=== PATIENT | female | born 1940 | race African-American/Black ===

== ENCOUNTER 2016-09-08 15:11 | Inpatient (IN) ==
[2016-09-08 15:35] LABS: Bilirubin,Urine Negative (Negative); Blood,Urine Moderate (Negative); Clarity,Urine Turbid (Clear); Color,Urine Yellow (Yellow); Glucose,Urine (UA) Normal (Normal); Ketones,Urine Negative (Negative); Leukocyte Esterase,Urine Large (Negative); Nitrite,Urine Positive (Negative); PH,Urine 7.5 pH Units (5.0-8.0); Protein,Urine 100 mg/dL (Neg-Trace); Specific Gravity,Urine 1.013 (1.010-1.025); Urobilinogen,Urine Normal (Normal)
[2016-09-08 15:37] LABS: Bacteria,Urine Many per hpf (None-Few); Hyaline Casts,Urine None Seen per lpf (None-Few); RBC,Urine 15-30 per hpf (0-3); Squamous Epithelial Cell,Urine Many per lpf (None-Few); WBC,Urine TNTC per hpf (0-3)
--- NOTE | 2016-09-08 16:00 | Emergency Department Note ---
Disposition Clinical Impression: Renal failure Disposition: Admitted As Inpatient Condition: Good Referrals: NO,PCP [Primary Care Provider] - Forms: ED Satisfaction Letter SOB HPI - General Chief Complaint: ED Shortness of Breath/Dyspnea Stated Complaint: SOB / Edema Time Seen by Provider: 09/08/16 15:25 Source: EMS Limitations: no limitations Nursing Notes Reviewed: Yes Vital Signs Reviewed: Yes - History of Present Illness Patient presents with shortness of breath, profuse days. Family notes the patient is developing fluid over past month she is a 26 pounds. Patient denies chest pain. EMS reports the patient is alert to person but not to place to time. Unsure if this is patient's baseline. Patient denies any bowel bladder dysfunction. One of her family members relates that the patient was supposedly on dialysis last month but refused at that time. - Related Data Home Medications Medication Instructions Recorded Confirmed Acetaminophen [Tylenol] 500 mg PO Q6HR 09/08/16 09/08/16 Amlodipine Besylate 10 mg PO DAILY 09/08/16 09/08/16 Aspirin 81 mg PO DAILY 09/08/16 09/08/16 Cholecalciferol (Vitamin D3) 1,000 unit PO DAILY 09/08/16 09/08/16 [Vitamin D] Cyanocobalamin (Vitamin B-12) 1,000 mcg SL DAILY 09/08/16 09/08/16 [Vitamin B-12] Furosemide [Lasix] 40 mg PO DAILY 09/08/16 09/08/16 Glucagon,Human Recombinant 1 mg IJ ONCE PRN 09/08/16 09/08/16 [Glucagon Emergency Kit] Insulin Glargine,Hum.rec.anlog 5 unit SQ HS 09/08/16 09/08/16 [Lantus Solostar] Labetalol HCl 200 mg PO BID 09/08/16 09/08/16 Lactulose 60 ml PO BID PRN 09/08/16 09/08/16 Lidocaine [Anecream5] 1 appl TP TID 09/08/16 09/08/16 Pravastatin Sodium [Pravachol] 20 mg PO DAILY 09/08/16 09/08/16 Spironolactone [Aldactone] 25 mg PO DAILY 09/08/16 09/08/16 Allergies Allergy/AdvReac Type Severity Reaction Status Date / Time iodine Allergy Rash Verified 01/24/15 18:30 Penicillins [PCN] Allergy Redness of Verified 01/24/15 18:30 Skin All systems ED: reviewed and negative except as stated. Past Medical History - Past Medical History Source: patient, obtained from family Medical history: Reports: dementia, diabetes, hyperlipidemia, hypertension, renal disease Surgical history: Reports: coronary bypass (CABG), other (daughter thinks maybe patient has had CHF but unsure; patient has no PCP) - Social History Smoking Status: Never smoker Smokeless Tobacco Status: No Alcohol use: Reports: none Drug use: Reports: none Physical Exam - General Limitations: no limitations General appearance: alert - Head Head exam: atraumatic, normocephalic, normal inspection - Eye Eye exam: Present: normal appearance, PERRL, EOMI - ENT ENT exam: normal exam, normal oropharynx, mucous membranes moist - Neck Neck exam: Present: normal inspection, full ROM, trachea midline - Chest Chest inspection: Present: normal inspection, symmetric chest wall rise - Respiratory Respiratory exam: Present: normal lung sounds bilaterally - Cardiovascular Cardiovascular exam: Present: regular rate, normal rhythm, normal heart sounds - Abdominal Exam Abdominal exam: Present: soft, Non-Tender. Absent: tenderness, distention, guarding, rebound, rigidity - Extremities Exam Extremities exam: Present: pedal edema. Absent: tenderness, calf tenderness - Back Exam Back exam: Present: normal inspection, full ROM. Absent: tenderness - Neurological Exam Neurological exam: Present: alert - Psychiatric Psychiatric exam: Present: normal affect. Absent: agitated, anxious - Skin Skin exam: Present: warm, dry, intact, normal color Course Vital Signs Temperature 98.7 F 09/08/16 15:13 Pulse Rate 102 09/08/16 15:13 Respiratory Rate 20 09/08/16 15:13 Blood Pressure 161/87 09/08/16 15:13 O2 Sat by Pulse Oximetry 98 09/08/16 15:13 Temperature 98.7 F 09/08/16 15:13 Pulse Rate 102 09/08/16 15:13 Respiratory Rate 20 09/08/16 15:13 Blood Pressure 161/87 09/08/16 15:13 O2 Sat by Pulse Oximetry 98 09/08/16 15:20 Oxygen Delivery Oxygen Delivery Room Air Shortness of Breath/Dyspnea - MDM Narrative Medical decision making narrative: Patient appears to have worsening renal failure. Patient does have an elevated BNP but I feel this secondary to fluid retention secondary to the kidney dysfunction. Discussed this patient with the hospitalist service who will admit patient to their service for further care work. Discussed dialysis with the patient, she is amenable to having dialysis at this time. - Differential Diagnosis Likely: congestive heart failure, pneumonia, pulmonary embolism - Lab Data Lab results reviewed: Yes I reviewed the patient's lab results. Result diagrams: 09/08/16 16:37 09/08/16 16:37 Lab Results 09/08/16 09/08/16 09/08/16 Range/Units 15:27 16:37 16:37 WBC 6.4 (4.3-11.1) K/mcL RBC 2.32 L (3.82-4.97) M/mcL Hgb 6.7 L (11.5-15.4) g/dL Hct 21.4 L (35.3-44.9) % MCV 92.2 (83.0-100.0) fL MCH 28.9 (28.0-33.3) pg MCHC 31.3 L (31.6-35.5) g/dL RDW 14.7 H (11.5-14.5) % Plt Count 226 (140-400) K/mcL MPV 8.6 L (9.4-12.4) fL Immature Gran % 0.2 (0-4) % Seg Neutrophils % 69.8 % Lymphocytes % 15.7 % Monocytes % 9.4 % Eosinophils % 4.6 % Basophils % 0.3 % Neutrophils # 4.4 (1.6-8.9) K/mcL Lymphocytes # 1.0 (0.6-4.6) K/mcL Monocytes # 0.6 (0.0-1.3) K/mcL Eosinophils # 0.3 (0.0-0.6) K/mcL Basophils # 0.0 (0.0-0.2) K/mcL PT (9.4-12.1) Seconds INR APTT (26.0-36.0) Seconds Sodium 133 L (136-145) mEq/L Potassium 5.7 H (3.5-4.5) mEq/L Chloride 107 (98-109) mEq/L Carbon Dioxide 19 (19-29) mEq/L BUN 59 H (7-20) mg/dL Creatinine 5.15 H (0.57-1.11) mg/dL Est GFR ( Amer) 10 L (> 60) Est GFR (Non-Af Amer) 8 L (> 60) BUN/Creatinine Ratio 11 (6-26) Glucose 149 H (70-99) mg/dL Calculated Osmolality 295 (280-300) Lactic Acid (0.5-2.2) mmol/L Calcium 8.8 (8.6-10.8) mg/dL Total Bilirubin 0.4 (0.2-1.2) mg/dL Direct Bilirubin 0.2 (0.0-0.5) mg/dL Indirect Bilirubin 0.2 (0.0-1.2) mg/dL AST 12 (5-34) Units/L ALT 13 (0-55) Units/L Alkaline Phosphatase 83 (38-126) Units/L Troponin I (0-0.03) ng/mL B-Natriuretic Peptide (0-100) pg/mL Serum Total Protein 6.6 (6.0-8.3) g/dL Albumin 3.3 L (3.5-5.0) g/dL Globulin 3.3 (2.4-3.5) g/dL Albumin/Globulin Ratio 1.0 L (1.1-2.2) Urine Color Yellow (Yellow) Urine Clarity Turbid A (Clear) Urine pH 7.5 (5.0-8.0) pH Units Ur Specific [place] 1.013 (1.010-1.025) Urine Protein 100 H (Neg-Trace) mg/dL Urine Glucose (UA) Normal (Normal) mg/dL Urine Ketones Negative (Negative) mg/dL Urine Blood Moderate H (Negative) Urine Nitrite Positive A (Negative) Urine Bilirubin Negative (Negative) Urine Urobilinogen Normal (Normal) mg/dL Ur Leukocyte Esterase Large H (Negative) Urine Microscopic RBC 15-30 H (0-3) per hpf Urine Microscopic WBC TNTC H (0-3) per hpf Ur Squamous Epith Cells Many H (None-Few) per lpf Urine Bacteria Many H (None-Few) per hpf Hyaline Casts None Seen (None-Few) per lpf Ur Culture Indicated? YES A (NO) 09/08/16 09/08/16 09/08/16 Range/Units 16:37 16:37 16:37 WBC (4.3-11.1) K/mcL RBC (3.82-4.97) M/mcL Hgb (11.5-15.4) g/dL Hct (35.3-44.9) % MCV (83.0-100.0) fL MCH (28.0-33.3) pg MCHC (31.6-35.5) g/dL RDW (11.5-14.5) % Plt Count (140-400) K/mcL MPV (9.4-12.4) fL Immature Gran % (0-4) % Seg Neutrophils % % Lymphocytes % % Monocytes % % Eosinophils % % Basophils % % Neutrophils # (1.6-8.9) K/mcL Lymphocytes # (0.6-4.6) K/mcL Monocytes # (0.0-1.3) K/mcL Eosinophils # (0.0-0.6) K/mcL Basophils # (0.0-0.2) K/mcL PT (9.4-12.1) Seconds INR APTT (26.0-36.0) Seconds Sodium (136-145) mEq/L Potassium (3.5-4.5) mEq/L Chloride (98-109) mEq/L Carbon Dioxide (19-29) mEq/L BUN (7-20) mg/dL Creatinine (0.57-1.11) mg/dL Est GFR ( Amer) (> 60) Est GFR (Non-Af Amer) (> 60) BUN/Creatinine Ratio (6-26) Glucose (70-99) mg/dL Calculated Osmolality (280-300) Lactic Acid 0.5 (0.5-2.2) mmol/L Calcium (8.6-10.8) mg/dL Total Bilirubin (0.2-1.2) mg/dL Direct Bilirubin (0.0-0.5) mg/dL Indirect Bilirubin (0.0-1.2) mg/dL AST (5-34) Units/L ALT (0-55) Units/L Alkaline Phosphatase (38-126) Units/L Troponin I 0.03 (0-0.03) ng/mL B-Natriuretic Peptide 836 H (0-100) pg/mL Serum Total Protein (6.0-8.3) g/dL Albumin (3.5-5.0) g/dL Globulin (2.4-3.5) g/dL Albumin/Globulin Ratio (1.1-2.2) Urine Color (Yellow) Urine Clarity (Clear) Urine pH (5.0-8.0) pH Units Ur Specific [place] (1.010-1.025) Urine Protein (Neg-Trace) mg/dL Urine Glucose (UA) (Normal) mg/dL Urine Ketones (Negative) mg/dL Urine Blood (Negative) Urine Nitrite (Negative) Urine Bilirubin (Negative) Urine Urobilinogen (Normal) mg/dL Ur Leukocyte Esterase (Negative) Urine Microscopic RBC (0-3) per hpf Urine Microscopic WBC (0-3) per hpf Ur Squamous Epith Cells (None-Few) per lpf Urine Bacteria (None-Few) per hpf Hyaline Casts (None-Few) per lpf Ur Culture Indicated? (NO) 09/08/16 Range/Units 16:37 WBC (4.3-11.1) K/mcL RBC (3.82-4.97) M/mcL Hgb (11.5-15.4) g/dL Hct (35.3-44.9) % MCV (83.0-100.0) fL MCH (28.0-33.3) pg MCHC (31.6-35.5) g/dL RDW (11.5-14.5) % Plt Count (140-400) K/mcL MPV (9.4-12.4) fL Immature Gran % (0-4) % Seg Neutrophils % % Lymphocytes % % Monocytes % % Eosinophils % % Basophils % % Neutrophils # (1.6-8.9) K/mcL Lymphocytes # (0.6-4.6) K/mcL Monocytes # (0.0-1.3) K/mcL Eosinophils # (0.0-0.6) K/mcL Basophils # (0.0-0.2) K/mcL PT 11.9 (9.4-12.1) Seconds INR 1.1 APTT 30.1 (26.0-36.0) Seconds Sodium (136-145) mEq/L Potassium (3.5-4.5) mEq/L Chloride (98-109) mEq/L Carbon Dioxide (19-29) mEq/L BUN (7-20) mg/dL Creatinine (0.57-1.11) mg/dL Est GFR ( Amer) (> 60) Est GFR (Non-Af Amer) (> 60) BUN/Creatinine Ratio (6-26) Glucose (70-99) mg/dL Calculated Osmolality (280-300) Lactic Acid (0.5-2.2) mmol/L Calcium (8.6-10.8) mg/dL Total Bilirubin (0.2-1.2) mg/dL Direct Bilirubin (0.0-0.5) mg/dL Indirect Bilirubin (0.0-1.2) mg/dL AST (5-34) Units/L ALT (0-55) Units/L Alkaline Phosphatase (38-126) Units/L Troponin I (0-0.03) ng/mL B-Natriuretic Peptide (0-100) pg/mL Serum Total Protein (6.0-8.3) g/dL Albumin (3.5-5.0) g/dL Globulin (2.4-3.5) g/dL Albumin/Globulin Ratio (1.1-2.2) Urine Color (Yellow) Urine Clarity (Clear) Urine pH (5.0-8.0) pH Units Ur Specific [place] (1.010-1.025) Urine Protein (Neg-Trace) mg/dL Urine Glucose (UA) (Normal) mg/dL Urine Ketones (Negative) mg/dL Urine Blood (Negative) Urine Nitrite (Negative) Urine Bilirubin (Negative) Urine Urobilinogen (Normal) mg/dL Ur Leukocyte Esterase (Negative) Urine Microscopic RBC (0-3) per hpf Urine Microscopic WBC (0-3) per hpf Ur Squamous Epith Cells (None-Few) per lpf Urine Bacteria (None-Few) per hpf Hyaline Casts (None-Few) per lpf Ur Culture Indicated? (NO) - Radiology Data Radiology results reviewed: Yes I reviewed the patient's radiology results. Chest X-Ray 09/08/16 15:26 IMPRESSION: No acute abnormality. Mild cardiomegaly. D/ / All Higuera MD / All Higuera MD Interpreting Provider: All Higuera MD - EKG Data EKG attestation: Yes I reviewed and interpreted this EKG. EKG results narrative: T-wave inversion in lateral leads may indicate lateral ischemia when compared to previous EKG EKG shows normal: Reports: sinus rhythm Rate: Reports: normal Rhythm: Reports: NSR Critical Care Time Total Critical Care Time: 60 Attestation: Critical care performed: Time is exclusive of separately billable procedures. Time includes: direct patient care, patient reassessment, coordination of patient care, interpretation of data (laboratory data, radiology data, and respiratory data), review of patient's medical records, medical consultation and documentation of patient care. Procedures included in critical care time: Procedures excluded from critical care time:
[2016-09-08 16:48] LABS: Basophils % 0.3 %; Eosinophils # 0.3 K/mcL (0.0-0.6); Eosinophils % 4.6 %; Hematocrit 21.4 % (35.3-44.9); Hemoglobin 6.7 g/dL (11.5-15.4); Immature Granulocytes % 0.2 % (0-4); Lymphocytes % 15.7 %; Mean Corpuscular HGB Conc 31.3 g/dL (31.6-35.5); Mean Corpuscular Hemoglobin 28.9 pg (28.0-33.3); Mean Corpuscular Volume 92.2 fL (83.0-100.0); Mean Platelet Volume 8.6 fL (9.4-12.4); Monocytes # 0.6 K/mcL (0.0-1.3); Monocytes % 9.4 %; Neutrophils # 4.4 K/mcL (1.6-8.9); Platelet Count 226 K/mcL (140-400); Red Blood Count 2.32 M/mcL (3.82-4.97); Red Cell Distribution Width 14.7 % (11.5-14.5); Segmented Neutrophils % 69.8 %
[2016-09-08 16:55] LABS: INR 1.1; Prothrombin Time 11.9 Seconds (9.4-12.1)
[2016-09-08 16:57] LABS: Activated Partial Thrombo Time 30.1 Seconds (26.0-36.0)
[2016-09-08 17:03] LABS: Albumin 3.3 g/dL (3.5-5.0); Bilirubin,Direct 0.2 mg/dL (0.0-0.5); Bilirubin,Indirect 0.2 mg/dL (0.0-1.2); Bilirubin,Total 0.4 mg/dL (0.2-1.2); Calcium 8.8 mg/dL (8.6-10.8); Globulin 3.3 g/dL (2.4-3.5); Potassium 5.7 mEq/L (3.5-4.5); Total Protein 6.6 g/dL (6.0-8.3)
[2016-09-08] MEDS ORDERED: *HR* OxyCODONE Immed Rel 5 MG TABLET PO PRN (22:01)
[2016-09-08] MEDS ORDERED: *HR* Morphine 2 MG/ML SYRINGE IVP PRN (22:01)
[2016-09-08] MEDS ORDERED: Naloxone 0.4 MG/ML INJ IVP PRN (22:01)
[2016-09-08] MEDS ORDERED: Pantoprazole 40 MG VIAL IVP STA (22:01)
[2016-09-08] MEDS ORDERED: Ondansetron 4 MG/2 ML VIAL IVP PRN (22:01)
[2016-09-08] MEDS ORDERED: Acetaminophen 325 MG TABLET PO PRN (22:01)
[2016-09-08] MEDS ORDERED: *HR* Dextrose 50 % in Water (Syg) 50 ML SYRINGE IVP PRN (22:14)
[2016-09-08] MEDS ORDERED: Dextrose Gel 15 GM PO PRN ×2 (22:14)
[2016-09-08] MEDS ORDERED: D5% in Water 1,000 ML IVC PRN (22:14)
[2016-09-08] MEDS ORDERED: Bumetanide 1 MG/4 ML VIAL IVP STA (22:17)
[2016-09-08] MEDS ORDERED: metOLazone 2.5 MG TABLET PO STA (22:17)
[2016-09-08] MEDS ORDERED: Ipratropium/Albuterol Neb 3 ML IH PRN (22:21)
[2016-09-08] MEDS ORDERED: Benzonatate 100 MG CAPSULE PO PRN (22:21)
[2016-09-08] MEDS ORDERED: Lactulose Oral Soln 20 GM/30 ML UDC PO ONE (22:21)
[2016-09-08] MEDS ORDERED: Lactulose Oral Soln 20 GM/30 ML UDC PO PRN (22:35)
--- NOTE | 2016-09-08 22:48 | Internal Med History&Physical ---
Date of Encounter: 09/08/16 Time of Encounter: 22:00 Assessment and Plan (1) CKD (chronic kidney disease) stage 5, GFR less than 15 ml/min Current visit: Yes Status: Chronic . (2) BERNADETTE (acute kidney injury) Current visit: Yes Status: Acute . (3) Acute respiratory failure, unspecified whether with hypoxia or hypercapnia Current visit: Yes Status: Acute . Qualifiers: Respiratory failure complication: unspecified whether with hypoxia or hypercapnia Qualified Code(s): J96.00 - Acute respiratory failure, unspecified whether with hypoxia or hypercapnia (4) Dementia arising in the senium and presenium Current visit: Yes Status: Chronic . (5) Type 2 diabetes mellitus Current visit: Yes Status: Chronic . Qualifiers: Diabetes mellitus complication status: with unspecified complications Diabetes mellitus intermodal customer service insulin use: unspecified intermodal customer service insulin use status Qualified Code(s): E11.8 - Type 2 diabetes mellitus with unspecified complications (6) HTN (hypertension) Current visit: Yes Status: Chronic . Qualifiers: Hypertension type: unspecified secondary hypertension Qualified Code(s): I15.9 - Secondary hypertension, unspecified; I15 - Secondary hypertension (7) HLD (hyperlipidemia) Current visit: Yes Status: Chronic . Qualifiers: Hyperlipidemia type: mixed hyperlipidemia Qualified Code(s): E78.2 - Mixed hyperlipidemia (8) CAD (coronary artery disease), [place] coronary artery Current visit: Yes Status: Chronic . Qualifiers: [place] vs. transplanted heart: [place] heart Associated angina: without angina Qualified Code(s): I25.10 - Atherosclerotic heart disease of [place] coronary artery without angina pectoris (9) Hx of CABG Current visit: Yes Status: Chronic . (10) UTI (urinary tract infection) Current visit: Yes Status: Acute . Qualifiers: Urinary tract infection type: acute cystitis Hematuria presence: without hematuria Qualified Code(s): N30.00 - Acute cystitis without hematuria (11) Anasarca associated with disorder of kidney Current visit: Yes Status: Acute . (12) Nephrotic range proteinuria Current visit: Yes Status: Acute . Internal Medicine - H&P: HPI Chief complaint: Difficulty breathing. Peripheral edema. Confusion. Admitted From: Emergency Dept Plans for Post Hospital Care: Home History of present illness: Ms. Montoya is a 75 year old female significant medical history type II DM, CAD /CABG/AMI, osteoarthritis, osteoporosis/vitamin D deficiency, nonoliguric CKD stage V, dementia unspecified, hypertension, dyslipidemia, urinary retention/ rec UTIs, nephrolithiasis, obesity, nonsmoker. The patient is admitted to [facility] through the emergency department when she presented company of family via EMS services from home to evaluate progressive shortness of breath. Patient acknowledges via family validated history gradual fluid retention/weight gain of approximately 26 pounds in the last month. As a consequence acknowledges some dyspnea at rest and with exertion, peripheral edema, and general malaise. There is no associated chest pain perceived. There is no upper or lower respiratory complaints of productive cough and chest congestion audible wheezing. She acknowledges some PND and mild orthopnea. There is no reported fevers chills sweats nausea vomiting abdominal pain. The patient had been evaluated within the year for possible initiation of hemodialysis due to progressive renal function decline. Patient however declined enrollment. Trending of the creatinines and found them to be essentially stable at the 4.0-4.9 range for 2017. This month's creatinine is stuck the highest recorded at 5.15 with BUN of 59 and a GFR of 8. Additional findings noted stable vital signs. Pulse rate however elevated at 102 sinus rhythm. Respiratory rate 20. Afebrile. Pulse oximetry 98% on room air. Blood pressure 161/87 without orthostasis. WBC 6.4 hemoglobin 6.7 platelets 226 ,000. RDW 14.7. Differential normal. Comprehensive metabolic panel sodium 133 potassium 5.7. BUN 59 creatinine 5.15 GFR 8. Glucose 149, osmolality 295. Hepatic function normal. Albumin 3.3 with a total protein 6.6. Urinalysis demonstrated large protein and moderate blood and positive nitrite. Large leukocyte esterase. 30 RBC. WBC were too numerous to count. Many squamous epithelial cells. Many bacteria. Lactic acid 0.5. Troponin 0.0. BNP 836. PT 11.9 INR 1.1 PTT 30.1. Chest x-ray demonstrated no acute abnormality. Patient is status post CABG. No focal infiltrate or consolidations seen. No evidence of pneumothorax or measurable pleural effusion. Mild cardiomegaly noted. EKG demonstrates normal sinus rhythm. No acute ischemic changes. Preliminary impression suggest worsening chronic kidney disease stage V. Patient is yet to initiate preparation for end-stage renal disease hemodialysis. Impressive diffuse edema consistent with anasarca due to end- stage renal disease is apparent. Metabolic and electrolyte derangements also insisted with progressive end-stage disease. Suspect associated nephrotic syndrome given the degree of proteinuria evident in urinalysis and significant peripheral edema born by the patient. Urinalysis suggests a concomitant infection. Patient is nonoliguric. SIRS/sepsis criteria not fulfilled at the time of admission. Although the patient had reportedly declined enrollment hemodialysis in the past so she seems amenable to it at this time. However due to her degree of dementia is hard to validate She is however at increased risk for further acute clinical decline, morbidility and mortality given her presentation and comorbid conditions. Workup and treatments will proceed comprehensively. The patient was visited and interviewed and examined. She presents mildly encephalopathic but appropriate. Response to direct questions were appropriate and direct in response. She accepted at least in principal the need for further evaluation of her kidney function and intervention. We discussed consulting a specialist in nephrology. She accepted this. We discussed providing her intravenous diuretic therapy to offload the volume excess. She accepted this. At no time did she demand release from continuing appropriate medical care or potential surgical intervention. Again further investigation of her complete understanding of her current health situation and commitment is required. Cumulative laboratory and radiographic database was reviewed and considered. Consultative opinions will be sought as clinical circumstances justify. Initial consultative opinion has been requested of nephrology. Consultation of psychiatry will be considered for assessment of competency at the discretion of the attending team. Plan of care has been discussed with the patient. Questions were addressed. Hospital course will be dependent upon clinical findings, treatment response and potential consultative interventions. Given the patient's presenting concerns, past medical history, clinical findings and symptoms, she is admitted at this time to undergo further evaluation and disposition. Orders were written as per the computerized physician time recorder system. Condition is serious. Very high risk presentation for poor outcome. Evolving multiorgan derangements apparent. Prognosis is highly guarded. CODE STATUS is DNR comfort care arrest Past Med Surg Social Fam HX - Past Medical History Source: old records reviewed Medical history: arthritis, coronary artery disease, dementia, diabetes, hyperlipidemia, hypertension, kidney stones, myocardial infarction, osteoporosis (Vitamin D deficiency.), renal disease, other Psychiatric history: other - Past Surgical History Surgical History: coronary bypass (CABG), other - Social History Smoking Status: Never smoker Smokeless Tobacco Status: No Alcohol use: none Drug use: none Occupational status: retired Current living situation: Home, With Family Activity Level: Independent ambulation, Mostly sedentary Recent Out of Country Travel Within the Last 8 Weeks: No Exposure or Possible Exposure to Illness During Travel: No - Family History Mother History Unknown: Yes Internal Medicine - H&P: Meds Acetaminophen [Tylenol] 500 mg PO Q6HR 09/08/16 [History] Amlodipine Besylate 10 mg PO DAILY 09/08/16 [History] Aspirin 81 mg PO DAILY 09/08/16 [History] Cholecalciferol (Vitamin D3) [Vitamin D] 1,000 unit PO DAILY 09/08/16 [History] Cyanocobalamin (Vitamin B-12) [Vitamin B-12] 1,000 mcg SL DAILY 09/08/16 [ History] Furosemide [Lasix] 40 mg PO DAILY 09/08/16 [History] Glucagon,Human Recombinant [Glucagon Emergency Kit] 1 mg IJ ONCE PRN 09/08/16 [ History] Insulin Glargine,Hum.rec.anlog [Lantus Solostar] 5 unit SQ HS 09/08/16 [History] Labetalol HCl 200 mg PO BID 09/08/16 [History] Lactulose 60 ml PO BID PRN 09/08/16 [History] Lidocaine [Anecream5] 1 appl TP TID 09/08/16 [History] Pravastatin Sodium [Pravachol] 20 mg PO DAILY 09/08/16 [History] Spironolactone [Aldactone] 25 mg PO DAILY 09/08/16 [History] Allergies iodine Allergy (Verified 01/24/15 18:30) Rash Penicillins [PCN] Allergy (Verified 01/24/15 18:30) Redness of Skin ROS unobtainable: due to mental status All Systems PM: A 10-system review of systems was performed and is negative for pertinent findings except as documented above in the HPI. The patient presents with underlying history of dementia and is a limited historian of the current circumstances and events. Details are collected from EMS and ED triage by attending staff, review of available medical records and family members at the bedside. - Constitutional Constitutional: as per HPI - EENT Eyes: as per HPI Ears: as per HPI Nose, mouth and throat: as per HPI - Cardiovascular Cardiovascular ROS IM: as per HPI - Respiratory Respiratory: as per HPI - Gastrointestinal Gastrointestinal: as per HPI - Genitourinary Genitourinary: as per HPI - Musculoskeletal Musculoskeletal ROS IM: as per HPI - Integumentary Integumentary IM: as per HPI - Neurological Neurological ROS: as per HPI - Psychiatric Psychiatric: as per HPI - Endocrine Endocrine IM: as per HPI - Hematologic/Lymphatic Hematologic/Lymphatic: as per HPI - Allergic/Immunologic Allergic/Immunologic: as per HPI - Constitutional Vitals: Temp Pulse Resp BP Pulse Ox 98.7 F 68 16 214/68 96 09/08/16 19:37 09/08/16 20:19 09/08/16 20:19 09/08/16 20:19 09/08/16 20:19 Vital Signs Temp Pulse Resp BP Pulse Ox 09/08/16 20:19 68 16 214/68 96 09/08/16 19:37 98.7 F 81 16 168/84 97 09/08/16 18:03 18 169/90 09/08/16 15:20 98 09/08/16 15:13 98.7 F 102 20 161/87 98 Intake and Output 09/08/16 09/08/16 09/08/16 07:59 15:59 23:59 Other: Weight 92.986 kg 94.2 kg Blood Glucose* 263 Patient Weight 09/08/16 23:59 Weight 94.2 kg General appearance: Present: cooperative, A&O X 1, mild distress, morbidly obese , answers questions appropriately - Head Head exam: Present: atraumatic, normocephalic - Eye Eye exam: Present: EOMI, PERRL, conjuntiva pink, sclera anicteric Pupils: Present: normal accommodation, PERRL - ENT ENT exam: Present: mucous membranes moist, normal oropharynx - Neck Neck exam general surgery: Present: supple, trachea midline. Absent: lymphadenopathy, nuchal rigidity - Respiratory Respiratory exam: Present: decreased breath sounds, rales. Absent: accessory muscle use, CTAB, respiratory distress, rhonchi, stridor, wheezes - Cardiovascular Cardiovascular exam: Present: distant heart sounds, RRR, +S1, +S2. Absent: diastolic murmur, gallop, rubs, systolic murmur - GI/Abdominal GI/Abdominal exam: Present: diminished bowel sounds, distended, soft, no peritoneal signs. Absent: guarding, rebound, tenderness - Extremities Exam Extremities exam: Present: pedal edema, warm, radial pulses palpable and symetrical. Absent: calf tenderness, cyanotic, normal inspection, tenderness - Neurological Exam Neurological exam: Present: alert, altered, CN II-XII intact, no focal deficits. Absent: oriented X3, pronater drift, facial droop, speech deficit - Expanded Neurological Exam Neurological exam expanded: Present: protecting the airway. Absent: expressive aphasia, receptive aphasia Patient oriented to: Present: person. Absent: place, time Speech: Present: garbled. Absent: expressive aphasia, receptive aphasia Coma Scale Eye Opening: Spontaneous Coma Scale Motor Response: Obeys Commands Coma Scale Verbal Response: Confused Coma Scale Total: 14 - Psychiatric Psychiatric exam: Present: normal affect, normal mood - Skin Skin exam: Present: dry, intact, warm. Absent: petechiae, rash, urticaria, vesicles Internal Med - H&P Results - Labs CBC & Chem 7: 09/08/16 16:37 09/08/16 16:37 Labs: Short CBC 09/08/16 Range/Units 16:37 WBC 6.4 (4.3-11.1) K/mcL Hgb 6.7 L (11.5-15.4) g/dL Hct 21.4 L (35.3-44.9) % Plt Count 226 (140-400) K/mcL Neutrophils # 4.4 (1.6-8.9) K/mcL BMP 09/08/16 Range/Units 16:37 Sodium 133 L (136-145) mEq/L Potassium 5.7 H (3.5-4.5) mEq/L Chloride 107 (98-109) mEq/L Carbon Dioxide 19 (19-29) mEq/L BUN 59 H (7-20) mg/dL Creatinine 5.15 H (0.57-1.11) mg/dL Glucose 149 H (70-99) mg/dL Calcium 8.8 (8.6-10.8) mg/dL Cardiac Enzymes 09/08/16 Range/Units 16:37 Troponin I 0.03 (0-0.03) ng/mL Liver Function 09/08/16 Range/Units 16:37 Total Bilirubin 0.4 (0.2-1.2) mg/dL Direct Bilirubin 0.2 (0.0-0.5) mg/dL AST 12 (5-34) Units/L ALT 13 (0-55) Units/L Alkaline Phosphatase 83 (38-126) Units/L Albumin 3.3 L (3.5-5.0) g/dL Urine 09/08/16 Range/Units 15:27 Urine Color Yellow (Yellow) Urine Clarity Turbid A (Clear) Urine pH 7.5 (5.0-8.0) pH Units Ur Specific [place] 1.013 (1.010-1.025) Urine Protein 100 H (Neg-Trace) mg/dL Urine Glucose (UA) Normal (Normal) mg/dL Abnormal lab results RBC 2.32 M/mcL (3.82-4.97) L 09/08/16 16:37 Hgb 6.7 g/dL (11.5-15.4) L 09/08/16 16:37 Hct 21.4 % (35.3-44.9) L 09/08/16 16:37 MCHC 31.3 g/dL (31.6-35.5) L 09/08/16 16:37 RDW 14.7 % (11.5-14.5) H 09/08/16 16:37 MPV 8.6 fL (9.4-12.4) L 09/08/16 16:37 Sodium 133 mEq/L (136-145) L 09/08/16 16:37 Potassium 5.7 mEq/L (3.5-4.5) H 09/08/16 16:37 BUN 59 mg/dL (7-20) H 09/08/16 16:37 Creatinine 5.15 mg/dL (0.57-1.11) H 09/08/16 16:37 Est GFR ( Amer) 10 (> 60) L 09/08/16 16:37 Est GFR (Non-Af Amer) 8 (> 60) L 09/08/16 16:37 Glucose 149 mg/dL (70-99) H 09/08/16 16:37 B-Natriuretic Peptide 836 pg/mL (0-100) H 09/08/16 16:37 Albumin 3.3 g/dL (3.5-5.0) L 09/08/16 16:37 Albumin/Globulin Ratio 1.0 (1.1-2.2) L 09/08/16 16:37 Urine Clarity Turbid (Clear) A 09/08/16 15:27 Urine Protein 100 mg/dL (Neg-Trace) H 09/08/16 15:27 Urine Blood Moderate (Negative) H 09/08/16 15:27 Urine Nitrite Positive (Negative) A 09/08/16 15:27 Ur Leukocyte Esterase Large (Negative) H 09/08/16 15:27 Urine Microscopic RBC 15-30 per hpf (0-3) H 09/08/16 15:27 Urine Microscopic WBC TNTC per hpf (0-3) H 09/08/16 15:27 Ur Squamous Epith Cells Many per lpf (None-Few) H 09/08/16 15:27 Urine Bacteria Many per hpf (None-Few) H 09/08/16 15:27 Ur Culture Indicated? YES (NO) A 09/08/16 15:27 Laboratory Results WBC 6.4 K/mcL (4.3-11.1) 09/08/16 16:37 RBC 2.32 M/mcL (3.82-4.97) L 09/08/16 16:37 Hgb 6.7 g/dL (11.5-15.4) L 09/08/16 16:37 Hct 21.4 % (35.3-44.9) L 09/08/16 16:37 MCV 92.2 fL (83.0-100.0) 09/08/16 16:37 MCH 28.9 pg (28.0-33.3) 09/08/16 16:37 MCHC 31.3 g/dL (31.6-35.5) L 09/08/16 16:37 RDW 14.7 % (11.5-14.5) H 09/08/16 16:37 Plt Count 226 K/mcL (140-400) 09/08/16 16:37 MPV 8.6 fL (9.4-12.4) L 09/08/16 16:37 Immature Gran % 0.2 % (0-4) 09/08/16 16:37 Seg Neutrophils % 69.8 % 09/08/16 16:37 Lymphocytes % 15.7 % 09/08/16 16:37 Monocytes % 9.4 % 09/08/16 16:37 Eosinophils % 4.6 % 09/08/16 16:37 Basophils % 0.3 % 09/08/16 16:37 Neutrophils # 4.4 K/mcL (1.6-8.9) 09/08/16 16:37 Lymphocytes # 1.0 K/mcL (0.6-4.6) 09/08/16 16:37 Monocytes # 0.6 K/mcL (0.0-1.3) 09/08/16 16:37 Eosinophils # 0.3 K/mcL (0.0-0.6) 09/08/16 16:37 Basophils # 0.0 K/mcL (0.0-0.2) 09/08/16 16:37 PT 11.9 Seconds (9.4-12.1) 09/08/16 16:37 INR 1.1 09/08/16 16:37 APTT 30.1 Seconds (26.0-36.0) 09/08/16 16:37 Sodium 133 mEq/L (136-145) L 09/08/16 16:37 Potassium 5.7 mEq/L (3.5-4.5) H 09/08/16 16:37 Chloride 107 mEq/L (98-109) 09/08/16 16:37 Carbon Dioxide 19 mEq/L (19-29) 09/08/16 16:37 BUN 59 mg/dL (7-20) H 09/08/16 16:37 Creatinine 5.15 mg/dL (0.57-1.11) H 09/08/16 16:37 Est GFR ( Amer) 10 (> 60) L 09/08/16 16:37 Est GFR (Non-Af Amer) 8 (> 60) L 09/08/16 16:37 BUN/Creatinine Ratio 11 (6-26) 09/08/16 16:37 Glucose 149 mg/dL (70-99) H 09/08/16 16:37 Calculated Osmolality 295 (280-300) 09/08/16 16:37 Lactic Acid 0.5 mmol/L (0.5-2.2) 09/08/16 16:37 Calcium 8.8 mg/dL (8.6-10.8) 09/08/16 16:37 Total Bilirubin 0.4 mg/dL (0.2-1.2) 09/08/16 16:37 Direct Bilirubin 0.2 mg/dL (0.0-0.5) 09/08/16 16:37 Indirect Bilirubin 0.2 mg/dL (0.0-1.2) 09/08/16 16:37 AST 12 Units/L (5-34) 09/08/16 16:37 ALT 13 Units/L (0-55) 09/08/16 16:37 Alkaline Phosphatase 83 Units/L (38-126) 09/08/16 16:37 Troponin I 0.03 ng/mL (0-0.03) 09/08/16 16:37 B-Natriuretic Peptide 836 pg/mL (0-100) H 09/08/16 16:37 Serum Total Protein 6.6 g/dL (6.0-8.3) 09/08/16 16:37 Albumin 3.3 g/dL (3.5-5.0) L 09/08/16 16:37 Globulin 3.3 g/dL (2.4-3.5) 09/08/16 16:37 Albumin/Globulin Ratio 1.0 (1.1-2.2) L 09/08/16 16:37 Urine Color Yellow (Yellow) 09/08/16 15: Urine Clarity Turbid (Clear) A 09/08/16 15: Urine pH 7.5 pH Units (5.0-8.0) 09/08/16 15: Ur Specific [place] 1.013 (1.010-1.025) 09/08/16 15: Urine Protein 100 mg/dL (Neg-Trace) H 09/08/16 15:27 Urine Glucose (UA) Normal mg/dL (Normal) 09/08/16 15: Urine Ketones Negative mg/dL (Negative) 09/08/16 15: Urine Blood Moderate (Negative) H 09/08/16 15:27 Urine Nitrite Positive (Negative) A 09/08/16 15: Urine Bilirubin Negative (Negative) 09/08/16 15: Urine Urobilinogen Normal mg/dL (Normal) 09/08/16 15:27 Ur Leukocyte Esterase Large (Negative) H 09/08/16 15:27 Urine Microscopic RBC 15-30 per hpf (0-3) H 09/08/16 15:27 Urine Microscopic WBC TNTC per hpf (0-3) H 09/08/16 15:27 Ur Squamous Epith Cells Many per lpf (None-Few) H 09/08/16 15:27 Urine Bacteria Many per hpf (None-Few) H 09/08/16 15:27 Hyaline Casts None Seen per lpf (None-Few) 09/08/16 15:27 Ur Culture Indicated? YES (NO) A 09/08/16 15:27 Impressions Chest X-Ray 09/08/16 15:26 IMPRESSION: No acute abnormality. Mild cardiomegaly. D/ / All Higuera MD / All Higuera MD Interpreting Provider: All Higuera MD Head CT 09/08/16 19:42 IMPRESSION: No acute intracranial abnormality. D/ / Carlito Roa MD / Carlito Roa MD Interpreting Provider: Carlito Roa MD - Impressions ITS Impressions Head CT 09/08/16 19:42
[2016-09-08 23:05] LABS: VBG HCO3 20.6 mEq/L (21-27); VBG PH 7.33 pH Units (7.32-7.42)
[2016-09-08] MEDS ORDERED: 0.9 % Sodium Chloride 1,000 ML ONE (23:06)
[2016-09-08 23:14] LABS: Hemoglobin A1C 4.8 %
[2016-09-08] MEDS: Bumetanide 12 MG in D5% in Water 48 ML IVC SCH (23:39)
[2016-09-09 03:41] LABS: Protein/Creatinine Ratio,Urine 5.23 mg/mg (0-0.20)
[2016-09-09] MEDS: *HR* Heparin 5,000 UNIT/ML VIAL SQ SCH ×2 (06:10→16:54)
[2016-09-09 06:13] LABS: Basophils % 0.4 %; Eosinophils # 0.3 K/mcL (0.0-0.6); Eosinophils % 3.6 %; Hematocrit 20.2 % (35.3-44.9); Hemoglobin 6.5 g/dL (11.5-15.4); Immature Granulocytes % 0.3 % (0-4); Lymphocytes # 1.3 K/mcL (0.6-4.6); Lymphocytes % 17.5 %; Mean Corpuscular HGB Conc 32.2 g/dL (31.6-35.5); Mean Corpuscular Hemoglobin 29.4 pg (28.0-33.3); Mean Corpuscular Volume 91.4 fL (83.0-100.0); Mean Platelet Volume 8.8 fL (9.4-12.4); Monocytes # 0.9 K/mcL (0.0-1.3); Monocytes % 11.5 %; Platelet Count 211 K/mcL (140-400); Red Blood Count 2.21 M/mcL (3.82-4.97); Red Cell Distribution Width 14.8 % (11.5-14.5); Segmented Neutrophils % 66.7 %
[2016-09-09 06:17] LABS: Ionized Calcium 1.15 mmol/L (1.15-1.35)
[2016-09-09 06:30] LABS: Calcium 9.1 mg/dL (8.6-10.8); Chol/HDL Ratio 2.7 (0-4.9); Magnesium 1.7 mg/dL (1.6-2.6); Phosphorous 5.5 mg/dL (2.3-4.7); Potassium 5.3 mEq/L (3.5-4.5)
[2016-09-09] MEDS: Insulin LISPRO 300 UNITS/3 ML VIAL SQ SCH ×4 (07:29→20:44)
[2016-09-09] MEDS: Aspirin 81 MG TAB.CHEW PO SCH (09:16)
[2016-09-09] MEDS: Cyanocobalamin (B-12) 1,000 MCG TABLET PO SCH (09:17)
[2016-09-09] MEDS: amLODIPine 5 MG TABLET PO SCH (09:17)
[2016-09-09] MEDS: Cholecalciferol (D-3) 1,000 UNIT TABLET PO SCH (09:17)
--- NOTE | 2016-09-09 09:20 | Nephrology Consult Note ---
Date of Encounter: 10/08/16 Time of Encounter: 09:17 Assessment and Plan (1) CKD (chronic kidney disease) stage 5, GFR less than 15 ml/min Status: Chronic I would like this note to be deleted. O Patient with progressive stage 5 CKD likely secondary to hypertension and diabetes. From looking at eCW it appears that the patient has poor follow-up with physicians. She recalls having a conversation with a doctor about dialysis, but can't recall the name of the physician or when she had the conversation. (2) Anemia Status: Acute Likely related to CKD. Evaluate for a source of bleeding. Will check iron stores, vitamin b12 and folate. Likely contributed to sensation of dyspnea. Transfuse as needed. Will likely need RUBIN. Qualifiers: Anemia type: unspecified type Qualified Code(s): D64.9 - Anemia, unspecified (3) Hyperphosphatemia Status: Chronic Start phosphate binder. (4) Type 2 diabetes mellitus Status: Chronic Per primary team. Qualifiers: Diabetes mellitus complication status: with unspecified complications Diabetes mellitus half-way insulin use: unspecified bed bug exterminator insulin use status Qualified Code(s): E11.8 - Type 2 diabetes mellitus with unspecified complications (5) HTN (hypertension) Status: Chronic Patient with uncontrolled hypertension. Goal blood pressure <130/80 if tolerated. Qualifiers: Hypertension type: unspecified secondary hypertension Qualified Code(s): I15.9 - Secondary hypertension, unspecified; I15 - Secondary hypertension History of Present Illness - Reason for Consult Consult date: 09/09/16 Chronic Kidney Disease - Chief Complaint CKD - History of Present Illness I would like this note deleted. Past Med Surg Social Fam HX - Past Medical History Medical history: arthritis, coronary artery disease, dementia, diabetes, hyperlipidemia, hypertension, kidney stones, myocardial infarction, osteoporosis (Vitamin D deficiency.), renal disease, other Psychiatric history: other - Past Surgical History Surgical History: coronary bypass (CABG), other - Social History Smoking Status: Never smoker Smokeless Tobacco Status: No Alcohol use: none Drug use: none - Family History Mother History Unknown: Yes Medications and Allergies Acetaminophen [Tylenol] 500 mg PO Q6HR 09/08/16 [History] Amlodipine Besylate 10 mg PO DAILY 09/08/16 [History] Aspirin 81 mg PO DAILY 09/08/16 [History] Cholecalciferol (Vitamin D3) [Vitamin D3] 1,000 unit PO DAILY 09/08/16 [History] Cyanocobalamin (Vitamin B-12) [Vitamin B-12] 1,000 mcg SL DAILY 09/08/16 [ History] Glucagon,Human Recombinant [Glucagon Emergency Kit] 1 mg IJ ONCE PRN 09/08/16 [ History] Lactulose 60 ml PO BID PRN 09/08/16 [History] Lidocaine [Anecream5] 1 appl TP TID 09/08/16 [History] Pravastatin Sodium [Pravachol] 20 mg PO DAILY 09/08/16 [History] Darbepoetin [Aranesp] 100 mcg SQ QWEEK syringe 09/20/16 [Rx] Donepezil [Aricept] 5 mg PO HS tablet 09/20/16 [Rx] Folic Acid 5 mg PO DAILY tablet 09/20/16 [Rx] Insulin DETEMIR [Levemir] 5 unit SQ HS [id number] 09/20/16 [Rx] Labetalol [Trandate] 300 mg PO TID tablet 09/20/16 [Rx] hydrALAZINE [HydrALAZINE] 50 mg PO TID #0 tablet 09/20/16 [Rx] Allergies iodine Allergy (Verified 01/24/15 18:30) Rash Penicillins [PCN] Allergy (Verified 01/24/15 18:30) Redness of Skin Exam - Vital Signs Vital signs: Initial Vital Signs Temp Pulse Resp BP Pulse Ox 98.7 F 102 20 161/87 98 09/08/16 15:13 09/08/16 15:13 09/08/16 15:13 09/08/16 15:13 09/08/16 15:13 Vital Signs - Last 8 Hours Temp Pulse Resp BP Pulse Ox 09/09/16 06:42 98.8 F 79 16 169/84 100 09/09/16 04:32 98.3 F 81 16 170/73 97 Intake and Output 09/08/16 09/09/16 09/09/16 23:59 07:59 15:59 Output Total 725 / 725 750 / 750 Balance -725 / -725 -750 / -750 Output: Catheter 725 / 725 750 / 750 Other: Stool Size Copious Stool Consistency loose soft Stool Color Brown # Bowel Movements 1 Weight 94.2 kg Blood Glucose* 263 99 Results - Lab Results 09/19/16 06:25 09/20/16 06:40 Most recent lab results Calcium 9.1 mg/dL (8.6-10.8) 09/09/16 05:58 Phosphorus 5.5 mg/dL (2.3-4.7) H 09/09/16 05:58 Magnesium 1.7 mg/dL (1.6-2.6) 09/09/16 05:58 Urine Creatinine 22 mg/dL 09/09/16 03:15 Urine Total Protein 115 mg/dL (1-14) H 09/09/16 03:15 Consult Discharge Plan - Plan Referrals: NO,PCP [Primary Care Provider] - (Patient will follow up with PCP at [facility])
--- NOTE | 2016-09-09 10:13 | Internal Med Progress Note ---
Date of Encounter: 09/09/16 Time of Encounter: 10:11 - Assessment and plan (1) CKD (chronic kidney disease) stage 5, GFR less than 15 ml/min Current Visit: Yes Status: Chronic Assessment and plan: Patient with underlying chronic kidney disease, GFR less than 15. Patient states that it is okay with dialysis if needed. We will obtain a consultation with nephrology for further recommendations. Initially, a consultation with nephrology was placed, however erroneously it was placed to the wrong nephrology group. The patient has been seen in the past by Dr. Turner's group. We will follow recommendations. In the meantime, we will continue with diuretic therapy. (2) HTN (hypertension) Current Visit: Yes Status: Chronic Qualifiers: Hypertension type: unspecified secondary hypertension Qualified Code(s): I15.9 - Secondary hypertension, unspecified; I15 - Secondary hypertension (3) Anemia Current Visit: Yes Status: Acute Assessment and plan: Likely secondary to chronic kidney disease. Essentially unchanged since last month. Qualifiers: Anemia type: unspecified type Qualified Code(s): D64.9 - Anemia, unspecified - Time Spent With Patient 25 - 35 minutes - Subjective Interval history: 1st encounter with the patient. The patient states that she would be okay with dialysis if she needs to have it. She is alert, awake, oriented in person and place, not oriented in time. - Constitutional Vitals: Temp Pulse Resp BP Pulse Ox 98.8 F 79 16 169/84 100 09/09/16 06:42 09/09/16 06:42 09/09/16 06:42 09/09/16 06:42 09/09/16 06:42 General appearance: Present: cooperative, A&O X 2, mild distress, morbidly obese , answers questions appropriately Exam: herrera bag with clear urine. - Head Head exam: Present: atraumatic, normocephalic - Eye Eye exam: Present: PERRL, conjuntiva pink, sclera anicteric Pupils: Present: PERRL - Neck Neck exam general surgery: Present: supple, trachea midline. Absent: lymphadenopathy - Respiratory Respiratory exam: Present: CTAB. Absent: accessory muscle use, rales, rhonchi, wheezes - Cardiovascular Cardiovascular exam: Present: RRR, +S1, +S2. Absent: diastolic murmur, gallop, rubs, systolic murmur - GI/Abdominal GI/Abdominal exam: Present: normal bowel sounds, soft, no peritoneal signs. Absent: distended, tenderness - Extremities Exam Extremities exam: Present: warm, radial pulses palpable and symetrical. Absent : calf tenderness, cyanotic, pedal edema - Neurological Exam Neurological exam: Present: CN II-XII intact, oriented X3, no focal deficits. Absent: pronater drift, facial droop, speech deficit - Skin Skin exam: Present: dry, intact Internal Medicine: Result - Labs CBC & Chem 7: 09/09/16 05:58 09/09/16 05:58 Labs: Short CBC 09/09/16 Range/Units 05:58 WBC 7.5 (4.3-11.1) K/mcL Hgb 6.5 L (11.5-15.4) g/dL Hct 20.2 L (35.3-44.9) % Plt Count 211 (140-400) K/mcL Neutrophils # 5.0 (1.6-8.9) K/mcL BMP 09/09/16 05:58 Sodium 137 Potassium 5.3 H Chloride 110 H Carbon Dioxide 20 BUN 59 H Creatinine 5.15 H Glucose 74 Calcium 9.1 Cardiac Enzymes 09/09/16 Range/Units 05:58 Troponin I 0.05 H* (0-0.03) ng/mL - ABG Interpretation ABG results: PT/INR, D-dimer PT 11.9 Seconds (9.4-12.1) 09/08/16 16:37 - Impressions Impressions Head CT 09/08/16 19:42 IMPRESSION: No acute intracranial abnormality. D/ / Carlito Roa MD / Carlito Roa MD Interpreting Provider: Carlito Roa MD - VTE Documentation of Mechanical Device: Graduated compression elastic hosiery Consult Discharge Plan - Plan Referrals: NO,PCP [Primary Care Provider] -
[2016-09-09] MEDS: Insulin DETEMIR 100 UNIT/ML X5UNITS SQ SCH (20:44)
[2016-09-09] MEDS ORDERED: INSULIN GLARGINE HUM REC ANLOG U SQ SCH (21:00)
[2016-09-09] MEDS ORDERED: [UNRECOGNIZED DRUG - OTHER] SQ SCH (21:00)
[2016-09-09] MEDS: Bumetanide 12 MG in D5% in Water 48 ML IVC SCH (21:57)
[2016-09-10 04:04] LABS: Basophils % 0.3 %; Eosinophils # 0.4 K/mcL (0.0-0.6); Eosinophils % 4.7 %; Hematocrit 19.4 % (35.3-44.9); Hemoglobin 6.2 g/dL (11.5-15.4); Immature Granulocytes % 0.4 % (0-4); Lymphocytes # 1.3 K/mcL (0.6-4.6); Lymphocytes % 17.7 %; Mean Corpuscular Hemoglobin 29.1 pg (28.0-33.3); Mean Corpuscular Volume 91.1 fL (83.0-100.0); Mean Platelet Volume 9.4 fL (9.4-12.4); Monocytes # 0.8 K/mcL (0.0-1.3); Monocytes % 10.3 %; Platelet Count 224 K/mcL (140-400); Red Blood Count 2.13 M/mcL (3.82-4.97); Red Cell Distribution Width 14.6 % (11.5-14.5); Segmented Neutrophils % 66.6 %
[2016-09-10 04:22] LABS: Calcium 8.6 mg/dL (8.6-10.8); Potassium 5.1 mEq/L (3.5-4.5)
[2016-09-10] MEDS: *HR* Heparin 5,000 UNIT/ML VIAL SQ SCH ×2 (05:31→17:02)
[2016-09-10] MEDS: amLODIPine 5 MG TABLET PO SCH (08:11)
[2016-09-10] MEDS: Cholecalciferol (D-3) 1,000 UNIT TABLET PO SCH (08:11)
[2016-09-10] MEDS: Cyanocobalamin (B-12) 1,000 MCG TABLET PO SCH (08:11)
[2016-09-10] MEDS: Aspirin 81 MG TAB.CHEW PO SCH (08:11)
[2016-09-10] MEDS: Insulin LISPRO 300 UNITS/3 ML VIAL SQ SCH ×4 (08:12→20:27)
--- NOTE | 2016-09-10 09:21 | ECHO - Doppler Report ---
Echocardiogram Name: Mayte Montoya Date of Study: 09/09/2016 Date: 1940 Ht: 64.0 in Medical Record#: [id number] Age: 75 Wt: 207.0 lb Gender: Female BSA: 1.98 Order #: [id number] Location: [facility] Room #: 2A51 Reading Physician: Farrah Lee DO Bill Recapitulation Clerk: Dorinda Ruelas RDCS, RVT Ordering Physician: Yang Barry MD Primary Physician: None Indications: Acute Coronary Syndrome, Symptomatic Volume Overload Impressions: LVEF 55%. Normal left ventricular size and systolic function. Atypical septal motion. RV is not well evaluated. Mild tricuspid regurgitation. Mild pulmonic regurgitation. Mild pulmonary hypertension. Left Ventricular Wall Motion: Rest Echo Findings All wall segments showed normal motion. Findings: Study Quality * Technically adequate exam. ECG Findings * Normal sinus rhythm. Left Ventricle * Atypical septal motion consistent with post-operative status. * LVEF 55%. * Mild left ventricular diastolic dysfunction. Mitral Valve * Mildly thickened mitral valve leaflets. * Mild mitral annular calcification * Mild mitral regurgitation. * No mitral stenosis. Aortic Valve * No aortic regurgitation. * Aortic valve not well visualized. * Aortic sclerosis. * No aortic stenosis. Tricuspid Valve * Normal tricuspid valve structure. * Mild tricuspid regurgitation. * Estimated RA pressure is 3 mmHg. * Estimated RVSP is 40 mmHg. * Mild pulmonary hypertension. Pulmonic Valve * Pulmonic valve is not well visualized. * No pulmonic stenosis. * Mild pulmonic regurgitation. Pulmonary Artery * Pulmonary artery not well visualized. Right Atrium * Normal right atrial size. Pericardium * There is no pericardial effusion present. Left Atrium * Severely dilated left atrium. Interatrial Septum * No evidence of PFO by color Doppler. IVC * Normal IVC dimensions and inspiratory collapse. Right Ventricle * RV size is not well visualized in the apical views. Function is normal by Lat S Mundo. Appears normal in function in subcostal view. Aorta * Normally sized aortic root. History Diabetes Hypercholesteremia History of CAD/PTCA Myocardial Infarction Coronary Artery Bypass Graft Measurements: BP: 169/ 84 2D Normal Values IVSd: 1.30 cm 0.6 - 1.0 cm LVIDd: 5.40 cm 3.7 - 5.6 cm LVPWd: 1.40 cm 0.6 - 1.1 cm LVIDs: 4.30 cm 1.5 - 3.6 cm AO: 2.40 cm < 4.0 cm LA: 4.30 cm 2.0 - 4.0cm %FS: 20.40 cm >25 % LVOT Diam: 2.00 cm LA volume: 97 Mitral Valve Peak Velocity 1.66 m/sec Mean Velocity:.97 m/sec Peak Grad:11.00 mmHg Mean Grad:5.00 mmHg Pressure Time:75.00 msec Valve Area:1.65 cm2 Peak E:1.46 m/sec Peak A:1.47 m/sec E/A Ratio:1 Peak E' Lat Mundo:6.63 cm/s Peak E' Med Mundo:3.7 cm/s E/E' Lat Ratio:22 E/E' Med Ratio:39.5 LVOT Peak Mundo:1.26 m/sec Mean Mundo:.85 m/sec Peak Grad:6.00 mmHg Mean Grad:3.00 mmHg Aortic Valve Peak Mundo:2.56 m/sec Mean Mundo:1.89 m/sec Peak Grad:26.00 mmHg Mean Grad:16.00 mmHg Valve Area:1.59 cm2 Tricuspid Valve TV Regurg Peak Grad: 37.00mmHg TV Regurg Peak Mundo: 3.04m/sec Updated by Farrah Lee on 09/10/2016 9:14:40 AM electronically signed on 09/10/2016 9:16:06 AM with status of Final Wall Motion Ferrer: 1=Normal, 2=Hypokinesis, 3=Akinesis, 4=Dyskinesis, 5=Aneurysmal, 6=Hyperkinetic, X=Not Visualized (Blank)=Missing
--- NOTE | 2016-09-10 09:51 | Nephrology Progress Note ---
Date of Encounter: 09/10/16 Time of Encounter: 09:05 - Assessment and Plan (1) ESRD (end stage renal disease) Current Visit: Yes Status: Acute ESRD in setting of DM, HTN. Significant proteinuria. Patient unreliable if wanting dialysis with given prior Hospice status and family involvement and their decision to have patient brought to hospital. Currently does not need immediate dialysis. Will transfuse one unit PRBC's. Nursing staff currently trying to reach family member/next of kin for further direction. Subjective Interval history: Alert, Pleasant. Knows self and where abouts. Discussed declined renal fct, potential need for dialysis and low Hgb and need for blood transfusion. Vague comments/commitment regarding medical decision making. Known to practice. Per office notes attempted to send to dialysis education, though patient declined dialysis. A family member contacted office wanting to speak to myself, when returned call that day at given phone number there was no answer and no voice mail. Later contact notes state patient assigned to hospice and further office visits were stopped. Objective - Vital Signs Vital signs: Vital Signs Temp Pulse Resp BP Pulse Ox 09/10/16 07:17 98.6 F 80 18 177/75 98 09/10/16 04:00 98.5 F 80 16 116/66 97 09/09/16 23:54 98.4 F 80 16 160/71 96 09/09/16 20:08 98.9 F 75 16 173/77 95 09/09/16 16:45 98.3 F 81 16 170/75 98 09/09/16 11:52 98.3 F 74 17 145/66 97 Intake and Output 09/09/16 09/10/16 09/10/16 23:59 07:59 15:59 Intake Total 596 / 596 240 / 240 Output Total 1450 / 1450 1300 / 1300 Balance -854 / -854 -1060 / -1060 Intake: IV Fluids 96 / 96 Bumex 12 MG In Dextrose 5 96 / 96 % 48 ML @ 0.5 MG/HR 4 mls /hr IVC .Q24H VIKASH Rx#: [id number] Oral 500 / 500 240 / 240 Output: Urine 1300 / 1300 Catheter 1450 / 1450 Other: Meal Breakfast Percent of Meal Consumed 100% Weight 94.1 kg Blood Glucose* 119 118 Patient Weight 09/10/16 23:59 Weight 94.1 kg - General Appearance General appearance: Present: well-developed, well-nourished, appears started age EENT: Present: mucous membranes moist Neck: Present: no JVD, no carotid bruit Respiratory: Present: clear Cardiology: Present: regular rate, regular rhythm Additional Comments: generalized pitting edema Gastrointestinal: Present: normoactive bowel sounds, no tenderness Integumentary: Present: warm and dry Psychiatric: Present: mood/affect appropriate, cooperative - Lab 09/10/16 03:25 09/10/16 03:25 Most recent lab results Calcium 8.6 mg/dL (8.6-10.8) 09/10/16 03:25 Phosphorus 5.5 mg/dL (2.3-4.7) H 09/09/16 05:58 Magnesium 1.7 mg/dL (1.6-2.6) 09/09/16 05:58 Urine Creatinine 22 mg/dL 09/09/16 03:15 Urine Total Protein 115 mg/dL (1-14) H 09/09/16 03:15 - VTE Documentation of Mechanical Device: Graduated compression elastic hosiery Consult Discharge Plan - Plan Referrals: NO,PCP [Primary Care Provider] - ([facility])
--- NOTE | 2016-09-10 11:22 | Internal Med Progress Note ---
<Harmeet Reese - Last Filed: 09/10/16 13:38> Date of Encounter: 09/10/16 Time of Encounter: 09:00 - Assessment and plan (1) Anemia Current Visit: Yes Status: Acute Assessment and plan: Patient is symptomatically stable. Likely secondary to CKD. Current hgb 6.2, she would benefit from a transfusion as her hgb continues to diminish. Will have to contact family for consent. Plan: - POA consent for transfusion required for transfusion and plans of care. Qualifiers: Anemia type: unspecified type Qualified Code(s): D64.9 - Anemia, unspecified (2) Dementia arising in the senium and presenium Current Visit: Yes Status: Chronic Assessment and plan: Patient has hx of dementia and is currently only AOx1. She has poor memory of medical conditions and treatment plans. Plan: - Continue current medications - Identify a POA. (3) Type 2 diabetes mellitus Current Visit: Yes Status: Chronic Assessment and plan: Patient is a known type 2 DM presenting with hyperglycemia. Home medications include Lantus 5units sq. Plan: - Continue inpatient sliding scale insulin medium dose. - Levemir 5units sq HS - ACHS glucose checks. Qualifiers: Diabetes mellitus complication status: with unspecified complications Diabetes mellitus technician terminal and repeater insulin use: unspecified technician terminal and repeater insulin use status Qualified Code(s): E11.8 - Type 2 diabetes mellitus with unspecified complications (4) HTN (hypertension) Current Visit: Yes Status: Chronic Assessment and plan: Ms. Montoya 75-year-old female known history of hypertension on amlodipine 10 mg by mouth daily furosemide 40 mg by mouth daily and labetalol 200 mg by mouth twice a day and spironolactone 25 mg by mouth daily. - She is currently hypotensive likely secondary to volume overload. - Nephrology is following at this time. Mrs. Montoya is well-known to Dr. Turner's nephrology office. Plan: - Patient's spironolactone was discontinued due to a low creatinine clearance. - Continued on calcium channel guzman and beta guzman - We will schedule hydralazine 10 mg every 6 hours Qualifiers: Hypertension type: unspecified secondary hypertension Qualified Code(s): I15.9 - Secondary hypertension, unspecified; I15 - Secondary hypertension (5) HLD (hyperlipidemia) Current Visit: Yes Status: Chronic Assessment and plan: Continue patient's home medications simvastatin 10 mg by mouth daily Qualifiers: Hyperlipidemia type: mixed hyperlipidemia Qualified Code(s): E78.2 - Mixed hyperlipidemia (6) CAD (coronary artery disease), [place] coronary artery Current Visit: Yes Status: Chronic Assessment and plan: Known history of coronary artery disease with history of CABG and VA. Plan: - Continue beta guzman, statin, aspirin - Patient is not a candidate for TONY inhibitor as she has end-stage renal disease. - Continue court monitor. Qualifiers: [place] vs. transplanted heart: [place] heart Associated angina: without angina Qualified Code(s): I25.10 - Atherosclerotic heart disease of [place] coronary artery without angina pectoris (7) Hx of CABG Current Visit: Yes Status: Chronic Assessment and plan: Stable. (8) ESRD (end stage renal disease) Current Visit: Yes Status: Acute Assessment and plan: Patient is a creatinine of 5.29 and a GFR of 10 review of her medical records demonstrates a significant increase in her creatinine in August 2015 to present. She is seeing Dr. Turner's nephrology group but has been lost to follow- up. Suspect end-stage renal failure secondary to uncontrolled diabetes and hypertension, urinalysis demonstrates urine creatinine 22, urine microalbumin of 659, microalbumin creatinine ratio of 2995, protein to creatinine ratio 5.23 , urine total protein 115. -Nephrology has seen this patient since admission. Plan: - Continue to avoid nephrotoxic medications and renally dose antibiotics - Appreciate nephrology recommendations - It will be important to have a discussion regarding the future hemodialysis with the patient and POA. (9) UTI (urinary tract infection) Current Visit: Yes Status: Acute Assessment and plan: Urinalysis collected at the time of admission demonstrates urinary tract infection with large leukocytosis and nitrates. Plan: - We will start Levaquin as she has an allergey penicillins Qualifiers: Urinary tract infection type: acute cystitis Hematuria presence: without hematuria Qualified Code(s): N30.00 - Acute cystitis without hematuria (10) Hyperphosphatemia Current Visit: Yes Status: Acute Assessment and plan: Phosphorus level 5.5 on 09/09/2016, likely secondary to end-stage renal disease. - Patient will likely benefit from phosphate binder, we will appreciate nephrology's recommendations. (11) Hyperkalemia, diminished renal excretion Current Visit: Yes Status: Acute Assessment and plan: Patient has elevated potassium level secondary to end-stage renal disease and poor creatinine clearance. Potassium is 5.1 which is improved from admission likely secondary to initiating lactulose 20 g by mouth daily. Plan: - We will continue to monitor and avoid potassium-rich diet. - If potassium continues to increase patient would benefit from calcium gluconate and possibly Kayexalate. - Subjective Interval history: Ms. Montoya has been seen and evaluated at patient bedside this am, She is resting comfortably and complains of pain in both her legs. She is AOx1 and does not remember recent conversations. She denies any knowledge of discussion of dialysis or anemia. She is agreeable to a blood transfusion if necessary. The concern is her cognitive ability to understand and consent for a transfusion. - Constitutional Vitals: Temp Pulse Resp BP Pulse Ox 98.7 F 78 18 171/65 97 09/10/16 11:01 09/10/16 11:01 09/10/16 11:01 09/10/16 11:01 09/10/16 11:01 General appearance: Present: cooperative, A&O X 1, morbidly obese, answers questions appropriately - Head Head exam: Present: atraumatic, normocephalic - Eye Eye exam: Present: PERRL, conjuntiva pink, sclera anicteric Pupils: Present: PERRL - ENT ENT exam: Present: mucous membranes moist - Neck Neck exam general surgery: Present: supple, trachea midline. Absent: lymphadenopathy - Respiratory Respiratory exam: Present: CTAB. Absent: accessory muscle use, rales, rhonchi, wheezes - Cardiovascular Cardiovascular exam: Present: RRR, systolic murmur Additional comments: holosystolic murmur grade 3/6 ejection murmur. - GI/Abdominal GI/Abdominal exam: Present: normal bowel sounds, soft, no peritoneal signs. Absent: distended, tenderness - Extremities Exam Extremities exam: Present: warm Additional comments: Bilateral LE edema 2+ b/l, tender to palpation. - Neurological Exam Neurological exam: Present: alert, altered - Psychiatric Psychiatric exam: Present: normal affect, normal mood Internal Medicine: Result - Labs CBC & Chem 7: 09/10/16 03:25 09/10/16 03:25 Labs: Short CBC 09/10/16 Range/Units 03:25 WBC 7.5 (4.3-11.1) K/mcL Hgb 6.2 L (11.5-15.4) g/dL Hct 19.4 L (35.3-44.9) % Plt Count 224 (140-400) K/mcL Neutrophils # 5.0 (1.6-8.9) K/mcL BMP 09/10/16 03:25 Sodium 136 Potassium 5.1 H Chloride 108 Carbon Dioxide 19 BUN 59 H Creatinine 5.29 H Glucose 196 H Calcium 8.6 - ABG Interpretation ABG results: PT/INR, D-dimer PT 11.9 Seconds (9.4-12.1) 09/08/16 16:37 - VTE Documentation of Mechanical Device: Graduated compression elastic hosiery Consult Discharge Plan - Plan Referrals: NO,PCP [Primary Care Provider] - ([facility]) <González Posada - Last Filed: 09/10/16 17:52> Date of Encounter: 09/10/16 - Assessment and plan (1) CKD (chronic kidney disease) stage 5, GFR less than 15 ml/min Current Visit: Yes Status: Chronic (2) HTN (hypertension) Current Visit: Yes Status: Chronic Qualifiers: Hypertension type: unspecified secondary hypertension Qualified Code(s): I15.9 - Secondary hypertension, unspecified; I15 - Secondary hypertension (3) Anemia Current Visit: Yes Status: Acute Qualifiers: Anemia type: unspecified type Qualified Code(s): D64.9 - Anemia, unspecified - Constitutional Vitals: Temp Pulse Resp BP Pulse Ox 98.8 F 82 18 174/67 96 09/10/16 16:08 09/10/16 16:08 09/10/16 16:08 09/10/16 16:08 09/10/16 16:08 Internal Medicine: Result - Labs CBC & Chem 7: 09/10/16 03:25 09/10/16 03:25 Labs: Short CBC 09/10/16 Range/Units 03:25 WBC 7.5 (4.3-11.1) K/mcL Hgb 6.2 L (11.5-15.4) g/dL Hct 19.4 L (35.3-44.9) % Plt Count 224 (140-400) K/mcL Neutrophils # 5.0 (1.6-8.9) K/mcL BMP 09/10/16 03:25 Sodium 136 Potassium 5.1 H Chloride 108 Carbon Dioxide 19 BUN 59 H Creatinine 5.29 H Glucose 196 H Calcium 8.6 - ABG Interpretation ABG results: PT/INR, D-dimer PT 11.9 Seconds (9.4-12.1) 09/08/16 16:37 - Impressions Impressions Retroperitoneum Ultrasound 09/10/16 14:00 IMPRESSION: No evidence of hydronephrosis. Nonvisualization of bladder. D/ / Juan Francisco Palomo MD / Juan Francisco Palomo MD Interpreting Provider: Juan Francisco Palomo MD - Attending Attestation I examined this patient and my medical decision-making was reviewed with the CRITICAL CARE NURSE PRACTITIONER/PA/Advanced Practice Nurse/Resident Physician. I agree with the documented findings, disposition and treatment plan as described except to the extent set forth below. Patient seen and examined during MDR. Alert, oriented in place and person. Answers questions, aware of kidney problems. Follow nephrology input. Teddy added.
[2016-09-10] MEDS: 0.9 % Sodium Chloride 250 ML IVC SCH (12:17)
[2016-09-10] MEDS ORDERED: Levofloxacin 750 MG/150 ML 750 MG/150 ML BAG IVPB SCH (15:00)
[2016-09-10] MEDS: hydrALAZINE 10 MG TABLET PO SCH (17:02)
[2016-09-10] MEDS: Insulin DETEMIR 100 UNIT/ML X5UNITS SQ SCH (20:29)
--- NOTE | 2016-09-10 20:29 | Electrocardiograph Report ---
[address] [place], [place] [address] Test Date: 2016-09-08 Pat Name: Mayte Montoya Department: 103 Room: 2A Gender: F Network Program Manager: YUNG : 1940 Requested By: Vikas Smith Order Number: [id number] Reading MD: Lucian Wong MD Measurements Intervals [place] Rate: 72 P: 48 SC: 142 QRS: 44 QRSD: 83 T: 148 QT: 395 QTc: 419 Interpretive Statements SINUS RHYTHM LATERAL ISCHEMIA Electronically Signed On 09-10-2016 20:28:02 EDT by Lucian Wong MD
[2016-09-11] MEDS: hydrALAZINE 10 MG TABLET PO SCH ×4 (00:09→17:32)
[2016-09-11] MEDS: Bumetanide 12 MG in D5% in Water 48 ML IVC SCH (00:13)
[2016-09-11] MEDS: *HR* OxyCODONE Immed Rel 5 MG TABLET PO PRN ×2 (02:59→14:41)
[2016-09-11 04:47] LABS: Basophils % 0.2 %; Eosinophils # 0.3 K/mcL (0.0-0.6); Eosinophils % 3.5 %; Hematocrit 19.5 % (35.3-44.9); Hemoglobin 6.2 g/dL (11.5-15.4); Immature Granulocytes % 0.3 % (0-4); Lymphocytes # 1.2 K/mcL (0.6-4.6); Mean Corpuscular HGB Conc 31.8 g/dL (31.6-35.5); Mean Corpuscular Hemoglobin 28.6 pg (28.0-33.3); Mean Corpuscular Volume 89.9 fL (83.0-100.0); Mean Platelet Volume 8.6 fL (9.4-12.4); Monocytes # 0.9 K/mcL (0.0-1.3); Monocytes % 9.9 %; Neutrophils # 6.7 K/mcL (1.6-8.9); Platelet Count 219 K/mcL (140-400); Red Blood Count 2.17 M/mcL (3.82-4.97); Red Cell Distribution Width 14.5 % (11.5-14.5); Segmented Neutrophils % 73.1 %
[2016-09-11 04:59] LABS: Calcium 8.7 mg/dL (8.6-10.8); Potassium 4.6 mEq/L (3.5-4.5)
[2016-09-11] MEDS: *HR* Heparin 5,000 UNIT/ML VIAL SQ SCH ×2 (05:54→17:32)
[2016-09-11] MEDS: amLODIPine 5 MG TABLET PO SCH (08:07)
[2016-09-11] MEDS: Lactulose Oral Soln 20 GM/30 ML UDC PO SCH (08:07)
[2016-09-11] MEDS: Cholecalciferol (D-3) 1,000 UNIT TABLET PO SCH (08:07)
[2016-09-11] MEDS: Cyanocobalamin (B-12) 1,000 MCG TABLET PO SCH (08:07)
[2016-09-11] MEDS: Aspirin 81 MG TAB.CHEW PO SCH (08:09)
[2016-09-11] MEDS: Insulin LISPRO 300 UNITS/3 ML VIAL SQ SCH ×4 (08:09→20:17)
[2016-09-11] MEDS: 0.9 % Sodium Chloride 250 ML IVC SCH ×2 (08:10)
[2016-09-11] MEDS ORDERED: 0.9 % Sodium Chloride 500 ML IVC SCH (09:00)
--- NOTE | 2016-09-11 09:04 | Nephrology Progress Note ---
Date of Encounter: 09/11/16 Time of Encounter: 08:45 - Assessment and Plan (1) ESRD (end stage renal disease) Current Visit: Yes Status: Acute ESRD in setting of DM, HTN. Significant proteinuria. Patient unreliable if wanting dialysis with given prior Hospice status and family involvement and their decision to have patient brought to hospital. No legal guardian to sign consents. PRBC ordered for Hgb 6.2, not transfused due to consent issues. Currently does not need immediate dialysis. Staff currently trying to reach family member/next of kin for further direction. Subjective Interval history: Alert, Pleasant. Knows self and where abouts. Sitting up in cahir, eating breakfast. Nursing staff states unable to get contacted family to sign consent for PRBC, therefore not given. Obtaining legal guardianship in progress. Objective - Vital Signs Vital signs: Vital Signs Temp Pulse Resp BP Pulse Ox 09/11/16 07:37 99.0 F 85 16 155/64 94 09/11/16 04:11 98.8 F 84 16 180/65 97 09/10/16 23:38 99 F 86 18 175/68 97 09/10/16 23:35 98.3 F 80 16 92/51 99 09/10/16 20:28 99.1 F 90 18 167/73 98 Intake and Output 09/10/16 09/11/16 09/11/16 23:59 07:59 15:59 Intake Total 346 / 346 0 / 0 Output Total 950 / 1800 2500 / 2500 0 / 0 Balance -604 / -1454 -2500 / -2500 0 / 0 Intake: IV Fluids 346 / 346 0.9 % Sodium Chloride 250 250 / 250 ML @ 25 mls/hr IVC .Q10H VIKASH Rx#:[id number] Bumex 12 MG In Dextrose 5 96 / 96 % 48 ML @ 0.5 MG/HR 4 mls /hr IVC .Q24H VIKASH Rx#: [id number] Oral 0 / 0 Output: Urine 650 / 650 0 / 0 Catheter 950 / 950 1850 / 1850 Other: Stool Size Smear # Bowel Movement Diapers 1 Weight 94.8 kg Blood Glucose* 166 93 Patient Weight 09/11/16 23:59 Weight 94.8 kg - General Appearance General appearance: Present: well-developed, well-nourished, appears started age EENT: Present: mucous membranes moist Neck: Present: no JVD Respiratory: Present: clear Cardiology: Present: regular rate, regular rhythm Additional Comments: generalized edema, pitting LE Gastrointestinal: Present: normoactive bowel sounds, no tenderness Integumentary: Present: warm and dry Psychiatric: Present: mood/affect appropriate, cooperative - Lab 09/11/16 04:27 09/11/16 04:27 Most recent lab results Calcium 8.7 mg/dL (8.6-10.8) 09/11/16 04:27 Phosphorus 5.5 mg/dL (2.3-4.7) H 09/09/16 05:58 Magnesium 1.7 mg/dL (1.6-2.6) 09/09/16 05:58 Urine Creatinine 22 mg/dL 09/09/16 03:15 Urine Total Protein 115 mg/dL (1-14) H 09/09/16 03:15 - VTE Documentation of Mechanical Device: Graduated compression elastic hosiery Consult Discharge Plan - Plan Referrals: NO,PCP [Primary Care Provider] - ([facility])
--- NOTE | 2016-09-11 12:20 | Internal Med Progress Note ---
Date of Encounter: 09/11/16 Time of Encounter: 12:17 - Assessment and plan (1) Anasarca associated with disorder of kidney Current Visit: Yes Status: Acute Assessment and plan: Patient adequately diuressed with bumex, however, hospital is running out Will change to lasix 8mg IVP bid, and will assess for need for more Renal on board, appreciate recommendations (2) Anemia Current Visit: Yes Status: Acute Assessment and plan: Patient is symptomatically stable, however, she is bed bound and not mobile PT/OT is unable to assess her needs due to hb of 6 I agree with one unit RBCS as prdere by renal 2 physician consent will be used to transfuse When patient's hb is at least >7, I will assess her decisional capacity going forward Qualifiers: Anemia type: unspecified type Qualified Code(s): D64.9 - Anemia, unspecified (3) ESRD (end stage renal disease) Current Visit: Yes Status: Acute Assessment and plan: Patient is a creatinine of 5.29 and a GFR of 10 review of her medical records demonstrates a significant increase in her creatinine in August 2015 to present. She is seeing Dr. Turner's nephrology group but has been lost to follow- up. Suspect end-stage renal failure secondary to uncontrolled diabetes and hypertension, urinalysis demonstrates urine creatinine 22, urine microalbumin of 659, microalbumin creatinine ratio of 2995, protein to creatinine ratio 5.23 , urine total protein 115. - Continue to avoid nephrotoxic medications and renally dose antibiotics - Appreciate nephrology recommendations Patient has informed Dr. Saleh, Dr. Becerril dn Dr. Cook that she will like to pursue HD as an option, stan discuss after assessing her decisional capacity (4) Hyperkalemia, diminished renal excretion Current Visit: Yes Status: Acute Assessment and plan: Secondary to ESRD Monitor K. (5) Hyperphosphatemia Current Visit: Yes Status: Acute Assessment and plan: Phosphorus level 5.5 on 09/09/2016, likely secondary to end-stage renal disease. - Patient will likely benefit from phosphate binder, we will appreciate nephrology's recommendations. (6) UTI (urinary tract infection) Current Visit: Yes Status: Acute Assessment and plan: Change to rocephin, patient has received rocephin at this facility in the past without adverse reactions Qualifiers: Urinary tract infection type: acute cystitis Hematuria presence: without hematuria Qualified Code(s): N30.00 - Acute cystitis without hematuria (7) CAD (coronary artery disease), [place] coronary artery Current Visit: Yes Status: Chronic Assessment and plan: Stable, CAD s/p CABG, - Continue beta guzman, statin, aspirin - Patient is not a candidate for TONY inhibitor as she has end-stage renal disease. - Continue patient monitor. Qualifiers: [place] vs. transplanted heart: [place] heart Associated angina: without angina Qualified Code(s): I25.10 - Atherosclerotic heart disease of [place] coronary artery without angina pectoris (8) Dementia arising in the senium and presenium Current Visit: Yes Status: Chronic Assessment and plan: AOX2 today Continue home meds (9) HLD (hyperlipidemia) Current Visit: Yes Status: Chronic Assessment and plan: Continue patient's home medications simvastatin 10 mg by mouth daily Qualifiers: Hyperlipidemia type: mixed hyperlipidemia Qualified Code(s): E78.2 - Mixed hyperlipidemia (10) HTN (hypertension) Current Visit: Yes Status: Chronic Assessment and plan: Controlled, continue current meds Qualifiers: Hypertension type: unspecified secondary hypertension Qualified Code(s): I15.9 - Secondary hypertension, unspecified; I15 - Secondary hypertension (11) Type 2 diabetes mellitus Current Visit: Yes Status: Chronic Assessment and plan: Adjust insulin Monitor FS ADA diet Qualifiers: Diabetes mellitus complication status: with unspecified complications Diabetes mellitus care asst insulin use: unspecified care asst insulin use status Qualified Code(s): E11.8 - Type 2 diabetes mellitus with unspecified complications - Subjective Interval history: 75 Y/O F with Dementia, resident of SNF CKD V, Anemia of chronic disease, worse, DM Patient is seen at bedside this morning Initial encounter She has no new complains She is oriented X2, and able to answer questions appropriately, however, she is unable to state why she is here or what she is being managed for She has chronic anemia, Hb of 6 and I have discussed with her computational geneticist who agrees that the patient made adequate response to diuresis and needs to be transfused Renal CLAM SORTER has ordered RBCs and I agree with her recommendation to transfuse this patient with RBC as this will afford her better quality of life and will resolve her fatigue However, regarding patient's decisional capacity, I will assess her decisional capacity after she has been transfused and her HB is at least corrected, I will discuss with MING regarding guardianship and placement, apparently , patient has a son that is not involved in her care - Constitutional Vitals: Temp Pulse Resp BP Pulse Ox 99.0 F 85 16 155/64 94 09/11/16 07:37 09/11/16 07:37 09/11/16 07:37 09/11/16 07:37 09/11/16 07:37 General appearance: Present: cooperative, A&O X 2, obese, answers questions appropriately - Head Head exam: Present: atraumatic, normocephalic - Eye Eye exam: Present: PERRL, conjuntiva pink, sclera anicteric Pupils: Present: PERRL - Neck Neck exam general surgery: Present: supple, trachea midline. Absent: lymphadenopathy - Respiratory Respiratory exam: Present: CTAB. Absent: accessory muscle use, rales, rhonchi, wheezes - Cardiovascular Cardiovascular exam: Present: RRR, +S1, +S2. Absent: diastolic murmur, gallop, rubs, systolic murmur - GI/Abdominal GI/Abdominal exam: Present: normal bowel sounds, soft, no peritoneal signs. Absent: distended, tenderness - Extremities Exam Extremities exam: Present: warm, radial pulses palpable and symetrical. Absent : calf tenderness, cyanotic, pedal edema - Neurological Exam Neurological exam: Present: alert, CN II-XII intact, no focal deficits. Absent : oriented X3, pronater drift, facial droop, speech deficit - Skin Skin exam: Present: dry, intact Internal Medicine: Result - Labs CBC & Chem 7: 09/11/16 04:27 09/11/16 04:27 Labs: Short CBC 09/11/16 Range/Units 04:27 WBC 9.1 (4.3-11.1) K/mcL Hgb 6.2 L (11.5-15.4) g/dL Hct 19.5 L (35.3-44.9) % Plt Count 219 (140-400) K/mcL Neutrophils # 6.7 (1.6-8.9) K/mcL BMP 09/11/16 04:27 Sodium 138 Potassium 4.6 H Chloride 108 Carbon Dioxide 21 BUN 66 H Creatinine 5.22 H Glucose 74 Calcium 8.7 - ABG Interpretation ABG results: PT/INR, D-dimer PT 11.9 Seconds (9.4-12.1) 09/08/16 16:37 - VTE Documentation of Mechanical Device: Graduated compression elastic hosiery Consult Discharge Plan - Plan Referrals: NO,PCP [Primary Care Provider] - (Patient will follow up with PCP at [facility])
[2016-09-11] MEDS ORDERED: 0.9 % Sodium Chloride 250 ML ONE (16:54)
[2016-09-11] MEDS: Furosemide 40 MG/4 ML VIAL IVP SCH (20:16)
[2016-09-11] MEDS: Insulin DETEMIR 100 UNIT/ML X5UNITS SQ SCH (20:17)
[2016-09-12] MEDS: hydrALAZINE 10 MG TABLET PO SCH ×5 (00:44→23:49)
[2016-09-12] MEDS: *HR* Heparin 5,000 UNIT/ML VIAL SQ SCH ×2 (06:26→17:27)
[2016-09-12] MEDS: Insulin LISPRO 300 UNITS/3 ML VIAL SQ SCH ×4 (08:38→21:33)
[2016-09-12] MEDS: amLODIPine 5 MG TABLET PO SCH (08:39)
[2016-09-12] MEDS: Cyanocobalamin (B-12) 1,000 MCG TABLET PO SCH (08:39)
[2016-09-12] MEDS: Cholecalciferol (D-3) 1,000 UNIT TABLET PO SCH (08:39)
[2016-09-12] MEDS: Aspirin 81 MG TAB.CHEW PO SCH (08:39)
[2016-09-12] MEDS: Lactulose Oral Soln 20 GM/30 ML UDC PO SCH (08:40)
[2016-09-12] MEDS: Furosemide 40 MG/4 ML VIAL IVP SCH ×2 (08:40→17:27)
[2016-09-12 08:43] LABS: Basophils % 0.3 %; Eosinophils # 0.4 K/mcL (0.0-0.6); Eosinophils % 3.7 %; Hematocrit 22.8 % (35.3-44.9); Hemoglobin 7.3 g/dL (11.5-15.4); Immature Granulocytes % 0.6 % (0-4); Immature Platelets 1.2 % (1.1-6.1); Lymphocytes # 1.4 K/mcL (0.6-4.6); Lymphocytes % 14.8 %; Mean Corpuscular Hemoglobin 28.3 pg (28.0-33.3); Mean Corpuscular Volume 88.4 fL (83.0-100.0); Mean Platelet Volume 9.2 fL (9.4-12.4); Monocytes # 1.1 K/mcL (0.0-1.3); Monocytes % 11.9 %; Neutrophils # 6.6 K/mcL (1.6-8.9); Platelet Count 255 K/mcL (140-400); Red Blood Count 2.58 M/mcL (3.82-4.97); Red Cell Distribution Width 14.9 % (11.5-14.5); Segmented Neutrophils % 68.7 %
[2016-09-12 08:56] LABS: Calcium 9.1 mg/dL (8.6-10.8); Potassium 4.4 mEq/L (3.5-4.5)
--- NOTE | 2016-09-12 09:23 | Internal Med Progress Note ---
Date of Encounter: 09/12/16 Time of Encounter: 09:13 - Assessment and plan (1) Anasarca associated with disorder of kidney Current Visit: Yes Status: Acute Assessment and plan: Continue lasix 80mg bid Monitor I/O Renal following, appreciate recommendations (2) Anemia Current Visit: Yes Status: Acute Assessment and plan: Anemia of chronic disease, acute on chronic s/p one unit RBC Hb today 7.3 Continue to monitor Renal on board, patient may benefit from erythropoietin Continue to monitor Qualifiers: Anemia type: unspecified type Qualified Code(s): D64.9 - Anemia, unspecified (3) ESRD (end stage renal disease) Current Visit: Yes Status: Acute Assessment and plan: Patient is a creatinine of 5.29 and a GFR of 10 review of her medical records demonstrates a significant increase in her creatinine in August 2015 to present. Patient has no decisional capacity She has family who is unable to state what her preferences were prior to worsening of her dementia Will await POA papers and pursue legal guardianship simultaneously Electrolytes are stable for now No need for emergent hemodialysis at this time (4) Hyperkalemia, diminished renal excretion Current Visit: Yes Status: Acute Assessment and plan: Secondary to ESRD Monitor K. (5) Hyperphosphatemia Current Visit: Yes Status: Acute Assessment and plan: Secondary to kidney disease Monitor PO4 Renal diet Start PO4 binders (6) UTI (urinary tract infection) Current Visit: Yes Status: Acute Assessment and plan: Urine culture with lactobacillus species Continue Rocephin Qualifiers: Urinary tract infection type: acute cystitis Hematuria presence: without hematuria Qualified Code(s): N30.00 - Acute cystitis without hematuria (7) CAD (coronary artery disease), [place] coronary artery Current Visit: Yes Status: Chronic Assessment and plan: Stable, CAD s/p CABG, - Continue beta guzman, statin, aspirin - Patient is not a candidate for TONY inhibitor as she has end-stage renal disease. - Continue fiber heel piece shaper. Qualifiers: [place] vs. transplanted heart: [place] heart Associated angina: without angina Qualified Code(s): I25.10 - Atherosclerotic heart disease of [place] coronary artery without angina pectoris (8) Dementia arising in the senium and presenium Current Visit: Yes Status: Chronic Assessment and plan: AOX2 today Continue home meds (9) HLD (hyperlipidemia) Current Visit: Yes Status: Chronic Assessment and plan: Continue patient's home medications simvastatin 10 mg by mouth daily Qualifiers: Hyperlipidemia type: mixed hyperlipidemia Qualified Code(s): E78.2 - Mixed hyperlipidemia (10) HTN (hypertension) Current Visit: Yes Status: Chronic Assessment and plan: Controlled, continue current meds Qualifiers: Hypertension type: unspecified secondary hypertension Qualified Code(s): I15.9 - Secondary hypertension, unspecified; I15 - Secondary hypertension (11) Type 2 diabetes mellitus Current Visit: Yes Status: Chronic Assessment and plan: A1C 4.8 Monitor FS ADA diet Qualifiers: Diabetes mellitus complication status: with unspecified complications Diabetes mellitus adjunct faculty for medical terminology insulin use: unspecified group home insulin use status Qualified Code(s): E11.8 - Type 2 diabetes mellitus with unspecified complications - Subjective Interval history: 75 year old female significant medical history type II DM, CAD/CABG/AMI, osteoarthritis, osteoporosis/vitamin D deficiency, nonoliguric CKD stage V, dementia unspecified, hypertension, dyslipidemia, urinary retention/rec UTIs, nephrolithiasis, obesity, nonsmoker She is admitted and being managed for anasarca and worsening anemia of chronic disease. The patient also has nephrotic range proteinuria, and fluid overload. Patient was DNR CC prior to admission, however she was changed to DNR CCA upon admission. The patient has dementia and evaluation yesterday and this morning revealed that the patient has no decision making ability. Presenting hemoglobin was 6.2, she received 1 unit of RBCs yesterday with improvement 7.3. She has been adequately diuressed with diuretics, and improved urinary output. Pedal edema has also improved. evaluated at bedside this morning, with RN and two nephews, patient was having breakfast and alert at that time Again, she is oriented to place and person and was able to recognize her nephews by name. Juan states he used to be her POA till 2013 when she was moved to an assised living facility, he is not sure if he is still her POA as patient made many decisions regarding her health without their knowledge Juan states his two aunties/patient's nieces are available and they will work together to find if patient still has legal papers Patient remains confused occasionally and is unable to understand her diagnosis , risks and benefits of treatment or procedure, indications and options of care , she is unable to repeat in her own words the information i disclosed to her regarding her kidney disease and possible need for dialysis, she is unable to state and make a decision , and is unable to appreciate the information. She is unable to assess comparative reasoning and is unable to compare information and consequences of her choices, she therefore has no decisional capacity. - Constitutional Vitals: Temp Pulse Resp BP Pulse Ox 99.2 F 83 18 171/64 96 09/12/16 06:48 09/12/16 06:48 09/12/16 06:48 09/12/16 06:48 09/12/16 06:48 General appearance: Present: cooperative, A&O X 2, pleasant, obese. Absent: answers questions appropriately - Head Head exam: Present: atraumatic - Eye Eye exam: Present: PERRL, conjuntiva pink, sclera anicteric - ENT ENT exam: Present: mucous membranes moist - Neck Neck exam general surgery: Present: normal inspection - Respiratory Respiratory exam: Present: CTAB Additional comments: mid chest scar - Cardiovascular Cardiovascular exam: Present: RRR, +S1, +S2, systolic murmur. Absent: diastolic murmur, gallop, rubs - GI/Abdominal GI/Abdominal exam: Present: normal bowel sounds, soft, no peritoneal signs. Absent: distended, tenderness - Extremities Exam Extremities exam: Present: pedal edema (improved) - Neurological Exam Neurological exam: Present: alert, CN II-XII intact, no focal deficits. Absent : oriented X3, pronater drift, facial droop, speech deficit - Skin Skin exam: Present: dry, intact Internal Medicine: Result - Labs CBC & Chem 7: 09/12/16 08:10 09/12/16 08:10 Labs: Short CBC 09/12/16 Range/Units 08:10 WBC 9.6 (4.3-11.1) K/mcL Hgb 7.3 L (11.5-15.4) g/dL Hct 22.8 L (35.3-44.9) % Plt Count 255 (140-400) K/mcL Neutrophils # 6.6 (1.6-8.9) K/mcL BMP 09/12/16 08:10 Sodium 139 Potassium 4.4 Chloride 106 Carbon Dioxide 24 BUN 75 H Creatinine 5.61 H Glucose 87 Calcium 9.1 - ABG Interpretation ABG results: PT/INR, D-dimer PT 11.9 Seconds (9.4-12.1) 09/08/16 16:37 - VTE Documentation of Mechanical Device: Graduated compression elastic hosiery Consult Discharge Plan - Plan Referrals: NO,PCP [Primary Care Provider] - (Patient will follow [facility] with [facility] at [facility])
--- NOTE | 2016-09-12 09:36 | Nephrology Progress Note ---
Date of Encounter: 09/12/16 Time of Encounter: 09:20 - Assessment and Plan (1) ESRD (end stage renal disease) Current Visit: Yes Status: Acute ESRD in setting of DM, HTN. Significant proteinuria. Patient unreliable if wanting dialysis with given prior Hospice status and family involvement and their decision to have patient brought to hospital. No legal guardian to sign consents. PRBC given with two physician consent with consultation with Dr. Turner for Hgb 6.2. Hgb today 7.3. Currently does not need immediate dialysis. Awaiting decisional capacity to be determined to establish HD direction. Subjective Interval history: Alert, Pleasant. Knows self and where abouts. Sitting up in chair, eating breakfast. Objective - Vital Signs Vital signs: Vital Signs Temp Pulse Resp BP Pulse Ox 09/12/16 06:48 99.2 F 83 18 171/64 96 09/12/16 04:35 99 F 80 18 165/74 95 09/11/16 23:28 99.6 F 81 16 143/67 95 09/11/16 20:32 98.3 F 71 16 187/83 98 09/11/16 20:16 98.3 F 71 16 187/83 98 09/11/16 19:13 98 F 80 16 166/70 97 09/11/16 17:20 97.7 F 80 14 164/76 96 09/11/16 16:58 98.3 F 75 14 138/72 09/11/16 15:44 98.6 F 75 16 152/74 99 09/11/16 12:32 97.4 F L 71 18 148/69 99 Intake and Output 09/11/16 09/12/16 09/12/16 23:59 07:59 15:59 Intake Total 350 / 350 Output Total 1999 Balance 350 / 350 -1999 Intake: Blood Product 350 / 350 Rbcs Leuko Poor As-1 350 / 350 Unit [id number] Output: Catheter 1999 Other: Meal Dinner Percent of Meal Consumed 10% Weight 88.5 kg Blood Glucose* 143 100 Patient Weight 09/12/16 23:59 Weight 88.5 kg - General Appearance General appearance: Present: well-developed, well-nourished, appears started age EENT: Present: mucous membranes moist Neck: Present: no JVD Respiratory: Present: clear Cardiology: Present: regular rate, regular rhythm Additional Comments: 1-2+ LE pitting edema Gastrointestinal: Present: normoactive bowel sounds, no tenderness Integumentary: Present: warm and dry Psychiatric: Present: mood/affect appropriate, cooperative - Lab 09/12/16 08:10 09/12/16 08:10 Most recent lab results Calcium 9.1 mg/dL (8.6-10.8) 09/12/16 08:10 Phosphorus 5.5 mg/dL (2.3-4.7) H 09/09/16 05:58 Magnesium 1.7 mg/dL (1.6-2.6) 09/09/16 05:58 Urine Creatinine 22 mg/dL 09/09/16 03:15 Urine Total Protein 115 mg/dL (1-14) H 09/09/16 03:15 - VTE Documentation of Mechanical Device: Graduated compression elastic hosiery Consult Discharge Plan - Plan Referrals: NO,PCP [Primary Care Provider] - (Patient will follow up with PCP at [facility])
[2016-09-12] MEDS: Insulin DETEMIR 100 UNIT/ML X5UNITS SQ SCH (21:41)
[2016-09-13 05:33] LABS: Basophils % 0.3 %; Eosinophils # 0.4 K/mcL (0.0-0.6); Eosinophils % 4.1 %; Hematocrit 20.9 % (35.3-44.9); Hemoglobin 6.9 g/dL (11.5-15.4); Immature Granulocytes % 0.3 % (0-4); Lymphocytes # 1.5 K/mcL (0.6-4.6); Lymphocytes % 16.4 %; Mean Corpuscular Hemoglobin 29.1 pg (28.0-33.3); Mean Corpuscular Volume 88.2 fL (83.0-100.0); Monocytes # 1.1 K/mcL (0.0-1.3); Monocytes % 11.9 %; Neutrophils # 6.3 K/mcL (1.6-8.9); Platelet Count 208 K/mcL (140-400); Red Blood Count 2.37 M/mcL (3.82-4.97); Red Cell Distribution Width 14.6 % (11.5-14.5)
[2016-09-13 05:48] LABS: Calcium 8.6 mg/dL (8.6-10.8); Potassium 4.4 mEq/L (3.5-4.5)
[2016-09-13] MEDS: hydrALAZINE 10 MG TABLET PO SCH ×3 (05:49→17:50)
[2016-09-13] MEDS: *HR* Heparin 5,000 UNIT/ML VIAL SQ SCH ×2 (05:49→17:52)
[2016-09-13] MEDS: Furosemide 40 MG/4 ML VIAL IVP SCH ×2 (08:04→17:50)
[2016-09-13] MEDS: Insulin LISPRO 300 UNITS/3 ML VIAL SQ SCH ×4 (08:04→21:13)
[2016-09-13] MEDS: Cholecalciferol (D-3) 1,000 UNIT TABLET PO SCH (08:05)
[2016-09-13] MEDS: Lactulose Oral Soln 20 GM/30 ML UDC PO SCH (08:05)
[2016-09-13] MEDS: Cyanocobalamin (B-12) 1,000 MCG TABLET PO SCH (08:05)
[2016-09-13] MEDS: Aspirin 81 MG TAB.CHEW PO SCH (08:05)
[2016-09-13] MEDS: amLODIPine 5 MG TABLET PO SCH (08:05)
[2016-09-13 10:16] LABS: % Iron Saturation 11 % (15-50); Iron 32 mcg/dL (50-170); Transferrin 201 mg/dL (180-382)
[2016-09-13] MEDS ORDERED: 0.9 % Sodium Chloride 250 ML ONE (10:17)
--- NOTE | 2016-09-13 10:30 | Internal Med Progress Note ---
Date of Encounter: 09/13/16 Time of Encounter: 10:25 - Assessment and plan (1) Anasarca associated with disorder of kidney Current Visit: Yes Status: Acute Assessment and plan: Patient has made significant improvement with fluid balance -12L Continue lasix 80mg bid Monitor I/O Renal following, appreciate recommendations (2) Anemia Current Visit: Yes Status: Acute Assessment and plan: Anemia of chronic disease, acute on chronic s/p one unit RBC Hb today 6.9 Check FOBT, iron studies, vitamin B12, Folate levels Give 1 unit RBC Continue to monitor Renal on board, patient may benefit from erythropoietin Qualifiers: Anemia type: unspecified type Qualified Code(s): D64.9 - Anemia, unspecified (3) ESRD (end stage renal disease) Current Visit: Yes Status: Acute Assessment and plan: Patient is a creatinine of 5.29 and a GFR of 10 review of her medical records demonstrates a significant increase in her creatinine in August 2015 to present. Patient has no decisional capacity She has family who is unable to state what her preferences were prior to worsening of her dementia Will pursue legal guardianship simultaneously Electrolytes are stable for now No need for emergent hemodialysis at this time (4) Hyperkalemia, diminished renal excretion Current Visit: Yes Status: Acute Assessment and plan: Secondary to ESRD Monitor K. (5) Hyperphosphatemia Current Visit: Yes Status: Acute Assessment and plan: Secondary to kidney disease Monitor PO4 Renal diet Start PO4 binders (6) UTI (urinary tract infection) Current Visit: Yes Status: Acute Assessment and plan: Urine culture with lactobacillus species Continue Rocephin Qualifiers: Urinary tract infection type: acute cystitis Hematuria presence: without hematuria Qualified Code(s): N30.00 - Acute cystitis without hematuria (7) CAD (coronary artery disease), [place] coronary artery Current Visit: Yes Status: Chronic Assessment and plan: Stable, CAD s/p CABG, - Continue beta guzman, statin, aspirin - Patient is not a candidate for TONY inhibitor as she has end-stage renal disease. - Continue treasury associate. Qualifiers: [place] vs. transplanted heart: [place] heart Associated angina: without angina Qualified Code(s): I25.10 - Atherosclerotic heart disease of [place] coronary artery without angina pectoris (8) Dementia arising in the senium and presenium Current Visit: Yes Status: Chronic Assessment and plan: AOX2 today Continue home meds (9) HLD (hyperlipidemia) Current Visit: Yes Status: Chronic Assessment and plan: Continue patient's home medications simvastatin 10 mg by mouth daily Qualifiers: Hyperlipidemia type: mixed hyperlipidemia Qualified Code(s): E78.2 - Mixed hyperlipidemia (10) HTN (hypertension) Current Visit: Yes Status: Chronic Assessment and plan: Controlled, continue current meds Qualifiers: Hypertension type: unspecified secondary hypertension Qualified Code(s): I15.9 - Secondary hypertension, unspecified; I15 - Secondary hypertension (11) Type 2 diabetes mellitus Current Visit: Yes Status: Chronic Assessment and plan: A1C 4.8 Monitor FS ADA diet Qualifiers: Diabetes mellitus complication status: with unspecified complications Diabetes mellitus detention insulin use: unspecified detention insulin use status Qualified Code(s): E11.8 - Type 2 diabetes mellitus with unspecified complications - Subjective Interval history: 75 year old female significant medical history type II DM, CAD/CABG/AMI, osteoarthritis, osteoporosis/vitamin D deficiency, nonoliguric CKD stage V, dementia unspecified, hypertension, dyslipidemia, urinary retention/rec UTIs, nephrolithiasis, obesity, nonsmoker She is admitted and being managed for anasarca and worsening anemia of chronic disease. The patient also has nephrotic range proteinuria, and fluid overload. She has made remarkable improvement Her Hb again is low today <7, will give one unit RBC Luis Fernando check FOBT I/O -12L total since admission. Patient remains confused occasionally and is unable to understand her diagnosis , risks and benefits of treatment or procedure, indications and options of care , she is unable to repeat in her own words the information i disclosed to her regarding her kidney disease and possible need for dialysis, she is unable to state and make a decision , and is unable to appreciate the information. She is unable to assess comparative reasoning and is unable to compare information and consequences of her choices, she therefore has no decisional capacity. - Constitutional Vitals: Temp Pulse Resp BP Pulse Ox 98.9 F 78 16 145/69 97 09/13/16 10:22 09/13/16 10:22 09/13/16 10:22 09/13/16 10:09/13/16 10:22 General appearance: Present: cooperative, A&O X 2, pleasant, obese. Absent: answers questions appropriately - Head Head exam: Present: atraumatic, normocephalic - Eye Eye exam: Present: PERRL, conjuntiva pink, sclera anicteric Pupils: Present: PERRL - Neck Neck exam general surgery: Present: supple, trachea midline. Absent: lymphadenopathy - Respiratory Respiratory exam: Present: CTAB. Absent: accessory muscle use, rales, rhonchi, wheezes - Cardiovascular Cardiovascular exam: Present: RRR, +S1, +S2, systolic murmur. Absent: diastolic murmur, gallop, rubs - GI/Abdominal GI/Abdominal exam: Present: normal bowel sounds, soft, no peritoneal signs. Absent: distended, tenderness - Extremities Exam Extremities exam: Present: warm, radial pulses palpable and symetrical. Absent : calf tenderness, cyanotic, pedal edema - Neurological Exam Neurological exam: Present: alert, CN II-XII intact, oriented X3, no focal deficits. Absent: pronater drift, facial droop, speech deficit - Skin Skin exam: Present: dry, intact Internal Medicine: Result - Labs CBC & Chem 7: 09/13/16 05:15 09/13/16 05:15 Labs: Short CBC 09/13/16 Range/Units 05:15 WBC 9.4 (4.3-11.1) K/mcL Hgb 6.9 L (11.5-15.4) g/dL Hct 20.9 L (35.3-44.9) % Plt Count 208 (140-400) K/mcL Neutrophils # 6.3 (1.6-8.9) K/mcL BMP 09/13/16 05:15 Sodium 138 Potassium 4.4 Chloride 106 Carbon Dioxide 21 BUN 83 H Creatinine 5.62 H Glucose 112 H Calcium 8.6 - ABG Interpretation ABG results: PT/INR, D-dimer PT 11.9 Seconds (9.4-12.1) 09/08/16 16:37 - VTE Documentation of Mechanical Device: Graduated compression elastic hosiery Consult Discharge Plan - Plan Referrals: NO,PCP [Primary Care Provider] - (Patient will follow up with PCP at [facility])
[2016-09-13 10:52] LABS: Folate 4.1 ng/mL (7.0-31.4)
--- NOTE | 2016-09-13 11:25 | Nephrology Progress Note ---
Date of Encounter: 09/13/16 Time of Encounter: 10:55 - Assessment and Plan (1) ESRD (end stage renal disease) Current Visit: Yes Status: Acute ESRD in setting of DM, HTN. Significant proteinuria. Patient unreliable if wanting dialysis with given prior Hospice status and family involvement and their decision to have patient brought to hospital. No legal guardian to sign consents. PRBC given with two physician consent with consultation with Dr. Turner. Receiving additional PRBC today for Hgb 6.9. Will start Aranesp. Will give Fereheme today and tomorrow. Needs guiac stool check for possible cause of blood loss. Currently does not need immediate dialysis. Awaiting decisional capacity to be determined to establish HD direction. Subjective Interval history: Laying in bed. Has PRBC's infusing. Alert, Pleasant. Knows self and where abouts. Objective - Vital Signs Vital signs: Vital Signs Temp Pulse Resp BP Pulse Ox 09/13/16 10:38 99 F 75 16 149/71 98 09/13/16 10:22 98.9 F 78 16 145/69 97 09/13/16 08:01 98.9 F 80 18 161/64 94 09/13/16 04:37 99.6 F 80 18 166/57 95 09/13/16 00:46 99.2 F 79 18 166/68 95 09/12/16 20:00 98.1 F 80 18 180/71 96 09/12/16 15:20 98.2 F 69 18 152/62 96 Intake and Output 09/12/16 09/13/16 09/13/16 23:59 07:59 15:59 Intake Total 0 / 0 400 / 400 0 / 0 Output Total 1500 / 1500 900 / 900 Balance -1500 / -1500 -500 / -500 0 / 0 Intake: Oral 0 / 0 400 / 400 Blood Product 0 / 0 Rbcs Leuko Poor As-1 0 / 0 Unit [id number] Output: Urine 0 / 0 0 / 0 Catheter 1500 / 1500 900 / 900 Other: Weight 87.94 kg Blood Glucose* 196 145 Patient Weight 09/13/16 23:59 Weight 87.94 kg - General Appearance General appearance: Present: well-developed, well-nourished, appears started age EENT: Present: mucous membranes moist Neck: Present: no JVD Respiratory: Present: clear Cardiology: Present: regular rate, regular rhythm Additional Comments: 1-2+ pitting edema LE Gastrointestinal: Present: normoactive bowel sounds, no tenderness, no guarding Integumentary: Present: warm and dry Psychiatric: Present: mood/affect appropriate, cooperative - Lab 09/13/16 05:15 09/13/16 05:15 Most recent lab results Calcium 8.6 mg/dL (8.6-10.8) 09/13/16 05:15 Phosphorus 5.5 mg/dL (2.3-4.7) H 09/09/16 05:58 Magnesium 1.7 mg/dL (1.6-2.6) 09/09/16 05:58 Urine Creatinine 22 mg/dL 09/09/16 03:15 Urine Total Protein 115 mg/dL (1-14) H 09/09/16 03:15 - VTE Documentation of Mechanical Device: Graduated compression elastic hosiery Consult Discharge Plan - Plan Referrals: NO,PCP [Primary Care Provider] - (Patient will follow up with PCP at [facility])
[2016-09-13] MEDS ORDERED: Ferumoxytol 510 MG in 0.9 % Sodium Chloride 100 ML IVPB ONE (11:27)
[2016-09-13] MEDS: Darbepoetin 100 MCG/0.5 ML SYRINGE SQ SCH (12:20)
[2016-09-13] MEDS: Insulin DETEMIR 100 UNIT/ML X5UNITS SQ SCH (21:13)
[2016-09-14] MEDS: hydrALAZINE 10 MG TABLET PO SCH ×4 (00:25→17:24)
[2016-09-14 04:38] LABS: Basophils % 0.4 %; Eosinophils # 0.4 K/mcL (0.0-0.6); Hematocrit 25.9 % (35.3-44.9); Immature Granulocytes % 0.4 % (0-4); Lymphocytes # 1.6 K/mcL (0.6-4.6); Lymphocytes % 15.8 %; Mean Corpuscular HGB Conc 32.8 g/dL (31.6-35.5); Mean Corpuscular Hemoglobin 28.7 pg (28.0-33.3); Mean Corpuscular Volume 87.5 fL (83.0-100.0); Mean Platelet Volume 9.4 fL (9.4-12.4); Monocytes # 1.2 K/mcL (0.0-1.3); Neutrophils # 6.8 K/mcL (1.6-8.9); Platelet Count 257 K/mcL (140-400); Red Blood Count 2.96 M/mcL (3.82-4.97); Red Cell Distribution Width 14.7 % (11.5-14.5); Segmented Neutrophils % 67.4 %
[2016-09-14 04:41] LABS: Hemoglobin 8.5 g/dL (11.5-15.4)
[2016-09-14 05:01] LABS: Calcium 9.2 mg/dL (8.6-10.8); Potassium 4.4 mEq/L (3.5-4.5)
[2016-09-14] MEDS: *HR* Heparin 5,000 UNIT/ML VIAL SQ SCH ×2 (05:28→17:24)
[2016-09-14] MEDS: *HR* OxyCODONE Immed Rel 5 MG TABLET PO PRN (05:28)
[2016-09-14] MEDS: Cyanocobalamin (B-12) 1,000 MCG TABLET PO SCH (07:53)
[2016-09-14] MEDS: Aspirin 81 MG TAB.CHEW PO SCH (07:53)
[2016-09-14] MEDS: Furosemide 40 MG/4 ML VIAL IVP SCH ×2 (07:54→16:46)
[2016-09-14] MEDS: Lactulose Oral Soln 20 GM/30 ML UDC PO SCH (07:54)
[2016-09-14] MEDS: amLODIPine 5 MG TABLET PO SCH (07:54)
[2016-09-14] MEDS: Cholecalciferol (D-3) 1,000 UNIT TABLET PO SCH (07:54)
[2016-09-14] MEDS: Insulin LISPRO 300 UNITS/3 ML VIAL SQ SCH ×4 (08:00→22:35)
[2016-09-14] MEDS ORDERED: Ferumoxytol 510 MG in 0.9 % Sodium Chloride 100 ML IVPB ONE (08:20)
[2016-09-14] MEDS: Folic Acid 1 MG TABLET PO SCH (08:59)
--- NOTE | 2016-09-14 09:43 | Internal Med Progress Note ---
Date of Encounter: 09/14/16 Time of Encounter: 09:40 - Assessment and plan (1) Anasarca associated with disorder of kidney Current Visit: Yes Status: Acute Assessment and plan: Improved, continue lasix 80mg IV BID (2) Anemia Current Visit: Yes Status: Acute Assessment and plan: Anemia of chronic disease, acute on chronic s/p 2 RBCS Hb improved to 8 Folate , iron levels low, receiving iron replacement Continue Vit B12 po, add folate po Monitor heme Qualifiers: Anemia type: unspecified type Qualified Code(s): D64.9 - Anemia, unspecified (3) ESRD (end stage renal disease) Current Visit: Yes Status: Chronic Assessment and plan: Patient is a creatinine of 5.29 and a GFR of 10 review of her medical records demonstrates a significant increase in her creatinine in August 2015 to present. Patient has no decisional capacity Electrolytes are stable for now No need for emergent hemodialysis at this time However, given patient's decisional capacity and placement of her self to hospice prior to arrival here and family dysharmony, with no healthcare POA assigned by patient, patient will need legal guardianship established for consents for medical management including rehab placement going forward Ethics committee has recommended psychiatry input Psych has been consulted (4) Hyperkalemia, diminished renal excretion Current Visit: Yes Status: Acute Assessment and plan: Secondary to ESRD Monitor K. (5) Hyperphosphatemia Current Visit: Yes Status: Chronic Assessment and plan: Secondary to kidney disease Monitor PO4 Renal diet (6) UTI (urinary tract infection) Current Visit: Yes Status: Acute Assessment and plan: Urine culture with lactobacillus species Continue Rocephin, to complete 7 days Renal USS with no stones or hydronephrosis Qualifiers: Urinary tract infection type: acute cystitis Hematuria presence: without hematuria Qualified Code(s): N30.00 - Acute cystitis without hematuria (7) CAD (coronary artery disease), [place] coronary artery Current Visit: Yes Status: Chronic Assessment and plan: Stable, CAD s/p CABG, - Continue beta guzman, statin, aspirin - Patient is not a candidate for TONY inhibitor as she has end-stage renal disease. - Continue laborer pipelines. Qualifiers: [place] vs. transplanted heart: [place] heart Associated angina: without angina Qualified Code(s): I25.10 - Atherosclerotic heart disease of [place] coronary artery without angina pectoris (8) Dementia arising in the senium and presenium Current Visit: Yes Status: Chronic Assessment and plan: AOX2 today Continue home meds (9) HLD (hyperlipidemia) Current Visit: Yes Status: Chronic Assessment and plan: Continue patient's home medications simvastatin 10 mg by mouth daily Qualifiers: Hyperlipidemia type: mixed hyperlipidemia Qualified Code(s): E78.2 - Mixed hyperlipidemia (10) HTN (hypertension) Current Visit: Yes Status: Chronic Assessment and plan: Controlled, continue current meds Qualifiers: Hypertension type: unspecified secondary hypertension Qualified Code(s): I15.9 - Secondary hypertension, unspecified; I15 - Secondary hypertension (11) Type 2 diabetes mellitus Current Visit: Yes Status: Chronic Assessment and plan: A1C 4.8 Monitor FS ADA diet Qualifiers: Diabetes mellitus complication status: with unspecified complications Diabetes mellitus chcf insulin use: unspecified [place] insulin use status Qualified Code(s): E11.8 - Type 2 diabetes mellitus with unspecified complications (12) Folate deficiency Current Visit: Yes Status: Acute Assessment and plan: Add folate - Subjective Interval history: 75 year old female significant medical history type II DM, CAD/CABG/AMI, osteoarthritis, osteoporosis/vitamin D deficiency, nonoliguric CKD stage V, dementia unspecified, hypertension, dyslipidemia, urinary retention/rec UTIs, nephrolithiasis, obesity, nonsmoker She is admitted and being managed for anasarca and worsening anemia of chronic disease. The patient also has nephrotic range proteinuria, and fluid overload. Seen at bedside, having breakfast When I asked if she remembers our conversation with her niece last night , she states yes, "Ingrid is my niece", when asked what kind of quality their relationship is, she refuses to speak, when asked if she understads all that is going on, she sighs and continued to eat her food She however denies any new complains Hb today is 8.5, she is receiving IV iron , Iron studies reveal SAVANNA and Folate deficiency Her BP has also been uncontrolled, will increase labetalol - Constitutional Vitals: Temp Pulse Resp BP Pulse Ox 98.5 F 75 16 176/73 96 09/14/16 07:05 09/14/16 07:05 09/14/16 07:05 09/14/16 07:05 09/14/16 07:05 General appearance: Present: cooperative, A&O X 2, pleasant, obese. Absent: answers questions appropriately - Head Head exam: Present: atraumatic, normocephalic - Eye Eye exam: Present: PERRL, conjuntiva pink, sclera anicteric Pupils: Present: PERRL - Neck Neck exam general surgery: Present: supple, trachea midline. Absent: lymphadenopathy - Respiratory Respiratory exam: Present: CTAB. Absent: accessory muscle use, rales, rhonchi, wheezes - Cardiovascular Cardiovascular exam: Present: RRR, +S1, +S2. Absent: diastolic murmur, gallop, rubs, systolic murmur - GI/Abdominal GI/Abdominal exam: Present: normal bowel sounds, soft, no peritoneal signs. Absent: distended, tenderness - Extremities Exam Extremities exam: Present: warm, radial pulses palpable and symetrical. Absent : calf tenderness, cyanotic, pedal edema - Neurological Exam Neurological exam: Present: alert, no focal deficits, strengths equal and symetr throughout. Absent: oriented X3, pronater drift, facial droop, speech deficit - Skin Skin exam: Present: dry, intact Internal Medicine: Result - Labs CBC & Chem 7: 09/14/16 04:13 09/14/16 04:13 Labs: Short CBC 09/14/16 Range/Units 04:13 WBC 10.0 (4.3-11.1) K/mcL Hgb 8.5 L D (11.5-15.4) g/dL Hct 25.9 L (35.3-44.9) % Plt Count 257 (140-400) K/mcL Neutrophils # 6.8 (1.6-8.9) K/mcL BMP 09/14/16 04:13 Sodium 139 Potassium 4.4 Chloride 105 Carbon Dioxide 22 BUN 88 H Creatinine 5.63 H Glucose 80 Calcium 9.2 - ABG Interpretation ABG results: PT/INR, D-dimer PT 11.9 Seconds (9.4-12.1) 09/08/16 16:37 - VTE Documentation of Mechanical Device: Graduated compression elastic hosiery Consult Discharge Plan - Plan Referrals: NO,PCP [Primary Care Provider] - (Patient will follow up with PCP at [facility])
--- NOTE | 2016-09-14 10:19 | Nephrology Progress Note ---
Date of Encounter: 09/14/16 Time of Encounter: 10:10 - Assessment and Plan (1) ESRD (end stage renal disease) Current Visit: Yes Status: Acute ESRD in setting of DM, HTN. Significant proteinuria. Patient unreliable if wanting dialysis with given prior Hospice status and family involvement and their decision to have patient brought to hospital. No legal guardian to sign consents. PRBC's were given with two physician consent with consultation with Dr. Turner. Hgb 8.5. Aranesp started. Will give Fereheme today. Needs guiac stool check for possible cause of blood loss. Currently does not need immediate dialysis. Awaiting decisional capacity to be determined to establish HD direction. Subjective Interval history: Alert, Pleasant. Knows self and where abouts. Objective - Vital Signs Vital signs: Vital Signs Temp Pulse Resp BP Pulse Ox 09/14/16 07:05 98.5 F 75 16 176/73 96 09/14/16 04:20 98 F 80 18 173/75 96 09/13/16 20:20 98.9 F 81 17 169/78 96 09/13/16 13:22 98.5 F 76 20 129/75 98 09/13/16 10:38 99 F 75 16 149/71 98 09/13/16 10:22 98.9 F 78 16 145/69 97 Intake and Output 09/13/16 09/14/16 09/14/16 23:59 07:59 15:59 Intake Total 240 / 240 0 / 0 Output Total 950 / 950 1200 / 1200 975 / 975 Balance -710 / -710 -1200 / -1200 -975 / -975 Intake: Oral 240 / 240 0 / 0 Output: Catheter 950 / 950 1200 / 1200 975 / 975 Other: Meal Dinner Percent of Meal Consumed 20% Weight 86.1 kg Blood Glucose* 238 94 Patient Weight 09/14/16 23:59 Weight 86.1 kg - General Appearance General appearance: Present: well-developed, well-nourished, appears started age EENT: Present: mucous membranes moist Neck: Present: no JVD Respiratory: Present: clear Cardiology: Present: regular rate, regular rhythm Additional Comments: 1+ knees down Gastrointestinal: Present: normoactive bowel sounds, no tenderness Integumentary: Present: warm and dry Neurologic: Present: alert and oriented x3 Psychiatric: Present: mood/affect appropriate, cooperative - Lab 09/14/16 04:13 09/14/16 04:13 Most recent lab results Calcium 9.2 mg/dL (8.6-10.8) 09/14/16 04:13 Phosphorus 5.5 mg/dL (2.3-4.7) H 09/09/16 05:58 Magnesium 1.7 mg/dL (1.6-2.6) 09/09/16 05:58 Urine Creatinine 22 mg/dL 09/09/16 03:15 Urine Total Protein 115 mg/dL (1-14) H 09/09/16 03:15 - VTE Documentation of Mechanical Device: Graduated compression elastic hosiery Consult Discharge Plan - Plan Referrals: NO,PCP [Primary Care Provider] - (Patient will follow up with PCP at [facility])
[2016-09-14] MEDS: Insulin DETEMIR 100 UNIT/ML X5UNITS SQ SCH (22:31)
[2016-09-15] MEDS: hydrALAZINE 10 MG TABLET PO SCH ×3 (00:53→11:29)
[2016-09-15] MEDS ORDERED: 0.9 % Sodium Chloride 1,000 ML ONE (02:36)
[2016-09-15] MEDS: *HR* Heparin 5,000 UNIT/ML VIAL SQ SCH ×2 (06:19→17:09)
[2016-09-15] MEDS: Cholecalciferol (D-3) 1,000 UNIT TABLET PO SCH (08:49)
[2016-09-15] MEDS: Aspirin 81 MG TAB.CHEW PO SCH (08:49)
[2016-09-15] MEDS: Cyanocobalamin (B-12) 1,000 MCG TABLET PO SCH (08:49)
[2016-09-15] MEDS: Furosemide 40 MG/4 ML VIAL IVP SCH ×2 (08:50→16:55)
[2016-09-15] MEDS: Folic Acid 1 MG TABLET PO SCH (08:51)
[2016-09-15] MEDS: Lactulose Oral Soln 20 GM/30 ML UDC PO SCH (08:51)
[2016-09-15] MEDS: Insulin LISPRO 300 UNITS/3 ML VIAL SQ SCH ×4 (08:51→22:30)
[2016-09-15] MEDS: amLODIPine 5 MG TABLET PO SCH (08:52)
--- NOTE | 2016-09-15 11:40 | Nephrology Progress Note ---
Date of Encounter: 09/15/16 Time of Encounter: 11:36 - Assessment and Plan (1) CKD (chronic kidney disease) stage 5, GFR less than 15 ml/min Current Visit: Yes Status: Chronic Serum cr in the mid 5 range, nonoliguric. Peripheral edema is improving No acute indication for dialysis. cont Lasix 80 mg IV twice a day HTN, BP is high. Dose of labetalol was increased yesterday. Continue amlodipine, change hydralazine to 50 mg twice a day Anemia of chronic disease and iron deficiency. Continue Aranesp and folate Subjective Principal diagnosis: CKD Interval history: 75-year-old female with h/o HTN, DM type II, CAD s/p CABG, dementia Admitted with anasarca and anemia. Has CKD stage V with nephrotic range proteinuria. Pt does not have the capacity to make decisons, does not have a legal guardian, Ethics is involved Has received 2 units of packed RBC, iv iron and folate supplements were started. d/w nurse, stable over night. BP is elevated, urine output was 3.8 L yesterday. denies any c/o, taking PO. Objective - Vital Signs Vital signs: Vital Signs Temp Pulse Resp BP Pulse Ox 09/15/16 10:56 98.9 F 73 16 161/69 97 09/15/16 08:04 98.7 F 77 16 165/71 97 09/15/16 05:09 98.2 F 78 18 116/76 98 09/15/16 00:00 98.6 F 76 18 156/63 96 09/14/16 21:04 98.3 F 73 18 158/72 97 09/14/16 16:50 98.0 F 77 14 154/87 100 Intake and Output 09/14/16 09/15/16 09/15/16 23:59 07:59 15:59 Intake Total 580 / 580 360 / 360 Output Total 1200 / 1200 900 / 900 500 / 500 Balance -620 / -620 -900 / -900 -140 / -140 Intake: IV Fluids 100 / 100 Rocephin 1,000 MG In 100 / 100 Dextrose 5% (Minibag+) 100 ML 100 ML @ 200 mls/ hr IVPB Q24H [facility] Rx#: [id number] Oral 480 / 480 360 / 360 Output: Urine 0 / 0 Catheter 1200 / 1200 900 / 900 500 / 500 Other: Meal Dinner Breakfast Percent of Meal Consumed 40% 100% Weight 86.1 kg 86.1 kg Blood Glucose* 113 93 199 Patient Weight 09/15/16 23:59 Weight 86.1 kg - General Appearance Exam: CVS; s1s2 present, regular, no murmurs RESP; good air entry, clear to auscultation ABD; soft, NT, BS present, no organomegaly, no bruits EXT; 1# edema, DP pulses palpable. [employer]ATING [employer]; alert oriented to self and place - Lab 09/14/16 04:13 09/14/16 04:13 Most recent lab results Calcium 9.2 mg/dL (8.6-10.8) 09/14/16 04:13 Phosphorus 5.5 mg/dL (2.3-4.7) H 09/09/16 05:58 Magnesium 1.7 mg/dL (1.6-2.6) 09/09/16 05:58 Urine Creatinine 22 mg/dL 09/09/16 03:15 Urine Total Protein 115 mg/dL (1-14) H 09/09/16 03:15 - VTE Documentation of Mechanical Device: Graduated compression elastic hosiery Consult Discharge Plan - Plan Referrals: NO,PCP [Primary Care Provider] - (Patient will follow up with PCP at [facility])
--- NOTE | 2016-09-15 13:28 | Internal Med Progress Note ---
Date of Encounter: 09/15/16 Time of Encounter: 13:26 - Assessment and plan (1) Anasarca associated with disorder of kidney Current Visit: Yes Status: Acute Assessment and plan: Improved, continue lasix 80mg IV BID (2) Anemia Current Visit: Yes Status: Acute Assessment and plan: Anemia of chronic disease, acute on chronic s/p 2 RBCS Hb improved to 8 Folate , iron levels low, receiving iron replacement Continue Vit B12 po, add folate po Monitor heme Qualifiers: Anemia type: unspecified type Qualified Code(s): D64.9 - Anemia, unspecified (3) ESRD (end stage renal disease) Current Visit: Yes Status: Chronic Assessment and plan: Patient is a creatinine of 5.29 and a GFR of 10 review of her medical records demonstrates a significant increase in her creatinine in August 2015 to present. Patient has no decisional capacity Electrolytes are stable for now No need for emergent hemodialysis at this time However, given patient's decisional capacity and placement of her self to hospice prior to arrival here and family dysharmony, with no healthcare POA assigned by patient, patient will need legal guardianship established for consents for medical management including rehab placement going forward Ethics committee has recommended psychiatry input Psych has been consulted 09/14/16 Awaiting review (4) Hyperkalemia, diminished renal excretion Current Visit: Yes Status: Acute Assessment and plan: Secondary to ESRD Monitor K. (5) Hyperphosphatemia Current Visit: Yes Status: Chronic Assessment and plan: Secondary to kidney disease Monitor PO4 Renal diet (6) UTI (urinary tract infection) Current Visit: Yes Status: Acute Assessment and plan: Urine culture with lactobacillus species Continue Rocephin, to complete 7 days Renal USS with no stones or hydronephrosis Qualifiers: Urinary tract infection type: acute cystitis Hematuria presence: without hematuria Qualified Code(s): N30.00 - Acute cystitis without hematuria (7) CAD (coronary artery disease), [place] coronary artery Current Visit: Yes Status: Chronic Assessment and plan: Stable, CAD s/p CABG, - Continue beta guzman, statin, aspirin - Patient is not a candidate for TONY inhibitor as she has end-stage renal disease. 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 Qualifiers: [place] vs. transplanted heart: [place] heart Associated angina: without angina Qualified Code(s): I25.10 - Atherosclerotic heart disease of [place] coronary artery without angina pectoris (8) Dementia arising in the senium and presenium Current Visit: Yes Status: Chronic Assessment and plan: AOX2 today Continue home meds (9) HLD (hyperlipidemia) Current Visit: Yes Status: Chronic Assessment and plan: Continue patient's home medications simvastatin 10 mg by mouth daily Qualifiers: Hyperlipidemia type: mixed hyperlipidemia Qualified Code(s): E78.2 - Mixed hyperlipidemia (10) HTN (hypertension) Current Visit: Yes Status: Chronic Assessment and plan: UnControlled, increased labetalol and hydralazine continue current meds Qualifiers: Hypertension type: unspecified secondary hypertension Qualified Code(s): I15.9 - Secondary hypertension, unspecified; I15 - Secondary hypertension (11) Type 2 diabetes mellitus Current Visit: Yes Status: Chronic Assessment and plan: A1C 4.8 Monitor FS ADA diet Qualifiers: Diabetes mellitus complication status: with unspecified complications Diabetes mellitus laborer [employer] insulin use: unspecified assisted insulin use status Qualified Code(s): E11.8 - Type 2 diabetes mellitus with unspecified complications (12) Folate deficiency Current Visit: Yes Status: Acute Assessment and plan: Add folate - Subjective Interval history: 75 year old female significant medical history type II DM, CAD/CABG/AMI, osteoarthritis, osteoporosis/vitamin D deficiency, nonoliguric CKD stage V, dementia unspecified, hypertension, dyslipidemia, urinary retention/rec UTIs, nephrolithiasis, obesity, nonsmoker She is admitted and being managed for anasarca and worsening anemia of chronic disease. The patient also has nephrotic range proteinuria, and fluid overload. Seen at bedside, no new complains BP still uncontrolled, hydralazine has been increased Still awaiting psych eval - Constitutional Vitals: Temp Pulse Resp BP Pulse Ox 98.9 F 73 16 161/69 97 09/15/16 10:56 09/15/16 10:56 09/15/16 10:56 09/15/16 10:56 09/15/16 10:56 General appearance: Present: cooperative, A&O X 2, pleasant, obese. Absent: answers questions appropriately - Head Head exam: Present: atraumatic, normocephalic - Eye Eye exam: Present: PERRL, conjuntiva pink, sclera anicteric Pupils: Present: PERRL - Neck Neck exam general surgery: Present: supple, trachea midline. Absent: lymphadenopathy - Respiratory Respiratory exam: Present: CTAB. Absent: accessory muscle use, rales, rhonchi, wheezes - Cardiovascular Cardiovascular exam: Present: RRR, +S1, +S2. Absent: diastolic murmur, gallop, rubs, systolic murmur - GI/Abdominal GI/Abdominal exam: Present: normal bowel sounds, soft, no peritoneal signs. Absent: distended, tenderness - Extremities Exam Extremities exam: Present: pedal edema (trace edema bilaterally), warm, radial pulses palpable and symetrical. Absent: calf tenderness, cyanotic - Neurological Exam Neurological exam: Present: alert, CN II-XII intact, no focal deficits. Absent : oriented X3, pronater drift, facial droop, speech deficit - Skin Skin exam: Present: dry, intact Internal Medicine: Result - Labs CBC & Chem 7: 09/14/16 04:13 09/14/16 04:13 - ABG Interpretation ABG results: PT/INR, D-dimer PT 11.9 Seconds (9.4-12.1) 09/08/16 16:37 - VTE Documentation of Mechanical Device: Graduated compression elastic hosiery Consult Discharge Plan - Plan Referrals: NO,PCP [Primary Care Provider] - (Patient will follow up with PCP at [facility])
[2016-09-15] MEDS: hydrALAZINE 25 MG TABLET PO SCH (22:34)
[2016-09-15] MEDS: Insulin DETEMIR 100 UNIT/ML X5UNITS SQ SCH (22:34)
[2016-09-16 05:39] LABS: Basophils % 0.4 %; Eosinophils # 0.4 K/mcL (0.0-0.6); Eosinophils % 3.4 %; Hematocrit 26.1 % (35.3-44.9); Hemoglobin 8.6 g/dL (11.5-15.4); Immature Granulocytes % 0.5 % (0-4); Lymphocytes # 1.7 K/mcL (0.6-4.6); Lymphocytes % 16.6 %; Mean Corpuscular Hemoglobin 29.4 pg (28.0-33.3); Mean Corpuscular Volume 89.1 fL (83.0-100.0); Mean Platelet Volume 9.4 fL (9.4-12.4); Monocytes # 1.3 K/mcL (0.0-1.3); Monocytes % 12.7 %; Neutrophils # 6.9 K/mcL (1.6-8.9); Platelet Count 267 K/mcL (140-400); Red Blood Count 2.93 M/mcL (3.82-4.97); Red Cell Distribution Width 14.2 % (11.5-14.5); Segmented Neutrophils % 66.4 %
[2016-09-16 05:53] LABS: Calcium 9.2 mg/dL (8.6-10.8); Potassium 4.3 mEq/L (3.5-4.5)
[2016-09-16] MEDS: *HR* Heparin 5,000 UNIT/ML VIAL SQ SCH ×2 (06:01→17:09)
[2016-09-16] MEDS: Insulin LISPRO 300 UNITS/3 ML VIAL SQ SCH ×4 (09:19→21:30)
[2016-09-16] MEDS: Cyanocobalamin (B-12) 1,000 MCG TABLET PO SCH (09:25)
[2016-09-16] MEDS: Lactulose Oral Soln 20 GM/30 ML UDC PO SCH (09:25)
[2016-09-16] MEDS: hydrALAZINE 25 MG TABLET PO SCH ×2 (09:25→20:56)
[2016-09-16] MEDS: Furosemide 40 MG/4 ML VIAL IVP SCH (09:25)
[2016-09-16] MEDS: Aspirin 81 MG TAB.CHEW PO SCH (09:26)
[2016-09-16] MEDS: Cholecalciferol (D-3) 1,000 UNIT TABLET PO SCH (09:26)
[2016-09-16] MEDS: Folic Acid 1 MG TABLET PO SCH (09:26)
[2016-09-16] MEDS: amLODIPine 5 MG TABLET PO SCH (09:36)
--- NOTE | 2016-09-16 09:36 | Consult Note ---
Date of Encounter: 09/15/16 Time of Encounter: 14:00 Assessment & Recommendation (1) Uncomplicated senile dementia Current visit: Yes Status: Acute Assessment & Recommendation: Recommend: 1. Neuropsychiatric evaluation to determine the level of dementia 2. Medication trials can be considered to improve cognitive functioning 3. Documentation of behavioral changes and safety concern is necessary to support guardianship application 4. Collaboration between the treatment team including clinical social work aide and family will help planning safe discharge and placement. Thank you for the consultation and please address any questions. History of Present Illness Patient: new to practice Requesting Physician: Stef Bello MD Reason for consult: Guardianship History of present illness: Ms. Montoya is a 75 year old female admitted to the hospital for treatment of multiple and complex medical problems including chronic kidney disease, ESRD, anemia, hypertension, diabetes diabetes, UTI, chronic artery disease and hyperlipidemia hypokalemia and hyperphosphatemia. On the records dementia nonspecific was listed on the problem list. no details or history or documentation to support dementia diagnosis. Psychiatric consultation was requested as discussed with the attending physician to support legal guardianship. According to the attending physician future care decisions would be complicated without the guardianship patient does not have a healthcare power of research technologist or family that is supportive. There was no indication the patient refusing treatments and there was not any life saving emergency procedure recommended that require immediate consent or emergency guardianship. Review of records does not indicate any previous psychiatric history of treatment or specific behavioral concerns other than what would be related to encephalopathy or delirium due to multiple causes. On interview patient presented as overtly elderly -Emirati female sitting in bed alert and awake. She was pleasant and friendly. She was oriented to self and hospital, her time orientation was approximate. There was no evidence of psychosis or mood disorder that require attention at this time. When I ask "how she managed her ADLs at home, she stated that her niece come and help her. CC: Stef Bello MD Past Med Surg Social Fam HX - Past Medical History Medical history: arthritis, coronary artery disease, dementia, diabetes, hyperlipidemia, hypertension, kidney stones, myocardial infarction, osteoporosis (Vitamin D deficiency.), renal disease, other - Past Surgical History Surgical History: coronary bypass (CABG), other - Social History Smoking Status: Never smoker Smokeless Tobacco Status: No Alcohol use: none Drug use: none - Family History Mother History Unknown: Yes Medications & Allergies Acetaminophen [Tylenol] 500 mg PO Q6HR 09/08/16 [History] Amlodipine Besylate 10 mg PO DAILY 09/08/16 [History] Aspirin 81 mg PO DAILY 09/08/16 [History] Cholecalciferol (Vitamin D3) [Vitamin D] 1,000 unit PO DAILY 09/08/16 [History] Cyanocobalamin (Vitamin B-12) [Vitamin B-12] 1,000 mcg SL DAILY 09/08/16 [ History] Furosemide [Lasix] 40 mg PO DAILY 09/08/16 [History] Glucagon,Human Recombinant [Glucagon Emergency Kit] 1 mg IJ ONCE PRN 09/08/16 [ History] Insulin Glargine,Hum.rec.anlog [Lantus Solostar] 5 unit SQ HS 09/08/16 [History] Labetalol HCl 200 mg PO BID 09/08/16 [History] Lactulose 60 ml PO BID PRN 09/08/16 [History] Lidocaine [Anecream5] 1 appl TP TID 09/08/16 [History] Pravastatin Sodium [Pravachol] 20 mg PO DAILY 09/08/16 [History] Spironolactone [Aldactone] 25 mg PO DAILY 09/08/16 [History] Allergies iodine Allergy (Verified 01/24/15 18:30) Rash Penicillins [PCN] Allergy (Verified 01/24/15 18:30) Redness of Skin Mental Status Exam Patient orientation: Yes Person, Yes Place Level of alertness: Alert Patient appearance: Appropriate, Well Groomed Behavior: calm, cooperative Psychomotor activity: Normal Eye contact: Maintains Eye Contact Mood description: Euthymic/stable Affect description: congruent with mood, full range Speech pattern: Normal rate, Normal rhythm, Normal tone Speech volume: Normal Thought process: Linear, Goal Oriented Thought content: No Suicidal ideation, No Homicidal ideation, No Overt delusions Perceptual disturbances: No Auditory hallucinations, No Visual hallucinations Attention span: Capable of Focused Attention Memory description: Recent Impaired, Remote Impaired Patient reliability: Not Reliable Historian Intelligence estimate: Average Judgment: Limited Insight: Partial Results - Vital Signs Vital signs: Temp Pulse Resp BP Pulse Ox 98.1 F 76 18 148/64 99 09/16/16 06:59 09/16/16 06:59 09/16/16 06:59 09/16/16 06:59 09/16/16 06:59 - Labs Labs: Laboratory Last Values WBC 10.4 K/mcL (4.3-11.1) 09/16/16 05:15 RBC 2.93 M/mcL (3.82-4.97) L 09/16/16 05:15 Hgb 8.6 g/dL (11.5-15.4) L 09/16/16 05:15 Hct 26.1 % (35.3-44.9) L 09/16/16 05:15 MCV 89.1 fL (83.0-100.0) 09/16/16 05:15 MCH 29.4 pg (28.0-33.3) 09/16/16 05:15 MCHC 33.0 g/dL (31.6-35.5) 09/16/16 05:15 RDW 14.2 % (11.5-14.5) 09/16/16 05:15 Plt Count 267 K/mcL (140-400) 09/16/16 05:15 MPV 9.4 fL (9.4-12.4) 09/16/16 05:15 Immature Gran % 0.5 % (0-4) 09/16/16 05:15 Seg Neutrophils % 66.4 % 09/16/16 05:15 Lymphocytes % 16.6 % 09/16/16 05:15 Monocytes % 12.7 % 09/16/16 05:15 Eosinophils % 3.4 % 09/16/16 05:15 Basophils % 0.4 % 09/16/16 05:15 Neutrophils # 6.9 K/mcL (1.6-8.9) 09/16/16 05:15 Lymphocytes # 1.7 K/mcL (0.6-4.6) 09/16/16 05:15 Monocytes # 1.3 K/mcL (0.0-1.3) 09/16/16 05:15 Eosinophils # 0.4 K/mcL (0.0-0.6) 09/16/16 05:15 Basophils # 0.0 K/mcL (0.0-0.2) 09/16/16 05:15 Immature Plt Fraction 1.2 % (1.1-6.1) 09/12/16 08:10 PT 11.9 Seconds (9.4-12.1) 09/08/16 16:37 INR 1.1 09/08/16 16:37 APTT 30.1 Seconds (26.0-36.0) 09/08/16 16:37 VBG pH 7.33 pH Units (7.32-7.42) 09/08/16 22:58 VBG pCO2 39 mmHg (41-51) L 09/08/16 22:58 VBG pO2 182 mmHg (25-40) H 09/08/16 22:58 VBG HCO3 20.6 mEq/L (21-27) L 09/08/16 22:58 Sodium 138 mEq/L (136-145) 09/16/16 05:15 Potassium 4.3 mEq/L (3.5-4.5) 09/16/16 05:15 Chloride 102 mEq/L (98-109) 09/16/16 05:15 Carbon Dioxide 19 mEq/L (19-29) 09/16/16 05:15 BUN 96 mg/dL (7-20) H 09/16/16 05:15 Creatinine 5.66 mg/dL (0.57-1.11) H 09/16/16 05:15 Est GFR ( Amer) 9 (> 60) L 09/16/16 05:15 Est GFR (Non-Af Amer) 7 (> 60) L 09/16/16 05:15 BUN/Creatinine Ratio 17 (6-26) 09/16/16 05:15 Glucose 119 mg/dL (70-99) H 09/16/16 05:15 POC Glucose 196 (58-89) H 09/15/16 22:20 Est Mean Plasma Glucose 91 mg/dl 09/08/16 22:58 Hemoglobin A1c 4.8 % (-5.6) 09/08/16 22:58 Calculated Osmolality 317 (280-300) H 09/16/16 05:15 Lactic Acid 0.7 mmol/L (0.5-2.2) 09/09/16 05:58 Calcium 9.2 mg/dL (8.6-10.8) 09/16/16 05:15 Ionized Calcium 1.15 mmol/L (1.15-1.35) 09/09/16 05:58 Phosphorus 5.5 mg/dL (2.3-4.7) H 09/09/16 05:58 Magnesium 1.7 mg/dL (1.6-2.6) 09/09/16 05:58 Iron 32 mcg/dL (50-170) L 09/13/16 08:24 % Saturation 11 % (15-50) L 09/13/16 08:24 Transferrin 201 mg/dL (180-382) 09/13/16 08:24 Total Bilirubin 0.4 mg/dL (0.2-1.2) 09/08/16 16:37 Direct Bilirubin 0.2 mg/dL (0.0-0.5) 09/08/16 16:37 Indirect Bilirubin 0.2 mg/dL (0.0-1.2) 09/08/16 16:37 AST 12 Units/L (5-34) 09/08/16 16:37 ALT 13 Units/L (0-55) 09/08/16 16:37 Alkaline Phosphatase 83 Units/L (38-126) 09/08/16 16:37 Ammonia 18 mcmol/L (18-72) 09/09/16 05:58 Creatine Kinase 253 Units/L (29-168) H 09/09/16 05:58 Troponin I 0.05 ng/mL (0-0.03) H* 09/09/16 05:58 B-Natriuretic Peptide 836 pg/mL (0-100) H 09/08/16 16:37 Serum Total Protein 6.6 g/dL (6.0-8.3) 09/08/16 16:37 Albumin 3.3 g/dL (3.5-5.0) L 09/08/16 16:37 Globulin 3.3 g/dL (2.4-3.5) 09/08/16 16:37 Albumin/Globulin Ratio 1.0 (1.1-2.2) L 09/08/16 16:37 Triglycerides 55 mg/dL (< 150) 09/09/16 05:58 Cholesterol 117 mg/dL (< 200) 09/09/16 05:58 LDL Cholesterol, Calc 63 mg/dL (0-99) 09/09/16 05:58 VLDL Cholesterol, Calc 11 mg/dL (< 31) 09/09/16 05:58 HDL Cholesterol 43 mg/dL (40-59) 09/09/16 05:58 Cholesterol/HDL Ratio 2.7 (0-4.9) 09/09/16 05:58 Vitamin B12 781 pg/mL (213-816) 09/13/16 08:24 Folate 4.1 ng/mL (7.0-31.4) L 09/13/16 08:24 TSH 4.000 mcIU/mL (0.350-4.840) 09/09/16 05:58 Urine Color Yellow (Yellow) 09/08/16 15:27 Urine Clarity Turbid (Clear) A 09/08/16 15:27 Urine pH 7.5 pH Units (5.0-8.0) 09/08/16 15:27 Ur Specific [place] 1.013 (1.010-1.025) 09/08/16 15:27 Urine Protein 100 mg/dL (Neg-Trace) H 09/08/16 15:27 Urine Glucose (UA) Normal mg/dL (Normal) 09/08/16 15:27 Urine Ketones Negative mg/dL (Negative) 09/08/16 15:27 Urine Blood Moderate (Negative) H 09/08/16 15:27 Urine Nitrite Positive (Negative) A 09/08/16 15:27 Urine Bilirubin Negative (Negative) 09/08/16 15:27 Urine Urobilinogen Normal mg/dL (Normal) 09/08/16 15:27 Ur Leukocyte Esterase Large (Negative) H 09/08/16 15:27 Urine Microscopic RBC 15-30 per hpf (0-3) H 09/08/16 15:27 Urine Microscopic WBC TNTC per hpf (0-3) H 09/08/16 15:27 Ur Squamous Epith Cells Many per lpf (None-Few) H 09/08/16 15:27 Urine Bacteria Many per hpf (None-Few) H 09/08/16 15:27 Hyaline Casts None Seen per lpf (None-Few) 09/08/16 15:27 Ur Culture Indicated? YES (NO) A 09/08/16 15:27 Urine Creatinine 22 mg/dL 09/09/16 03:15 Urine Microalbumin 659 mg/L 09/09/16 03:15 Microalb/Creat Ratio 2995 (0-30) H 09/09/16 03:15 Protein/Creatinin Ratio 5.23 mg/mg (0-0.20) H 09/09/16 03:15 Urine Total Protein 115 mg/dL (1-14) H 09/09/16 03:15 Blood Type O POSITIVE 09/09/16 05:58 Antibody Screen POSITIVE A 09/09/16 05:58 Antibody Identification Known Anti-KNOPS 09/09/16 05:58 Antibody ID Referred Cancelled 09/09/16 05:58 Crossmatch See Detail 09/09/16 05:58 Consult Discharge Plan - Plan Referrals: NO,PCP [Primary Care Provider] - (Patient will follow up with PCP at [facility])
--- NOTE | 2016-09-16 11:30 | Internal Med Progress Note ---
Date of Encounter: 09/16/16 Time of Encounter: 11:30 - Assessment and plan (1) Anasarca associated with disorder of kidney Current Visit: Yes Status: Acute Assessment and plan: Improved, I/O >-18L Decrease lasix to 40mg po bid (2) Anemia Current Visit: Yes Status: Acute Assessment and plan: Anemia of chronic disease, acute on chronic s/p 2 RBCS Hb improved to 8 Folate , iron levels low, receiving iron replacement Continue Vit B12 po, add folate po Monitor heme Qualifiers: Anemia type: unspecified type Qualified Code(s): D64.9 - Anemia, unspecified (3) ESRD (end stage renal disease) Current Visit: Yes Status: Chronic Assessment and plan: Patient is a creatinine of 5.29 and a GFR of 10 review of her medical records demonstrates a significant increase in her creatinine in August 2015 to present. Patient has no decisional capacity Electrolytes are stable for now No need for emergent hemodialysis at this time However, given patient's decisional capacity and placement of her self to hospice prior to arrival here and family dysharmony, with no healthcare POA assigned by patient, patient will need legal guardianship established for consents for medical management including rehab placement going forward Ethics committee has recommended psychiatry input Psych has been consulted 09/14/16, recommended neuropsych eval patient is calm, oriented X2, states "maybe", if asked if she wants to proceed with dialysis, she is unable to verbalize understanding or interpretation of treatment process, risks and possible alternatives (4) Hyperkalemia, diminished renal excretion Current Visit: Yes Status: Resolved Assessment and plan: Secondary to ESRD Resolved (5) Hyperphosphatemia Current Visit: Yes Status: Chronic Assessment and plan: Secondary to kidney disease Monitor PO4 Renal diet (6) UTI (urinary tract infection) Current Visit: Yes Status: Acute Assessment and plan: Urine culture with lactobacillus species Continue Rocephin, to complete 7 days D/C ceftriaxone after today's dose Renal USS with no stones or hydronephrosis Qualifiers: Urinary tract infection type: acute cystitis Hematuria presence: without hematuria Qualified Code(s): N30.00 - Acute cystitis without hematuria (7) CAD (coronary artery disease), [place] coronary artery Current Visit: Yes Status: Chronic Assessment and plan: Stable, CAD s/p CABG, - Continue beta guzman, statin, aspirin - Patient is not a candidate for TONY inhibitor as she has end-stage renal disease. - Continue pin chaser. Qualifiers: [place] vs. transplanted heart: [place] heart Associated angina: without angina Qualified Code(s): I25.10 - Atherosclerotic heart disease of [place] coronary artery without angina pectoris (8) Dementia arising in the senium and presenium Current Visit: Yes Status: Chronic Assessment and plan: AOX2 today Continue home meds (9) HLD (hyperlipidemia) Current Visit: Yes Status: Chronic Assessment and plan: Continue patient's home medications simvastatin 10 mg by mouth daily Qualifiers: Hyperlipidemia type: mixed hyperlipidemia Qualified Code(s): E78.2 - Mixed hyperlipidemia (10) HTN (hypertension) Current Visit: Yes Status: Chronic Assessment and plan: Controlled now, continue current meds Qualifiers: Hypertension type: unspecified secondary hypertension Qualified Code(s): I15.9 - Secondary hypertension, unspecified; I15 - Secondary hypertension (11) Type 2 diabetes mellitus Current Visit: Yes Status: Chronic Assessment and plan: A1C 4.8 Monitor FS ADA diet Qualifiers: Diabetes mellitus complication status: with unspecified complications Diabetes mellitus exterminator helper termite insulin use: unspecified mcfp insulin use status Qualified Code(s): E11.8 - Type 2 diabetes mellitus with unspecified complications (12) Folate deficiency Current Visit: Yes Status: Acute Assessment and plan: Continue folate - Subjective Interval history: 75 year old female significant medical history type II DM, CAD/CABG/AMI, osteoarthritis, osteoporosis/vitamin D deficiency, nonoliguric CKD stage V, dementia unspecified, hypertension, dyslipidemia, urinary retention/rec UTIs, nephrolithiasis, obesity, nonsmoker She is admitted and being managed for anasarca and worsening anemia of chronic disease. The patient also has nephrotic range proteinuria, and fluid overload. Seen at bedside, no new complains BP improved Psych eval noted, recommends neuropsychiatry eval, neurology consulted non- emergently - Constitutional Vitals: Temp Pulse Resp BP Pulse Ox 98 F 74 18 133/63 97 09/16/16 10:57 09/16/16 10:57 09/16/16 10:57 09/16/16 10:57 09/16/16 10:57 General appearance: Present: cooperative, A&O X 2, pleasant, obese. Absent: answers questions appropriately - Head Head exam: Present: atraumatic, normocephalic - Eye Eye exam: Present: PERRL, conjuntiva pink, sclera anicteric Pupils: Present: PERRL - Neck Neck exam general surgery: Present: supple, trachea midline. Absent: lymphadenopathy - Respiratory Respiratory exam: Present: CTAB. Absent: accessory muscle use, rales, rhonchi, wheezes - Cardiovascular Cardiovascular exam: Present: RRR, +S1, +S2. Absent: diastolic murmur, gallop, rubs, systolic murmur - GI/Abdominal GI/Abdominal exam: Present: normal bowel sounds, soft, no peritoneal signs. Absent: distended, tenderness - Extremities Exam Extremities exam: Present: warm, radial pulses palpable and symetrical. Absent : calf tenderness, cyanotic, pedal edema - Neurological Exam Neurological exam: Present: alert, CN II-XII intact, no focal deficits. Absent : oriented X3, pronater drift, facial droop, speech deficit - Skin Skin exam: Present: dry, intact Internal Medicine: Result - Labs CBC & Chem 7: 09/16/16 05:15 09/16/16 05:15 Labs: Short CBC 09/16/16 Range/Units 05:15 WBC 10.4 (4.3-11.1) K/mcL Hgb 8.6 L (11.5-15.4) g/dL Hct 26.1 L (35.3-44.9) % Plt Count 267 (140-400) K/mcL Neutrophils # 6.9 (1.6-8.9) K/mcL BMP 09/16/16 05:15 Sodium 138 Potassium 4.3 Chloride 102 Carbon Dioxide 19 BUN 96 H Creatinine 5.66 H Glucose 119 H Calcium 9.2 - ABG Interpretation ABG results: PT/INR, D-dimer PT 11.9 Seconds (9.4-12.1) 09/08/16 16:37 - VTE Documentation of Mechanical Device: Graduated compression elastic hosiery Consult Discharge Plan - Plan Referrals: NO,PCP [Primary Care Provider] - (Patient will follow up with PCP at [facility])
--- NOTE | 2016-09-16 14:54 | Nephrology Progress Note ---
Date of Encounter: 09/16/16 Time of Encounter: 14:48 - Assessment and Plan (1) CKD (chronic kidney disease) stage 5, GFR less than 15 ml/min Current Visit: Yes Status: Chronic CKD 5. Serum cr is stable, nonoliguric. No acute indication for dialysis. IV Lasix was changed to PO 40 mg twice a day today HTN, BP is improving. Continue current meds Anemia of chronic disease and iron deficiency. Stablehb Continue Aranesp and folate Subjective Principal diagnosis: CKD Interval history: 75-year-old female with h/o HTN, DM type II, CAD s/p CABG, dementia Admitted with anasarca and anemia. Has CKD stage V with nephrotic range proteinuria. Pt does not have the capacity to make decisons, does not have a legal guardian, Ethics is involved Has received 2 units of packed RBC, iv iron and folate supplements were started. BP is improving, urine output 2.2 L. Pt denies chest pain or shortness of breath. seen by psychiatry service, needs neuropsych eval Objective - Vital Signs Vital signs: Vital Signs Temp Pulse Resp BP Pulse Ox 09/16/16 10:57 98 F 74 18 133/63 97 09/16/16 06:59 98.1 F 76 18 148/64 99 09/16/16 04:23 97.9 F 78 18 151/53 93 09/16/16 00:20 98.7 F 75 18 152/65 97 09/15/16 22:27 98.7 F 76 18 174/74 97 09/15/16 17:13 98.1 F 76 14 158/68 97 Intake and Output 09/15/16 09/16/16 09/16/16 23:59 07:59 15:59 Intake Total 580 / 580 700 / 700 Output Total 850 / 850 800 / 800 1000 / 1000 Balance -270 / -270 -800 / -800 -300 / -300 Intake: IV Fluids 100 / 100 Rocephin 1,000 MG In 100 / 100 Dextrose 5% (Minibag+) 100 ML 100 ML @ 200 mls/ hr IVPB Q24H [facility] Rx#: [id number] Oral 580 / 580 600 / 600 Output: Urine 0 / 0 Catheter 850 / 850 800 / 800 1000 / 1000 Other: Meal Dinner Lunch Percent of Meal Consumed 90% 80% Blood Glucose* 196 106 197 - General Appearance Exam: CVS; s1s2 present, regular, no murmurs RESP; good air entry, clear to auscultation ABD; soft, NT, BS present, no organomegaly EXT; 1+ edema - Lab 09/16/16 05:15 09/16/16 05:15 Most recent lab results Calcium 9.2 mg/dL (8.6-10.8) 09/16/16 05:15 Phosphorus 5.5 mg/dL (2.3-4.7) H 09/09/16 05:58 Magnesium 1.7 mg/dL (1.6-2.6) 09/09/16 05:58 Urine Creatinine 22 mg/dL 09/09/16 03:15 Urine Total Protein 115 mg/dL (1-14) H 09/09/16 03:15 - VTE Documentation of Mechanical Device: Graduated compression elastic hosiery Consult Discharge Plan - Plan Referrals: NO,PCP [Primary Care Provider] - (Patient will follow up with PCP at [facility])
[2016-09-16] MEDS: Furosemide 40 MG TABLET PO SCH (16:35)
[2016-09-16] MEDS: Insulin DETEMIR 100 UNIT/ML X5UNITS SQ SCH (20:56)
[2016-09-17] MEDS: *HR* Heparin 5,000 UNIT/ML VIAL SQ SCH ×2 (06:11→17:11)
[2016-09-17] MEDS: Insulin LISPRO 300 UNITS/3 ML VIAL SQ SCH ×4 (09:10→20:15)
--- NOTE | 2016-09-17 09:13 | Neurology - Consult Note ---
<Jeet Dawson - Last Filed: 09/17/16 14:13> Date of Encounter: 09/17/16 Time of Encounter: 09:13 Assessment and Plan (1) Dementia Current Visit: Yes Status: Acute Ethics committee has been involved in this case since patient will need a legal guardianship establishment for consents for medical managements including the rehabilitation placement and possibility of initiation of hemodialysis in the future, currently patient has no healthcare POA assigned and questionable medical decision-making capacity due underlying dementia, psychiatry has been consulted and recommended neurology input. Patient states that she does activities of daily living by herself without any issues, she lives alone, drives to grocery store by herself, but none of these were true after talking to nurse at her assisted living facility, the nurse told me that she has been having dementia for long time and recently it got worse, she was enrolled in hospice comfort care before admitted to the hospital this time. When I spoke to her, she was A and O 2, not oriented to time, answers appropriately to my questions but none of these are true statement. Mini-Mental status exam may not be accurate at this time with her current ongoing treatment of UTI and possible uremia from worsening renal function, at least she is in middle stage of dementia as she needs daily assistance for her ADLs and not answering questions accurately. Qualifiers: Qualified Code(s): F03.90 - Unspecified dementia without behavioral disturbance History of Present Illness Chief complaint: Evaluation of a possible underlying dementia HPI: Ms. Montoya is a 75 year old female with history of dementia, chronic kidney disease stage V, chronic anemia, hypertension, and diabetes type 2 who was admitted to the hospital for acute on chronic nonoliguric chronic kidney disease stage V, patient was initially brought from her home to the ER for worsening shortness of breath. Patient lives at assisted living facility, she states that she does activities of daily living by herself, patient has a niece come to her house every other day to help her but when I spoke to nurse at the facility, which was not true, she has not be driven for long time and nurses are helping to bath her and help with activities of daily living, neurology service was consulted per recommendation from psychiatry service for evaluation of degree of dementia. Currently no urgent hemodialysis is indicated per nephrology, patient makes good urine output, however her renal function is worse than her baseline, when I talked her in the room patient was A and O 2, not oriented to time, she will answer to my questions appropriately but none of these answers are true after confirming with assisted living facility nurse. Past Med Surg Social Fam HX - Past Medical History Medical history: arthritis, coronary artery disease, dementia, diabetes, hyperlipidemia, hypertension, kidney stones, myocardial infarction, osteoporosis (Vitamin D deficiency.), renal disease, other Psychiatric history: other - Past Surgical History Surgical History: coronary bypass (CABG), other - Social History Smoking Status: Never smoker Smokeless Tobacco Status: No Alcohol use: none Drug use: none - Family History Mother History Unknown: Yes Medications and Allergies Acetaminophen [Tylenol] 500 mg PO Q6HR 09/08/16 [History] Amlodipine Besylate 10 mg PO DAILY 09/08/16 [History] Aspirin 81 mg PO DAILY 09/08/16 [History] Cholecalciferol (Vitamin D3) [Vitamin D] 1,000 unit PO DAILY 09/08/16 [History] Cyanocobalamin (Vitamin B-12) [Vitamin B-12] 1,000 mcg SL DAILY 09/08/16 [ History] Furosemide [Lasix] 40 mg PO DAILY 09/08/16 [History] Glucagon,Human Recombinant [Glucagon Emergency Kit] 1 mg IJ ONCE PRN 09/08/16 [ History] Insulin Glargine,Hum.rec.anlog [Lantus Solostar] 5 unit SQ HS 09/08/16 [History] Labetalol HCl 200 mg PO BID 09/08/16 [History] Lactulose 60 ml PO BID PRN 09/08/16 [History] Lidocaine [Anecream5] 1 appl TP TID 09/08/16 [History] Pravastatin Sodium [Pravachol] 20 mg PO DAILY 09/08/16 [History] Spironolactone [Aldactone] 25 mg PO DAILY 09/08/16 [History] Allergies iodine Allergy (Verified 01/24/15 18:30) Rash Penicillins [PCN] Allergy (Verified 01/24/15 18:30) Redness of Skin All Systems: A 10-system review of systems was performed and is negative for pertinent findings except as documented above in the HPI. Review of Systems: Patient denies headache, visual changes, memory issue, speech issue, facial droop, tingling/numbness/weakness of upper/lower extremities, or urinary/bowel incontinence. Physical Examination - Vital Signs Vital Signs: Initial Vital Signs Temp Pulse Resp BP Pulse Ox 98.7 F 102 20 161/87 98 09/08/16 15:13 09/08/16 15:13 09/08/16 15:13 09/08/16 15:13 09/08/16 15:13 - Constitutional General appearance: comfortable - Neurologic Sensorimotor examination: intact Detailed motor examination: grossly full strength in all extremities, full strength in all major muscle groups Motor examination - right side: 5/5: deltoids, biceps, triceps, wrist flexion, wrist extension, substance abuse specialist, hip flexors, quadriceps, plantarflexion Motor examination - left side: 5/5: deltoids, biceps, triceps, wrist flexion, wrist extension, hip flexors, substance abuse specialist, quadriceps, plantarflexion Detailed sensory examination: intact Reflex and gait examination: intact Reflexes: Biceps: 2+, Triceps: 2+, Brachioradialis: 2+, Patella: 2+, Achilles: 2 + Mental Status Examination: awake, alert, oriented to person, oriented to place, follows commands appropriately, answers questions appropriately, no agnosia, no aphasia, no aproxia Cranial nerve examination: PERRL, EOMI, visual ventura intact, sensory to face intact, mastication intact, no facial asymmetry is present, no dysarthria, hearing is intact symmetrically, soft palate elevates bilaterally upon phonation , tongue protrudes midline, no atrophy or facial fasiculations present Cerebellar examination: no dysmetria, no truncal ataxia, no difficulty with rapid alternating movements Results - Laboratory Findings CBC and BMP: 09/16/16 05:15 09/16/16 05:15 Abnormal lab findings: Abnormal lab results RBC 2.93 M/mcL (3.82-4.97) L 09/16/16 05:15 Hgb 8.6 g/dL (11.5-15.4) L 09/16/16 05:15 Hct 26.1 % (35.3-44.9) L 09/16/16 05:15 VBG pCO2 39 mmHg (41-51) L 09/08/16 22:58 VBG pO2 182 mmHg (25-40) H 09/08/16 22:58 VBG HCO3 20.6 mEq/L (21-27) L 09/08/16 22:58 BUN 96 mg/dL (7-20) H 09/16/16 05:15 Creatinine 5.66 mg/dL (0.57-1.11) H 09/16/16 05:15 Est GFR ( Amer) 9 (> 60) L 09/16/16 05:15 Est GFR (Non-Af Amer) 7 (> 60) L 09/16/16 05:15 Glucose 119 mg/dL (70-99) H 09/16/16 05:15 POC Glucose 153 (58-89) H 09/16/16 21:08 Calculated Osmolality 317 (280-300) H 09/16/16 05:15 Phosphorus 5.5 mg/dL (2.3-4.7) H 09/09/16 05:58 Iron 32 mcg/dL (50-170) L 09/13/16 08:24 % Saturation 11 % (15-50) L 09/13/16 08:24 Creatine Kinase 253 Units/L (29-168) H 09/09/16 05:58 Troponin I 0.05 ng/mL (0-0.03) H* 09/09/16 05:58 B-Natriuretic Peptide 836 pg/mL (0-100) H 09/08/16 16:37 Albumin 3.3 g/dL (3.5-5.0) L 09/08/16 16:37 Albumin/Globulin Ratio 1.0 (1.1-2.2) L 09/08/16 16:37 Folate 4.1 ng/mL (7.0-31.4) L 09/13/16 08:24 Urine Clarity Turbid (Clear) A 09/08/16 15:27 Urine Protein 100 mg/dL (Neg-Trace) H 09/08/16 15:27 Urine Blood Moderate (Negative) H 09/08/16 15:27 Urine Nitrite Positive (Negative) A 09/08/16 15:27 Ur Leukocyte Esterase Large (Negative) H 09/08/16 15:27 Urine Microscopic RBC 15-30 per hpf (0-3) H 09/08/16 15:27 Urine Microscopic WBC TNTC per hpf (0-3) H 09/08/16 15:27 Ur Squamous Epith Cells Many per lpf (None-Few) H 09/08/16 15:27 Urine Bacteria Many per hpf (None-Few) H 09/08/16 15:27 Ur Culture Indicated? YES (NO) A 09/08/16 15:27 Microalb/Creat Ratio 2995 (0-30) H 09/09/16 03:15 Protein/Creatinin Ratio 5.23 mg/mg (0-0.20) H 09/09/16 03:15 Urine Total Protein 115 mg/dL (1-14) H 09/09/16 03:15 Antibody Screen POSITIVE A 09/09/16 05:58 Consult Discharge Plan - Plan Referrals: NO,PCP [Primary Care Provider] - (Patient will follow up with PCP at [facility]) <VuYoseph Hebert - Last Filed: 09/17/16 15:34> Date of Encounter: 09/17/16 Time of Encounter: 15:26 Assessment and Plan (1) Dementia Current Visit: Yes Status: Acute This patient has significant cognitive compromise. She has problems with memory , executive functioning, and is certainly not cognizant enough to be able to care for herself. Her CT scan of the brain does reveal significant cortical atrophy. This seems to be be consistent with a classic case of senile dementia of the Alzheimer's type. She does not have hallucinations or any other behaviors that would suggest any underlying movement disorder or other type of neurodegenerative variant of Alzheimer's. She however would not be able to make decisions in her best interest. Recommend your ongoing treatment and management of her underlying medical conditions. I see no evidence of delirium on her neurologic examination. No other testing is necessary. At this juncture , I might still consider the addition of donepezil 5 mg daily to titrate up to 10 mg daily after 4-6 weeks. Been followed by the addition of memantine. I will reevaluate your request. History of Present Illness HPI: Ms. Montoya is a 75 year old female seen for neurologic evaluation secondary to dementia. The case was discussed with Dr. Dawson she was also seen and examined independently. I agree with his statement as above. Patient largely confabulates, her speech is fluent. However she has significant deficits in all spheres of cognition. All Systems: A 10-system review of systems was performed and is negative for pertinent findings except as documented above in the HPI. Review of Systems: Review of systems is consistent with the above. Physical Examination - Vital Signs Vital Signs: Initial Vital Signs Temp Pulse Resp BP Pulse Ox 98.7 F 102 20 161/87 98 09/08/16 15:13 09/08/16 15:13 09/08/16 15:13 09/08/16 15:13 09/08/16 15:13 - Neurologic Mental Status Examination: awake, alert, oriented to person, does not follow commands ( patient is pleasantly demented. She engages conversation however is not a reliable historian.), inattentive, hook and gasp reflex, palmomental reflex, glabellar sign present, motor apraxia Results - Laboratory Findings CBC and BMP: 09/16/16 05:15 09/16/16 05:15 Abnormal lab findings: Abnormal lab results RBC 2.93 M/mcL (3.82-4.97) L 09/16/16 05:15 Hgb 8.6 g/dL (11.5-15.4) L 09/16/16 05:15 Hct 26.1 % (35.3-44.9) L 09/16/16 05:15 VBG pCO2 39 mmHg (41-51) L 09/08/16 22:58 VBG pO2 182 mmHg (25-40) H 09/08/16 22:58 VBG HCO3 20.6 mEq/L (21-27) L 09/08/16 22:58 BUN 96 mg/dL (7-20) H 09/16/16 05:15 Creatinine 5.66 mg/dL (0.57-1.11) H 09/16/16 05:15 Est GFR ( Amer) 9 (> 60) L 09/16/16 05:15 Est GFR (Non-Af Amer) 7 (> 60) L 09/16/16 05:15 Glucose 119 mg/dL (70-99) H 09/16/16 05:15 POC Glucose 153 (58-89) H 09/16/16 21:08 Calculated Osmolality 317 (280-300) H 09/16/16 05:15 Phosphorus 5.5 mg/dL (2.3-4.7) H 09/09/16 05:58 Iron 32 mcg/dL (50-170) L 09/13/16 08:24 % Saturation 11 % (15-50) L 09/13/16 08:24 Creatine Kinase 253 Units/L (29-168) H 09/09/16 05:58 Troponin I 0.05 ng/mL (0-0.03) H* 09/09/16 05:58 B-Natriuretic Peptide 836 pg/mL (0-100) H 09/08/16 16:37 Albumin 3.3 g/dL (3.5-5.0) L 09/08/16 16:37 Albumin/Globulin Ratio 1.0 (1.1-2.2) L 09/08/16 16:37 Folate 4.1 ng/mL (7.0-31.4) L 09/13/16 08:24 Urine Clarity Turbid (Clear) A 09/08/16 15:27 Urine Protein 100 mg/dL (Neg-Trace) H 09/08/16 15:27 Urine Blood Moderate (Negative) H 09/08/16 15:27 Urine Nitrite Positive (Negative) A 09/08/16 15:27 Ur Leukocyte Esterase Large (Negative) H 09/08/16 15:27 Urine Microscopic RBC 15-30 per hpf (0-3) H 09/08/16 15:27 Urine Microscopic WBC TNTC per hpf (0-3) H 09/08/16 15:27 Ur Squamous Epith Cells Many per lpf (None-Few) H 09/08/16 15:27 Urine Bacteria Many per hpf (None-Few) H 09/08/16 15:27 Ur Culture Indicated? YES (NO) A 09/08/16 15:27 Microalb/Creat Ratio 2995 (0-30) H 09/09/16 03:15 Protein/Creatinin Ratio 5.23 mg/mg (0-0.20) H 09/09/16 03:15 Urine Total Protein 115 mg/dL (1-14) H 09/09/16 03:15 Antibody Screen POSITIVE A 09/09/16 05:58
[2016-09-17] MEDS: Aspirin 81 MG TAB.CHEW PO SCH (09:17)
[2016-09-17] MEDS: Lactulose Oral Soln 20 GM/30 ML UDC PO SCH (09:17)
[2016-09-17] MEDS: Cyanocobalamin (B-12) 1,000 MCG TABLET PO SCH (09:17)
[2016-09-17] MEDS: Folic Acid 1 MG TABLET PO SCH (09:17)
[2016-09-17] MEDS: Furosemide 40 MG TABLET PO SCH ×2 (09:18→17:12)
[2016-09-17] MEDS: hydrALAZINE 25 MG TABLET PO SCH ×3 (09:18→20:19)
[2016-09-17] MEDS: Cholecalciferol (D-3) 1,000 UNIT TABLET PO SCH (09:18)
[2016-09-17] MEDS: amLODIPine 5 MG TABLET PO SCH (09:18)
--- NOTE | 2016-09-17 09:32 | Nephrology Progress Note ---
Date of Encounter: 09/17/16 Time of Encounter: 09:31 - Assessment and Plan (1) CKD (chronic kidney disease) stage 5, GFR less than 15 ml/min Current Visit: Yes Status: Chronic Patient has stage V CK D. We are waiting further guidance with regards to whether or not dialysis should be initiated based on patient's wishes as well as input from neurology psychiatry and social work. This is because the patient has underlying dementia and is unable to make medical decisions on her own. Acute indication for urgent dialysis. We will continue to monitor the patient. (2) Dementia arising in the senium and presenium Current Visit: Yes Status: Chronic Subjective Principal diagnosis: CKD Interval history: Patient is alert. She reports no complaints. She is in no acute distress. Renal function is essentially unchanged. Urine output is excellent. Objective - Vital Signs Vital signs: Vital Signs Temp Pulse Resp BP Pulse Ox 09/17/16 07:06 98.6 F 82 16 167/87 97 09/17/16 05:23 98.1 F 79 18 150/60 96 09/17/16 01:17 98.0 F 77 18 157/65 98 09/16/16 21:11 98.1 F 75 18 165/68 94 09/16/16 15:55 98 F 75 18 136/61 96 09/16/16 10:57 98 F 74 18 133/63 97 Intake and Output 09/16/16 09/17/16 09/17/16 23:59 07:59 15:59 Intake Total 275 / 275 360 / 360 Output Total 500 / 500 500 / 500 Balance -225 / -225 -500 / -500 360 / 360 Intake: IV Fluids 100 / 100 Rocephin 1,000 MG In 100 / 100 Dextrose 5% (Minibag+) 100 ML 100 ML @ 200 mls/ hr IVPB Q24H [facility] Rx#: [id number] Oral 175 / 175 360 / 360 Output: Catheter 500 / 500 500 / 500 Other: Meal Breakfast Percent of Meal Consumed 100% Weight 86 kg Blood Glucose* 153 120 Patient Weight 09/17/16 23:59 Weight 86 kg - General Appearance Exam: Patient is alert. She is in no acute distress. Lungs essentially clear to auscultation. Heart regular rate and rhythm. Abdomen is benign. There is minimal lower extremity swelling. - Lab 09/16/16 05:15 09/16/16 05:15 Most recent lab results Calcium 9.2 mg/dL (8.6-10.8) 09/16/16 05:15 Phosphorus 5.5 mg/dL (2.3-4.7) H 09/09/16 05:58 Magnesium 1.7 mg/dL (1.6-2.6) 09/09/16 05:58 Urine Creatinine 22 mg/dL 09/09/16 03:15 Urine Total Protein 115 mg/dL (1-14) H 09/09/16 03:15 - VTE Documentation of Mechanical Device: Graduated compression elastic hosiery Consult Discharge Plan - Plan Referrals: NO,PCP [Primary Care Provider] - (Patient will follow up with PCP at [facility])
--- NOTE | 2016-09-17 12:37 | Internal Med Progress Note ---
Date of Encounter: 09/17/16 Time of Encounter: 12:36 - Assessment and plan (1) Anasarca associated with disorder of kidney Current Visit: Yes Status: Acute Assessment and plan: Improved, I/O >-18L Continue lasix to 40mg po bid (2) Anemia Current Visit: Yes Status: Acute Assessment and plan: Anemia of chronic disease, acute on chronic s/p 2 RBCS Hb improved to 8 Folate , iron levels low, receiving iron replacement Continue Vit B12 po, add folate po Monitor heme Qualifiers: Anemia type: unspecified type Qualified Code(s): D64.9 - Anemia, unspecified (3) ESRD (end stage renal disease) Current Visit: Yes Status: Chronic Assessment and plan: Patient is a creatinine of 5.29 and a GFR of 10 review of her medical records demonstrates a significant increase in her creatinine in August 2015 to present. Patient has no decisional capacity Electrolytes are stable for now No need for emergent hemodialysis at this time However, given patient's decisional capacity and placement of her self to hospice prior to arrival here and family dysharmony, with no healthcare POA assigned by patient, patient will need legal guardianship established for consents for medical management including rehab placement going forward Ethics committee has recommended psychiatry input Psych has been consulted 09/14/16, recommended neuropsych eval patient is calm, oriented X2, states "maybe", if asked if she wants to proceed with dialysis, she is unable to verbalize understanding or interpretation of treatment process, risks and possible alternatives (4) Hyperkalemia, diminished renal excretion Current Visit: Yes Status: Resolved Assessment and plan: Secondary to ESRD Resolved (5) Hyperphosphatemia Current Visit: Yes Status: Chronic Assessment and plan: Secondary to kidney disease Monitor PO4 Renal diet (6) UTI (urinary tract infection) Current Visit: Yes Status: Acute Assessment and plan: Urine culture with lactobacillus species Continue Rocephin, to complete 7 days Course of antibiotics completed Renal USS with no stones or hydronephrosis Qualifiers: Urinary tract infection type: acute cystitis Hematuria presence: without hematuria Qualified Code(s): N30.00 - Acute cystitis without hematuria (7) CAD (coronary artery disease), [place] coronary artery Current Visit: Yes Status: Chronic Assessment and plan: Stable, CAD s/p CABG, - Continue beta guzman, statin, aspirin - Patient is not a candidate for TONY inhibitor as she has end-stage renal disease. - Continue media monitor. Qualifiers: [place] vs. transplanted heart: [place] heart Associated angina: without angina Qualified Code(s): I25.10 - Atherosclerotic heart disease of [place] coronary artery without angina pectoris (8) Dementia arising in the senium and presenium Current Visit: Yes Status: Chronic Assessment and plan: AOX2 today Continue home meds (9) HLD (hyperlipidemia) Current Visit: Yes Status: Chronic Assessment and plan: Continue patient's home medications simvastatin 10 mg by mouth daily Qualifiers: Hyperlipidemia type: mixed hyperlipidemia Qualified Code(s): E78.2 - Mixed hyperlipidemia (10) HTN (hypertension) Current Visit: Yes Status: Chronic Assessment and plan: Controlled now, continue current meds Qualifiers: Hypertension type: unspecified secondary hypertension Qualified Code(s): I15.9 - Secondary hypertension, unspecified; I15 - Secondary hypertension (11) Type 2 diabetes mellitus Current Visit: Yes Status: Chronic Assessment and plan: A1C 4.8 Monitor FS ADA diet Qualifiers: Diabetes mellitus complication status: with unspecified complications Diabetes mellitus ferry terminal supervisor insulin use: unspecified ferry terminal supervisor insulin use status Qualified Code(s): E11.8 - Type 2 diabetes mellitus with unspecified complications (12) Folate deficiency Current Visit: Yes Status: Acute Assessment and plan: Continue folate - Subjective Interval history: 75 year old female significant medical history type II DM, CAD/CABG/AMI, osteoarthritis, osteoporosis/vitamin D deficiency, non-oliguric CKD stage V, dementia unspecified, hypertension, dyslipidemia, urinary retention/rec UTIs, nephrolithiasis, obesity, nonsmoker She is admitted and being managed for anasarca and worsening anemia of chronic disease. The patient also has nephrotic range proteinuria, and fluid overload. Seen at bedside, no new complains BP improved Psych eval noted, recommends neuropsychiatry eval, neurology consulted non- emergently, awaiting review Patient is oriented X2, no new changes with orientation, she continues to only nod to questions and answers "HUM-HUM" to most questions. She is unable to apply information given to her about her diagnosis to herself, she is unable to repeat information given to her regarding her care or verbalize in her own words her diagnosis or prognosis Confirmed from Living facility nurse that patient has been having worsening mental status decline for several years and has not driven, nor is dependent. Her family has not been readily reachable, until the day they went to visit and called the squad for her transfer here - Constitutional Vitals: Temp Pulse Resp BP Pulse Ox 99.5 F 86 16 150/58 98 09/17/16 11:42 09/17/16 11:42 09/17/16 11:42 09/17/16 11:42 09/17/16 11:42 General appearance: Present: cooperative, A&O X 2, pleasant, obese. Absent: answers questions appropriately - Head Head exam: Present: atraumatic, normocephalic - Eye Eye exam: Present: PERRL, conjuntiva pink, sclera anicteric Pupils: Present: PERRL - Neck Neck exam general surgery: Present: supple, trachea midline. Absent: lymphadenopathy - Respiratory Respiratory exam: Present: CTAB. Absent: accessory muscle use, rales, rhonchi, wheezes - Cardiovascular Cardiovascular exam: Present: RRR, +S1, +S2, systolic murmur. Absent: diastolic murmur, gallop, rubs - GI/Abdominal GI/Abdominal exam: Present: normal bowel sounds, soft, no peritoneal signs. Absent: distended, tenderness - Extremities Exam Extremities exam: Present: warm, radial pulses palpable and symetrical. Absent : calf tenderness, cyanotic, pedal edema - Neurological Exam Neurological exam: Present: alert, CN II-XII intact, no focal deficits. Absent : oriented X3, pronater drift, facial droop, speech deficit - Skin Skin exam: Present: dry, intact Internal Medicine: Result - Labs CBC & Chem 7: 09/16/16 05:15 09/16/16 05:15 - ABG Interpretation ABG results: PT/INR, D-dimer PT 11.9 Seconds (9.4-12.1) 09/08/16 16:37 - VTE Documentation of Mechanical Device: Graduated compression elastic hosiery Consult Discharge Plan - Plan Referrals: NO,PCP [Primary Care Provider] - (Patient will follow up with PCP at [facility])
[2016-09-17] MEDS: Insulin DETEMIR 100 UNIT/ML X5UNITS SQ SCH (20:18)
[2016-09-18] MEDS: *HR* Heparin 5,000 UNIT/ML VIAL SQ SCH ×2 (05:07→17:05)
--- NOTE | 2016-09-18 07:55 | Nephrology Progress Note ---
Date of Encounter: 09/18/16 Time of Encounter: 07:53 - Assessment and Plan (1) CKD (chronic kidney disease) stage 5, GFR less than 15 ml/min Current Visit: Yes Status: Chronic Patient has stage V CK D. She is unable to make medical decisions for herself. We are awaiting establishment of guardianship. There is no acute indication to begin dialysis. (2) Dementia arising in the senium and presenium Current Visit: Yes Status: Chronic Subjective Principal diagnosis: CKD Interval history: The patient is clinically the same. She is alert. She voices no complaints. Urine output is satisfactory. Neurology input noted. They feel the patient has underlying dementia. Objective - Vital Signs Vital signs: Vital Signs Temp Pulse Resp BP Pulse Ox 09/18/16 04:00 98.5 F 76 16 127/55 95 09/17/16 23:39 98.7 F 75 16 120/47 95 09/17/16 20:08 98.6 F 69 16 133/54 96 09/17/16 15:57 98.6 F 75 16 144/65 99 09/17/16 11:42 99.5 F 86 16 150/58 98 Intake and Output 09/17/16 09/17/16 09/18/16 15:59 23:59 07:59 Intake Total 600 / 600 0 / 0 Output Total 550 / 550 0 / 0 1000 / 1000 Balance 50 / 50 0 / 0 -1000 / -1000 Intake: Oral 600 / 600 0 / 0 Output: Urine 0 / 0 Catheter 550 / 550 1000 / 1000 Other: Meal Lunch Percent of Meal Consumed 60% Weight 86.3 kg Blood Glucose* 238 164 Patient Weight 09/18/16 23:59 Weight 86.3 kg - General Appearance Exam: Patient is alert. She is in no acute distress. Vital signs are stable. She is afebrile. Heart regular rate and rhythm with a 2/6.ejection murmur. Lung sounds otherwise clear. Abdomen is benign. There is no peripheral edema. - Lab 09/16/16 05:15 09/16/16 05:15 Most recent lab results Calcium 9.2 mg/dL (8.6-10.8) 09/16/16 05:15 Phosphorus 5.5 mg/dL (2.3-4.7) H 09/09/16 05:58 Magnesium 1.7 mg/dL (1.6-2.6) 09/09/16 05:58 Urine Creatinine 22 mg/dL 09/09/16 03:15 Urine Total Protein 115 mg/dL (1-14) H 09/09/16 03:15 - VTE Documentation of Mechanical Device: Graduated compression elastic hosiery Consult Discharge Plan - Plan Referrals: NO,PCP [Primary Care Provider] - (Patient will follow up with PCP at [facility])
[2016-09-18] MEDS: Furosemide 40 MG TABLET PO SCH ×2 (08:52→15:56)
[2016-09-18] MEDS: Insulin LISPRO 300 UNITS/3 ML VIAL SQ SCH ×4 (08:52→21:34)
[2016-09-18] MEDS: amLODIPine 5 MG TABLET PO SCH (08:52)
[2016-09-18] MEDS: hydrALAZINE 25 MG TABLET PO SCH ×3 (08:52→20:15)
[2016-09-18] MEDS: Cyanocobalamin (B-12) 1,000 MCG TABLET PO SCH (08:52)
[2016-09-18] MEDS: Folic Acid 1 MG TABLET PO SCH (08:52)
[2016-09-18] MEDS: Cholecalciferol (D-3) 1,000 UNIT TABLET PO SCH (08:53)
[2016-09-18] MEDS: Lactulose Oral Soln 20 GM/30 ML UDC PO SCH (08:53)
[2016-09-18] MEDS: Aspirin 81 MG TAB.CHEW PO SCH (08:53)
--- NOTE | 2016-09-18 09:30 | Internal Med Progress Note ---
Date of Encounter: 09/18/16 Time of Encounter: 09:28 - Assessment and plan (1) Anasarca associated with disorder of kidney Current Visit: Yes Status: Acute Assessment and plan: Improved, I/O >-18L Continue lasix to 40mg po bid (2) Anemia Current Visit: Yes Status: Acute Assessment and plan: Anemia of chronic disease, acute on chronic s/p 2 RBCS Hb improved to 8 Folate , iron levels low, receiving iron replacement Continue Vit B12 po, add folate po Monitor heme Qualifiers: Anemia type: unspecified type Qualified Code(s): D64.9 - Anemia, unspecified (3) ESRD (end stage renal disease) Current Visit: Yes Status: Chronic Assessment and plan: Patient is a creatinine of 5.29 and a GFR of 10 review of her medical records demonstrates a significant increase in her creatinine in August 2015 to present. Patient has no decisional capacity Electrolytes are stable for now No need for emergent hemodialysis at this time However, given patient's decisional capacity and placement of her self to hospice prior to arrival here and family dysharmony, with no healthcare POA assigned by patient, patient will need legal guardianship established for consents for medical management including rehab placement going forward Ethics committee has recommended psychiatry input Psych has been consulted 09/14/16, Appreciate neuro eval patient is calm, oriented X2, s (4) Hyperkalemia, diminished renal excretion Current Visit: Yes Status: Resolved Assessment and plan: Secondary to ESRD Resolved (5) Hyperphosphatemia Current Visit: Yes Status: Chronic Assessment and plan: Secondary to kidney disease Monitor PO4 Renal diet (6) UTI (urinary tract infection) Current Visit: Yes Status: Acute Assessment and plan: Urine culture with lactobacillus species Continue Rocephin, to complete 7 days Course of antibiotics completed Renal USS with no stones or hydronephrosis Qualifiers: Urinary tract infection type: acute cystitis Hematuria presence: without hematuria Qualified Code(s): N30.00 - Acute cystitis without hematuria (7) CAD (coronary artery disease), [place] coronary artery Current Visit: Yes Status: Chronic Qualifiers: [place] vs. transplanted heart: [place] heart Associated angina: without angina Qualified Code(s): I25.10 - Atherosclerotic heart disease of [place] coronary artery without angina pectoris (8) Dementia arising in the senium and presenium Current Visit: Yes Status: Chronic (9) HLD (hyperlipidemia) Current Visit: Yes Status: Chronic Qualifiers: Hyperlipidemia type: mixed hyperlipidemia Qualified Code(s): E78.2 - Mixed hyperlipidemia (10) HTN (hypertension) Current Visit: Yes Status: Chronic Qualifiers: Hypertension type: unspecified secondary hypertension Qualified Code(s): I15.9 - Secondary hypertension, unspecified; I15 - Secondary hypertension (11) Type 2 diabetes mellitus Current Visit: Yes Status: Chronic Qualifiers: Diabetes mellitus complication status: with unspecified complications Diabetes mellitus longterm insulin use: unspecified longterm insulin use status Qualified Code(s): E11.8 - Type 2 diabetes mellitus with unspecified complications (12) Folate deficiency Current Visit: Yes Status: Acute - Subjective Interval history: 75 year old female significant medical history type II DM, CAD/CABG/AMI, osteoarthritis, osteoporosis/vitamin D deficiency, non-oliguric CKD stage V, dementia unspecified, hypertension, dyslipidemia, urinary retention/rec UTIs, nephrolithiasis, obesity, nonsmoker She is admitted and being managed for anasarca and worsening anemia of chronic disease. The patient also has nephrotic range proteinuria, and fluid overload. Seen at bedside, no new complains BP improved Psych eval noted, recommends neuropsychiatry eval, neurology consulted appreciated Awaiting legal guardianship - Constitutional Vitals: Temp Pulse Resp BP Pulse Ox 98.2 F 79 18 163/74 95 09/18/16 07:55 09/18/16 07:55 09/18/16 07:55 09/18/16 07:55 09/18/16 07:55 General appearance: Present: cooperative, A&O X 2, pleasant, obese. Absent: answers questions appropriately - Head Head exam: Present: atraumatic, normocephalic - Eye Eye exam: Present: PERRL, conjuntiva pink, sclera anicteric Pupils: Present: PERRL - Neck Neck exam general surgery: Present: supple, trachea midline. Absent: lymphadenopathy - Respiratory Respiratory exam: Present: CTAB. Absent: accessory muscle use, rales, rhonchi, wheezes - Cardiovascular Cardiovascular exam: Present: RRR, +S1, +S2, systolic murmur. Absent: diastolic murmur, gallop, rubs - GI/Abdominal GI/Abdominal exam: Present: normal bowel sounds, soft, no peritoneal signs. Absent: distended, tenderness - Extremities Exam Extremities exam: Present: warm, radial pulses palpable and symetrical. Absent : calf tenderness, cyanotic, pedal edema - Neurological Exam Neurological exam: Present: alert, CN II-XII intact, no focal deficits. Absent : oriented X3, pronater drift, facial droop, speech deficit - Skin Skin exam: Present: dry, intact Internal Medicine: Result - Labs CBC & Chem 7: 09/16/16 05:15 09/16/16 05:15 - ABG Interpretation ABG results: PT/INR, D-dimer PT 11.9 Seconds (9.4-12.1) 09/08/16 16:37 - VTE Documentation of Mechanical Device: Graduated compression elastic hosiery Consult Discharge Plan - Plan Referrals: NO,PCP [Primary Care Provider] - (Patient will follow up with PCP at [facility])
[2016-09-18] MEDS: Insulin DETEMIR 100 UNIT/ML X5UNITS SQ SCH (20:18)
[2016-09-19] MEDS: *HR* Heparin 5,000 UNIT/ML VIAL SQ SCH ×2 (05:34→17:12)
[2016-09-19 06:39] LABS: Basophils # 0.1 K/mcL (0.0-0.2); Basophils % 0.6 %; Eosinophils # 0.5 K/mcL (0.0-0.6); Eosinophils % 4.7 %; Hematocrit 25.8 % (35.3-44.9); Hemoglobin 8.4 g/dL (11.5-15.4); Immature Granulocytes % 0.9 % (0-4); Lymphocytes # 1.8 K/mcL (0.6-4.6); Lymphocytes % 16.4 %; Mean Corpuscular HGB Conc 32.6 g/dL (31.6-35.5); Mean Corpuscular Hemoglobin 29.4 pg (28.0-33.3); Mean Corpuscular Volume 90.2 fL (83.0-100.0); Mean Platelet Volume 8.9 fL (9.4-12.4); Monocytes # 1.2 K/mcL (0.0-1.3); Monocytes % 11.3 %; Neutrophils # 7.1 K/mcL (1.6-8.9); Platelet Count 319 K/mcL (140-400); Red Blood Count 2.86 M/mcL (3.82-4.97); Red Cell Distribution Width 14.3 % (11.5-14.5); Segmented Neutrophils % 66.1 %
[2016-09-19 07:03] LABS: Albumin 2.9 g/dL (3.5-5.0); Albumin/Globulin Ratio 0.9 (1.1-2.2); Bilirubin,Total 0.4 mg/dL (0.2-1.2); Calcium 8.9 mg/dL (8.6-10.8); Globulin 3.4 g/dL (2.4-3.5); Potassium 4.1 mEq/L (3.5-4.5); Total Protein 6.3 g/dL (6.0-8.3)
[2016-09-19] MEDS: Insulin LISPRO 300 UNITS/3 ML VIAL SQ SCH ×4 (07:36→22:53)
[2016-09-19] MEDS: amLODIPine 5 MG TABLET PO SCH (07:53)
[2016-09-19] MEDS: Lactulose Oral Soln 20 GM/30 ML UDC PO SCH (07:53)
[2016-09-19] MEDS: Folic Acid 1 MG TABLET PO SCH (07:54)
[2016-09-19] MEDS: Cholecalciferol (D-3) 1,000 UNIT TABLET PO SCH (07:54)
[2016-09-19] MEDS: hydrALAZINE 25 MG TABLET PO SCH ×3 (07:54→22:38)
[2016-09-19] MEDS: Furosemide 40 MG TABLET PO SCH ×2 (07:54→17:12)
[2016-09-19] MEDS: Aspirin 81 MG TAB.CHEW PO SCH (07:54)
[2016-09-19] MEDS: Cyanocobalamin (B-12) 1,000 MCG TABLET PO SCH (07:54)
--- NOTE | 2016-09-19 08:20 | Nephrology Progress Note ---
Date of Encounter: 09/19/16 Time of Encounter: 08:19 - Assessment and Plan (1) CKD (chronic kidney disease) stage 5, GFR less than 15 ml/min Current Visit: Yes Status: Chronic Patient has stage V CK D. She is unable to make medical decisions for herself. We are awaiting establishment of medical guardianship in order to make a decision regarding chronic dialysis. (2) Dementia arising in the senium and presenium Current Visit: Yes Status: Chronic Subjective Principal diagnosis: CKD Interval history: The patient is alert. She is in no acute distress. She voices no complaints. Most recent social service technician note has been reviewed. It sounds as though a guardian may be appointed shortly. Objective - Vital Signs Vital signs: Vital Signs Temp Pulse Resp BP Pulse Ox 09/19/16 07:16 98.1 F 77 17 135/65 94 09/19/16 03:43 98.4 F 77 17 129/61 93 09/18/16 19:42 97.7 F 67 17 131/51 95 09/18/16 16:00 98.0 F 67 17 137/63 97 09/18/16 12:03 98.1 F 72 22 130/65 94 Intake and Output 09/18/16 09/19/16 09/19/16 23:59 07:59 15:59 Intake Total 440 / 440 Output Total 550 / 550 500 / 500 Balance -110 / -110 -500 / -500 Intake: Oral 440 / 440 Output: Catheter 550 / 550 500 / 500 Other: Percent of Meal Consumed 40% Weight 86 kg Blood Glucose* 207 111 Patient Weight 09/19/16 23:59 Weight 86 kg - General Appearance Exam: Patient is alert and pleasant. She is in no acute distress. Lungs to make sure sounds otherwise clear. Heart regular rhythm with a 2/6 ejection murmur. Abdomen was benign. There is some mild edema of the right lower extremity. - Lab 09/19/16 06:25 09/19/16 06:25 Most recent lab results Calcium 8.9 mg/dL (8.6-10.8) 09/19/16 06:25 Phosphorus 5.5 mg/dL (2.3-4.7) H 09/09/16 05:58 Magnesium 1.7 mg/dL (1.6-2.6) 09/09/16 05:58 Urine Creatinine 22 mg/dL 09/09/16 03:15 Urine Total Protein 115 mg/dL (1-14) H 09/09/16 03:15 - VTE Documentation of Mechanical Device: Graduated compression elastic hosiery Consult Discharge Plan - Plan Referrals: NO,PCP [Primary Care Provider] - (Patient will follow up with PCP at [facility])
--- NOTE | 2016-09-19 11:10 | Internal Med Progress Note ---
Date of Encounter: 09/19/16 Time of Encounter: 11:07 - Assessment and plan (1) Anasarca associated with disorder of kidney Current Visit: Yes Status: Acute Assessment and plan: Improved, I/O >-18L Continue lasix to 40mg po bid (2) Anemia Current Visit: Yes Status: Acute Assessment and plan: Anemia of chronic disease, acute on chronic s/p 2 RBCS Hb improved to 8 Folate , iron levels low, receiving iron replacement Continue Vit B12 po, add folate po Monitor heme Qualifiers: Anemia type: unspecified type Qualified Code(s): D64.9 - Anemia, unspecified (3) ESRD (end stage renal disease) Current Visit: Yes Status: Chronic Assessment and plan: Patient is a creatinine of 5.29 and a GFR of 10 review of her medical records demonstrates a significant increase in her creatinine in August 2015 to present. Patient has no decisional capacity Electrolytes are stable for now No need for emergent hemodialysis at this time However, given patient's decisional capacity and placement of her self to hospice prior to arrival here and family dysharmony, with no healthcare POA assigned by patient, patient will need legal guardianship established for consents for medical management including rehab placement going forward Ethics committee has recommended psychiatry input Psych has been consulted 09/14/16, Appreciate neuro eval patient is calm, oriented X2, Awaiting discharge (4) Hyperkalemia, diminished renal excretion Current Visit: Yes Status: Resolved Assessment and plan: Secondary to ESRD Resolved (5) Hyperphosphatemia Current Visit: Yes Status: Chronic Assessment and plan: Secondary to kidney disease Monitor PO4 Renal diet (6) UTI (urinary tract infection) Current Visit: Yes Status: Acute Assessment and plan: Urine culture with lactobacillus species Continue Rocephin, to complete 7 days Course of antibiotics completed Renal USS with no stones or hydronephrosis Qualifiers: Urinary tract infection type: acute cystitis Hematuria presence: without hematuria Qualified Code(s): N30.00 - Acute cystitis without hematuria (7) CAD (coronary artery disease), [place] coronary artery Current Visit: Yes Status: Chronic Assessment and plan: Stable, CAD s/p CABG, - Continue beta guzman, statin, aspirin - Patient is not a candidate for TONY inhibitor as she has end-stage renal disease. D/C tele, [place]istal is DNR-CC. Qualifiers: [place] vs. transplanted heart: [place] heart Associated angina: without angina Qualified Code(s): I25.10 - Atherosclerotic heart disease of [place] coronary artery without angina pectoris (8) Dementia arising in the senium and presenium Current Visit: Yes Status: Chronic Assessment and plan: AOX2 today Continue home meds (9) HLD (hyperlipidemia) Current Visit: Yes Status: Chronic Assessment and plan: Continue patient's home medications simvastatin 10 mg by mouth daily Qualifiers: Hyperlipidemia type: mixed hyperlipidemia Qualified Code(s): E78.2 - Mixed hyperlipidemia (10) HTN (hypertension) Current Visit: Yes Status: Chronic Assessment and plan: Controlled now, continue current meds Qualifiers: Hypertension type: unspecified secondary hypertension Qualified Code(s): I15.9 - Secondary hypertension, unspecified; I15 - Secondary hypertension (11) Type 2 diabetes mellitus Current Visit: Yes Status: Chronic Assessment and plan: A1C 4.8 Monitor FS ADA diet Qualifiers: Diabetes mellitus complication status: with unspecified complications Diabetes mellitus senior living insulin use: unspecified watermelon inspector insulin use status Qualified Code(s): E11.8 - Type 2 diabetes mellitus with unspecified complications (12) Folate deficiency Current Visit: Yes Status: Acute Assessment and plan: Continue folate - Subjective Interval history: 75 year old female significant medical history type II DM, CAD/CABG/AMI, osteoarthritis, osteoporosis/vitamin D deficiency, non-oliguric CKD stage V, dementia unspecified, hypertension, dyslipidemia, urinary retention/rec UTIs, nephrolithiasis, obesity, nonsmoker She is admitted and being managed for anasarca and worsening anemia of chronic disease. The patient also has nephrotic range proteinuria, and fluid overload. Seen at bedside, no new complains BP improved Awaiting legal guardianship Discharge disposition is for SNF/in-patient rehab today if guardianship is established Patient again educated about ongoing processes - Constitutional Vitals: Temp Pulse Resp BP Pulse Ox 98.2 F 72 18 126/45 99 09/19/16 10:49 09/19/16 10:49 09/19/16 10:49 09/19/16 10:49 09/19/16 10:49 General appearance: Present: cooperative, A&O X 2, pleasant, obese. Absent: answers questions appropriately - Head Head exam: Present: atraumatic, normocephalic - Eye Eye exam: Present: PERRL, conjuntiva pink, sclera anicteric Pupils: Present: PERRL - Neck Neck exam general surgery: Present: supple, trachea midline. Absent: lymphadenopathy - Respiratory Respiratory exam: Present: CTAB. Absent: accessory muscle use, rales, rhonchi, wheezes - Cardiovascular Cardiovascular exam: Present: RRR, +S1, +S2. Absent: diastolic murmur, gallop, rubs, systolic murmur - GI/Abdominal GI/Abdominal exam: Present: normal bowel sounds, soft, no peritoneal signs. Absent: distended, tenderness - Extremities Exam Extremities exam: Present: warm, radial pulses palpable and symetrical. Absent : calf tenderness, cyanotic, pedal edema - Neurological Exam Neurological exam: Present: alert, CN II-XII intact, no focal deficits. Absent : oriented X3, pronater drift, facial droop, speech deficit - Skin Skin exam: Present: dry, intact Internal Medicine: Result - Labs CBC & Chem 7: 09/19/16 06:25 09/19/16 06:25 Labs: Short CBC 09/19/16 Range/Units 06:25 WBC 10.7 (4.3-11.1) K/mcL Hgb 8.4 L (11.5-15.4) g/dL Hct 25.8 L (35.3-44.9) % Plt Count 319 (140-400) K/mcL Neutrophils # 7.1 (1.6-8.9) K/mcL BMP 09/19/16 06:25 Sodium 136 Potassium 4.1 Chloride 101 Carbon Dioxide 23 BUN 112 H Creatinine 6.04 H Glucose 98 Calcium 8.9 Liver Function 09/19/16 Range/Units 06:25 Total Bilirubin 0.4 (0.2-1.2) mg/dL AST 20 (5-34) Units/L ALT 18 (0-55) Units/L Alkaline Phosphatase 59 (38-126) Units/L Albumin 2.9 L (3.5-5.0) g/dL - ABG Interpretation ABG results: PT/INR, D-dimer PT 11.9 Seconds (9.4-12.1) 09/08/16 16:37 - VTE Documentation of Mechanical Device: Graduated compression elastic hosiery Consult Discharge Plan - Plan Referrals: NO,PCP [Primary Care Provider] - (Patient will follow up with PCP at [facility])
[2016-09-19] MEDS: Insulin DETEMIR 100 UNIT/ML X5UNITS SQ SCH (22:40)
[2016-09-20] MEDS: *HR* Heparin 5,000 UNIT/ML VIAL SQ SCH ×2 (06:02→16:52)
[2016-09-20 07:24] LABS: Albumin/Globulin Ratio 0.8 (1.1-2.2); Bilirubin,Total 0.7 mg/dL (0.2-1.2); Calcium 9.2 mg/dL (8.6-10.8); Globulin 3.7 g/dL (2.4-3.5); Phosphorous 6.8 mg/dL (2.3-4.7); Potassium 4.3 mEq/L (3.5-4.5); Total Protein 6.7 g/dL (6.0-8.3)
[2016-09-20] MEDS: Insulin LISPRO 300 UNITS/3 ML VIAL SQ SCH ×3 (07:33→16:51)
[2016-09-20] MEDS: hydrALAZINE 25 MG TABLET PO SCH ×2 (07:50→15:58)
[2016-09-20] MEDS: Lactulose Oral Soln 20 GM/30 ML UDC PO SCH (07:50)
[2016-09-20] MEDS: Folic Acid 1 MG TABLET PO SCH (07:50)
[2016-09-20] MEDS: Aspirin 81 MG TAB.CHEW PO SCH (07:50)
[2016-09-20] MEDS: Cyanocobalamin (B-12) 1,000 MCG TABLET PO SCH (07:50)
[2016-09-20] MEDS: amLODIPine 5 MG TABLET PO SCH (07:51)
[2016-09-20] MEDS: Cholecalciferol (D-3) 1,000 UNIT TABLET PO SCH (07:51)
[2016-09-20] MEDS: Furosemide 40 MG TABLET PO SCH ×2 (07:51→16:52)
--- NOTE | 2016-09-20 08:46 | Nephrology Progress Note ---
Date of Encounter: 09/20/16 Time of Encounter: 08:15 - Assessment and Plan (1) ESRD (end stage renal disease) Current Visit: Yes Status: Chronic ESRD in setting of DM, HTN. Significant proteinuria. Patient unreliable if wanting dialysis with given prior Hospice status and family involvement and their decision to have patient brought to hospital. Awaiting court appointed autumnan to establish cronic HD. Currently does not need immediate dialysis. Subjective Principal diagnosis: CKD Interval history: Alert, Pleasant. Knows self and where abouts. Objective - Vital Signs Vital signs: Vital Signs Temp Pulse Resp BP Pulse Ox 09/20/16 07:02 97.9 F 71 16 151/61 97 09/20/16 03:25 98.1 F 90 15 126/47 99 09/19/16 20:33 98.5 F 68 17 137/55 97 09/19/16 15:22 97.9 F 67 16 116/58 95 09/19/16 10:49 98.2 F 72 18 126/45 99 Intake and Output 09/19/16 09/20/16 09/20/16 23:59 07:59 15:59 Output Total 300 / 300 350 / 350 Balance -300 / -300 -350 / -350 Output: Catheter 300 / 300 350 / 350 Other: Weight 85.8 kg Blood Glucose* 199 131 Patient Weight 09/20/16 23:59 Weight 85.8 kg - General Appearance General appearance: Present: well-developed, well-nourished, appears started age EENT: Present: mucous membranes moist Neck: Present: no JVD Respiratory: Present: clear Cardiology: Present: regular rate, regular rhythm Additional Comments: mild LE edema, shriveled appearance Gastrointestinal: Present: normoactive bowel sounds, no tenderness Integumentary: Present: warm and dry Psychiatric: Present: mood/affect appropriate, cooperative - Lab 09/19/16 06:25 09/20/16 06:40 Most recent lab results Calcium 9.2 mg/dL (8.6-10.8) 09/20/16 06:40 Phosphorus 6.8 mg/dL (2.3-4.7) H 09/20/16 06:40 Magnesium 1.7 mg/dL (1.6-2.6) 09/09/16 05:58 Urine Creatinine 22 mg/dL 09/09/16 03:15 Urine Total Protein 115 mg/dL (1-14) H 09/09/16 03:15 - VTE Documentation of Mechanical Device: Graduated compression elastic hosiery Consult Discharge Plan - Plan Referrals: NO,PCP [Primary Care Provider] - (Patient will follow up with PCP at [facility])
--- NOTE | 2016-09-20 12:22 | Internal Med Progress Note ---
Date of Encounter: 09/20/16 Time of Encounter: 12:22 - Assessment and plan (1) Anasarca associated with disorder of kidney Current Visit: Yes Status: Acute Assessment and plan: Improved, I/O >-18L Continue lasix to 40mg po bid (2) Anemia Current Visit: Yes Status: Acute Assessment and plan: Anemia of chronic disease, acute on chronic s/p 2 RBCS Hb improved to 8 Folate , iron levels low, receiving iron replacement Continue Vit B12 po, add folate po Monitor heme Qualifiers: Anemia type: unspecified type Qualified Code(s): D64.9 - Anemia, unspecified (3) ESRD (end stage renal disease) Current Visit: Yes Status: Chronic Assessment and plan: Patient is a creatinine of 5.29 and a GFR of 10 review of her medical records demonstrates a significant increase in her creatinine in August 2015 to present. Patient has no decisional capacity Electrolytes are stable for now No need for emergent hemodialysis at this time However, given patient's decisional capacity and placement of her self to hospice prior to arrival here and family dysharmony, with no healthcare POA assigned by patient, patient will need legal guardianship established for consents for medical management including rehab placement going forward Ethics committee has recommended psychiatry input Psych has been consulted 09/14/16, Appreciate neuro eval patient is calm, oriented X2, Awaiting discharge (4) Hyperkalemia, diminished renal excretion Current Visit: Yes Status: Resolved Assessment and plan: Secondary to ESRD Resolved (5) Hyperphosphatemia Current Visit: Yes Status: Chronic Assessment and plan: Secondary to kidney disease Monitor PO4 Renal diet (6) UTI (urinary tract infection) Current Visit: Yes Status: Acute Assessment and plan: Urine culture with lactobacillus species Course of antibiotics completed Renal USS with no stones or hydronephrosis Qualifiers: Urinary tract infection type: acute cystitis Hematuria presence: without hematuria Qualified Code(s): N30.00 - Acute cystitis without hematuria (7) CAD (coronary artery disease), [place] coronary artery Current Visit: Yes Status: Chronic Assessment and plan: Stable, CAD s/p CABG, - Continue beta guzman, statin, aspirin - Patient is not a candidate for TONY inhibitor as she has end-stage renal disease. D/C tele, paient is DNR-CC. Qualifiers: [place] vs. transplanted heart: [place] heart Associated angina: without angina Qualified Code(s): I25.10 - Atherosclerotic heart disease of [place] coronary artery without angina pectoris (8) Dementia arising in the senium and presenium Current Visit: Yes Status: Chronic Assessment and plan: AOX2 today Continue home meds (9) HLD (hyperlipidemia) Current Visit: Yes Status: Chronic Assessment and plan: Continue patient's home medications simvastatin 10 mg by mouth daily Qualifiers: Hyperlipidemia type: mixed hyperlipidemia Qualified Code(s): E78.2 - Mixed hyperlipidemia (10) HTN (hypertension) Current Visit: Yes Status: Chronic Assessment and plan: Controlled now, continue current meds Qualifiers: Hypertension type: unspecified secondary hypertension Qualified Code(s): I15.9 - Secondary hypertension, unspecified; I15 - Secondary hypertension (11) Type 2 diabetes mellitus Current Visit: Yes Status: Chronic Assessment and plan: A1C 4.8 Monitor FS ADA diet Qualifiers: Diabetes mellitus complication status: with unspecified complications Diabetes mellitus senior living insulin use: unspecified senior living insulin use status Qualified Code(s): E11.8 - Type 2 diabetes mellitus with unspecified complications (12) Folate deficiency Current Visit: Yes Status: Acute Assessment and plan: Continue folate - Subjective Interval history: 75 year old female significant medical history type II DM, CAD/CABG/AMI, osteoarthritis, osteoporosis/vitamin D deficiency, non-oliguric CKD stage V, dementia unspecified, hypertension, dyslipidemia, urinary retention/rec UTIs, nephrolithiasis, obesity, nonsmoker She is admitted and being managed for anasarca and worsening anemia of chronic disease. The patient also has nephrotic range proteinuria, and fluid overload. Seen at bedside, no new complains BP improved Legal guardianship has been established For D/C to SNF when socially cleared Patient is medically cleared for discharge - Constitutional Vitals: Temp Pulse Resp BP Pulse Ox 97.9 F 71 16 151/61 97 09/20/16 07:02 09/20/16 07:02 09/20/16 07:02 09/20/16 07:02 09/20/16 07:02 General appearance: Present: cooperative, A&O X 2, pleasant, obese. Absent: answers questions appropriately - Head Head exam: Present: atraumatic, normocephalic - Eye Eye exam: Present: PERRL, conjuntiva pink, sclera anicteric Pupils: Present: PERRL - Neck Neck exam general surgery: Present: supple, trachea midline. Absent: lymphadenopathy - Respiratory Respiratory exam: Present: CTAB. Absent: accessory muscle use, rales, rhonchi, wheezes - Cardiovascular Cardiovascular exam: Present: RRR, +S1, +S2. Absent: diastolic murmur, gallop, rubs, systolic murmur - GI/Abdominal GI/Abdominal exam: Present: normal bowel sounds, soft, no peritoneal signs. Absent: distended, tenderness - Extremities Exam Extremities exam: Present: warm, radial pulses palpable and symetrical. Absent : calf tenderness, cyanotic, pedal edema - Neurological Exam Neurological exam: Present: alert, CN II-XII intact, no focal deficits. Absent : oriented X3, pronater drift, facial droop, speech deficit - Skin Skin exam: Present: dry, intact Internal Medicine: Result - Labs CBC & Chem 7: 09/19/16 06:25 09/20/16 06:40 Labs: BMP 09/20/16 06:40 Sodium 135 L Potassium 4.3 Chloride 101 Carbon Dioxide 21 BUN 110 H Creatinine 6.26 H Glucose 131 H Calcium 9.2 Liver Function 09/20/16 Range/Units 06:40 Total Bilirubin 0.7 (0.2-1.2) mg/dL AST 18 (5-34) Units/L ALT 16 (0-55) Units/L Alkaline Phosphatase 58 (38-126) Units/L Albumin 3.0 L (3.5-5.0) g/dL - ABG Interpretation ABG results: PT/INR, D-dimer PT 11.9 Seconds (9.4-12.1) 09/08/16 16:37 - VTE Documentation of Mechanical Device: Graduated compression elastic hosiery Consult Discharge Plan - Plan Referrals: NO,PCP [Primary Care Provider] - (Patient will follow up with PCP at [facility])
[2016-09-20] MEDS: Darbepoetin 100 MCG/0.5 ML SYRINGE SQ SCH (12:42)
[2016-09-20 15:39] VITALS: BP 135/64
--- NOTE | 2016-09-20 18:14 | Physician Discharge Referral ---
ExtendedCare Referral Info Transfer To: [facility] Provider in Charge after Transfer: PCP Institutional Level of Care: Skilled - Diagnosis (1) Anasarca associated with disorder of kidney Priority: Primary Status: Resolved (2) Anemia Priority: Primary Status: Acute (3) ESRD (end stage renal disease) Priority: Secondary Status: Chronic (4) Hyperkalemia, diminished renal excretion Priority: Primary Status: Resolved (5) Hyperphosphatemia Priority: Secondary Status: Chronic (6) UTI (urinary tract infection) Priority: Primary Status: Acute (7) CAD (coronary artery disease), [place] coronary artery Priority: Secondary Status: Chronic (8) Dementia arising in the senium and presenium Priority: Secondary Status: Chronic (9) HLD (hyperlipidemia) Priority: Secondary Status: Chronic (10) HTN (hypertension) Priority: Secondary Status: Chronic (11) Type 2 diabetes mellitus Priority: Secondary Status: Chronic (12) Folate deficiency Priority: Secondary Status: Acute Prognosis: Fair Aware of Diagnosis: Patient Aware of Prognosis: Patient - Transfer Medications Home Medications: Acetaminophen [Tylenol] 500 mg PO Q6HR 09/08/16 [History] Amlodipine Besylate 10 mg PO DAILY 09/08/16 [History] Aspirin 81 mg PO DAILY 09/08/16 [History] Cholecalciferol (Vitamin D3) [Vitamin D] 1,000 unit PO DAILY 09/08/16 [History] Cyanocobalamin (Vitamin B-12) [Vitamin B-12] 1,000 mcg SL DAILY 09/08/16 [ History] Furosemide [Lasix] 40 mg PO DAILY 09/08/16 [History] Glucagon,Human Recombinant [Glucagon Emergency Kit] 1 mg IJ ONCE PRN 09/08/16 [ History] Insulin Glargine,Hum.rec.anlog [Lantus Solostar] 5 unit SQ HS 09/08/16 [History] Labetalol HCl 200 mg PO BID 09/08/16 [History] Lactulose 60 ml PO BID PRN 09/08/16 [History] Lidocaine [Anecream5] 1 appl TP TID 09/08/16 [History] Pravastatin Sodium [Pravachol] 20 mg PO DAILY 09/08/16 [History] Spironolactone [Aldactone] 25 mg PO DAILY 09/08/16 [History] Allergies/Adverse Reactions: Allergies iodine Allergy (Verified 01/24/15 18:30) Rash Penicillins [PCN] Allergy (Verified 01/24/15 18:30) Redness of Skin - Respiratory Orders Smoking Cessation: Smoking cessation has been advised. For more information, call the [place] Tobacco Quit Line at 4-015-FZTI-NOW. - Advance Directives Code Status: DNR-Comfort Care - Mobility Orders Ambulate - Diet Orders No Concentrated Sweets, Renal, Cardiac CERTIFICATION: I certify that the transfer of the above named patient to an Extended Care Facility is necessary for the continuing treatment of the diagnosis listed. The above information is true and accurate reflection of patient's current condition. Confidential - Redisclosure prohibited without a patient's written consent.
--- NOTE | 2016-09-20 18:19 | Discharge Summary ---
Date of Encounter: 09/20/16 Time of Encounter: 18:14 - Discharge Diagnosis (1) Anasarca associated with disorder of kidney Priority: Primary Status: Resolved (2) Anemia Priority: Primary Status: Acute Qualifiers: Anemia type: unspecified type Qualified Code(s): D64.9 - Anemia, unspecified (3) ESRD (end stage renal disease) Priority: Secondary Status: Chronic (4) Hyperkalemia, diminished renal excretion Priority: Secondary Status: Resolved (5) Hyperphosphatemia Priority: Secondary Status: Chronic (6) UTI (urinary tract infection) Priority: Primary Status: Acute Qualifiers: Urinary tract infection type: acute cystitis Hematuria presence: without hematuria Qualified Code(s): N30.00 - Acute cystitis without hematuria (7) CAD (coronary artery disease), [place] coronary artery Priority: Secondary Status: Chronic Qualifiers: [place] vs. transplanted heart: [place] heart Associated angina: without angina Qualified Code(s): I25.10 - Atherosclerotic heart disease of [place] coronary artery without angina pectoris (8) Dementia arising in the senium and presenium Priority: Secondary Status: Chronic (9) HLD (hyperlipidemia) Priority: Secondary Status: Chronic Qualifiers: Hyperlipidemia type: mixed hyperlipidemia Qualified Code(s): E78.2 - Mixed hyperlipidemia (10) HTN (hypertension) Priority: Secondary Status: Chronic Qualifiers: Hypertension type: unspecified secondary hypertension Qualified Code(s): I15.9 - Secondary hypertension, unspecified; I15 - Secondary hypertension (11) Type 2 diabetes mellitus Priority: Secondary Status: Chronic Qualifiers: Diabetes mellitus complication status: with unspecified complications 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 insulin use status Qualified Code(s): E11.8 - Type 2 diabetes mellitus with unspecified complications (12) Folate deficiency Priority: Primary Status: Acute - Discharge Medications Home Medications: Acetaminophen [Tylenol] 500 mg PO Q6HR 09/08/16 [History] Amlodipine Besylate 10 mg PO DAILY 09/08/16 [History] Aspirin 81 mg PO DAILY 09/08/16 [History] Cholecalciferol (Vitamin D3) [Vitamin D] 1,000 unit PO DAILY 09/08/16 [History] Cyanocobalamin (Vitamin B-12) [Vitamin B-12] 1,000 mcg SL DAILY 09/08/16 [ History] Furosemide [Lasix] 40 mg PO DAILY 09/08/16 [History] Glucagon,Human Recombinant [Glucagon Emergency Kit] 1 mg IJ ONCE PRN 09/08/16 [ History] Insulin Glargine,Hum.rec.anlog [Lantus Solostar] 5 unit SQ HS 09/08/16 [History] Labetalol HCl 200 mg PO BID 09/08/16 [History] Lactulose 60 ml PO BID PRN 09/08/16 [History] Lidocaine [Anecream5] 1 appl TP TID 09/08/16 [History] Pravastatin Sodium [Pravachol] 20 mg PO DAILY 09/08/16 [History] Spironolactone [Aldactone] 25 mg PO DAILY 09/08/16 [History] Allergies/Adverse Reactions: Allergies iodine Allergy (Verified 01/24/15 18:30) Rash Penicillins [PCN] Allergy (Verified 01/24/15 18:30) Redness of Skin Date of admission: 09/10/16 17:49 Primary care physician: PCP NO Consults: 09/13/16 18:34 Consult to Ethics [CONS] Routine Comment: Reason for Consult: Patient presented under [facility] hospice. No POA. Family concerns. Unable to make own decisions. Lacks Capacity. Call Completed: No 09/14/16 13:40 Consult to Psychiatry [CONS] Stat Consulting Provider: Psychiatry Sheron Reason for Consult: evaluate for legal guardianship Call Completed: Yes 09/16/16 11:31 Consult to Neurology [CONS] Routine Consulting Provider: [facility] Reason for Consult: For neuropsychiatry evaluation for dementia Call Completed: No Discharging clinician: Stef Bello Anticipated date of discharge: 09/20/16 - Patient Status Disposition: Transfer SNF Condition: Good Functional capacity at discharge: uses cane/walker Overall status at discharge: patient is progressing back to baseline - Discharge Instructions Follow Up With: NO,PCP [Primary Care Provider] - (Patient will follow up with PCP at [facility]) - Diet and Activity Activity: as per physical therapy Diet: diabetic diet, low fat, low cholesterol, low salt diet, other (renal diet) Interval History: See below Hospital course: Ms. Montoya is a 75 year old female with dementia, CKD 5, Anemia of chronic disease, CAD, DM, HTN, HLD, Iron, folate and B12 deficiency anemia She was admitted and managed for anasarca, hyperkalemia, hyperphosphatemia and UTI She was started on bumex and changed to lasix po with satisfactory diuresis Patient also had a UTI and has completed her antibiotics course Hyperkalemia resolved with medical treatment and discontinuation of spironlactone She received 2 units of blood and IV iron therapy with improvement in her anemia. She has been maintained on oral therapy as well as RUBIN She is stable to be discharged to SNF She needs follow up with Dr. Jacinto's office for her CKD and preparation for initiation of hemodialysis in the near future - Time Spent with Patient Total time spent providing and/or coordinating discharge services: Less than 30 minutes - Constitutional Vitals: Temp Pulse Resp BP Pulse Ox 97.9 F 84 16 135/64 97 09/20/16 15:38 09/20/16 15:38 09/20/16 15:38 09/20/16 15:38 09/20/16 15:38 General appearance: Present: cooperative, A&O X 2, pleasant, obese. Absent: answers questions appropriately - Head Head exam: Present: atraumatic, normocephalic - Eye Eye exam: Present: PERRL, conjuntiva pink, sclera anicteric Pupils: Present: PERRL - Neck Neck exam general surgery: Present: supple, trachea midline. Absent: lymphadenopathy - Respiratory Respiratory exam: Present: CTAB. Absent: accessory muscle use, rales, rhonchi, wheezes - Cardiovascular Cardiovascular exam: Present: RRR, +S1, +S2. Absent: diastolic murmur, gallop, rubs, systolic murmur - GI/Abdominal GI/Abdominal exam: Present: normal bowel sounds, soft, no peritoneal signs. Absent: distended, tenderness - Extremities Exam Extremities exam: Present: warm, radial pulses palpable and symetrical. Absent : calf tenderness, cyanotic, pedal edema - Neurological Exam Neurological exam: Present: alert, CN II-XII intact, no focal deficits. Absent : oriented X3, pronater drift, facial droop, speech deficit - Skin Skin exam: Present: dry, intact - VTE Documentation of Mechanical Device: Graduated compression elastic hosiery
== END 2016-09-20 20:00 | DRG 470 ==
LOC: 2ANU 15:11 → EMEROO 15:11 → 2ANU 18:49 → SUATTDRO 09-10 17:49
PROVIDERS: ADMIT Internal Medicine Endocrinology, Diabetes & Metabolism; ATTEND Internal Medicine